=== PATIENT | male | born 1945 | race Caucasian/White ===

== ENCOUNTER 2017-01-12 04:00 | Inpatient (IN) | payer MEDICARE, BC ==
[~2017-01-12] VITALS: Ht 182.9 cm; Wt 98.6 kg
[2017-01-12] MEDS ORDERED: SODIUM CHLORIDE 0.9% 1L BAG IV* STA (04:17)
[2017-01-12] MEDS ORDERED: ACETAMINOPHEN 325 MG TAB PO STA (04:17)
[2017-01-12 04:44] LABS: ADD SCAN DIFF NO
--- NOTE | 2017-01-12 04:46 | RADRPT ---
PROCEDURE: XR Chest. CLINICAL INDICATION: Possible Sepsis TECHNIQUE: Single frontal chest x-ray. COMPARISON: None. FINDINGS: There is moderate elevation of the right hemidiaphragm apparent with right lower lung volume loss. Increased densities are seen in the right mid and lower lung and in the left lower lung which could be due to pulmonary edema or pneumonia The heart does not appear to be grossly enlarged. Mild pulm onary vascular prominence is apparent. ECG leads projected over the chest. Mild degenerative change s at left shoulder. The patient is rotated to the right. IMPRESSION: Moderate elevation of the right hemidiaphragm apparent with right lower lung volume loss. Increased densities are seen in the right mid and lower lung and in the left lower lung which could be due to pulmonary edema or pneumonia The heart does not appear to be grossly enlarged. Mild pulmonary vas cular prominence is apparent. RPTAT: HJES .Klaus Rodriguez MD, Date Time Electronically viewed and signed by .Klaus Rodriguez MD, on 01/12/2017 04:45 .S/
[2017-01-12 05:00] LABS: ABNORMAL IP MESSAGE 1; HEMATOCRIT 40.5 % (42.0-52.0); MEAN CORPUSCULAR HEMOGLOBIN 26.6 pg (29.0-33.0); MEAN CORPUSCULAR HGB CONC 32.1 g/dl (32.0-37.0); MEAN CORPUSCULAR VOLUME 82.8 fl (82.0-101.0); MEAN PLATELET VOLUME 9.3 fl (7.4-10.4); PLATELET COUNT 119 10^3/UL (140-415); RED BLOOD COUNT 4.89 10^6/ul (4.70-6.10); RED CELL DISTRIBUTION WIDTH 16.5 % (11.5-14.5); WHITE BLOOD COUNT 11.9 10^3/ul (4.8-10.8)
[2017-01-12] MEDS ORDERED: CEFEPIME 2GM/50 ML (PMX) 50 ML IVPB STA (05:01)
[2017-01-12 05:02] LABS: INR 2.54; PROTIME 27.7 Sec (12.2-14.2); PT RATIO 2.2
[2017-01-12 05:04] LABS: PARTIAL THROMBOPLASTIN TIME 47.7 Sec (25.0-35.0)
[2017-01-12 05:05] LABS: ALBUMIN 3.5 g/dl (3.3-4.9); POTASSIUM 3.7 mmol/L (3.5-5.1)
[2017-01-12 05:07] LABS: BILIRUBIN,INDIRECT 2.1 mg/dl (0-1.1); BILIRUBIN,TOTAL 2.1 mg/dl (0.2-1.3); CREATININE 1.27 mg/dl (0.61-1.24)
[2017-01-12 05:08] LABS: ALBUMIN/GLOBULIN RATIO 1.12; TOTAL PROTEIN 6.6 g/dl (6.1-8.1)
[2017-01-12 05:09] LABS: CALCIUM 8.5 mg/dl (8.4-10.2)
[2017-01-12 05:18] LABS: TROPONIN-I 0.039 ng/ml (0.00-0.12)
[2017-01-12 05:20] LABS: AADO2 Arterial 336.1 mmHg (7.0-24.0); Allen Test ACCEPTAB; Arterial Base Excess 2.9 mmol/L (-3.0-3); Arterial COHb 1.9 % (0.0-3.0); Arterial Fraction of Oxyhgb 92.3 % (93.0-99.0); Arterial HCO3 25.8 mmol/L (22.0-26.0); Arterial MetHb 5.3 % (0.0-1.5); Arterial Total Hemglobin 13.2 g/dl (12.0-18.0); Blood Gas IEPAP 15/5; MODE MASK - BIPAP
--- NOTE | 2017-01-12 05:21 | ERA ---
ER Documentation Chief Complaint Date/Time DATE: 01/12/17 TIME: 05:18 Chief Complaint weakness, fever HPI This is a 71-year-old male brought in by rescue for weakness and fever. Patient states been feeling weak and dizzy over the past few days. Fever started today. Patient's history is limited. Patient is noted to be satting 86 % on room air. ROS All systems reviewed and are negative except as per history of present illness. PMhx/Soc Anesthesia Reaction: No Hx Neurological Disorder: No Hx Respiratory Disorders: Yes (pneumonia) Hx Psychiatric Problems: No Hx Miscellaneous Medical Probl: Yes (diabetes) Hx Alcohol Use: No Hx Substance Use: No Hx Tobacco Use: No Smoking Status: Never smoker Physical Exam Vitals Vital Signs Date Time Temp Pulse Resp B/P Pulse Ox O2 Delivery O2 Flow Rate FiO2 01/12/17 04:46 101.3 107 20 169/70 96 BIPAP 01/12/17 04:40 103 97 100 01/12/17 04:06 101.6 112 20 175/86 97 Physical Exam Const: [] Head: Atraumatic Eyes: Normal Conjunctiva ENT: Normal External Ears, Nose and Mouth. Neck: Full range of motion..~ No meningismus. Resp: Clear to auscultation bilaterally Cardio: Regular rate and rhythm, no murmurs Abd: Soft, non tender, non distended. Normal bowel sounds Skin: No petechiae or rashes Back: No midline or flank tenderness Ext: No cyanosis, or edema Neur: Awake and alert Psych: Normal Mood and Affect Result Diagram: 01/12/17 0420 01/12/17 0420 Results 24 hrs Laboratory Tests Test 01/12/17 04:20 Activated Partial Thromboplast Time 47.7Sec Alanine Aminotransferase (ALT/SGPT) 25IU/L Albumin 3.5g/dl Albumin/Globulin Ratio 1.12 Alkaline Phosphatase 109IU/L Anion Gap 14 Aspartate Amino Transf (AST/SGOT) 24IU/L Blood Urea Nitrogen 23mg/dl Calcium Level Pending Carbon Dioxide Level 30mmol/L Chloride Level 88mmol/L Creatinine 1.27mg/dl Direct Bilirubin 0.00mg/dl Globulin 3.10g/dl Glucose Level 237mg/dl Hematocrit 40.5% Hemoglobin 13.0g/dl INR International Normalized Ratio 2.54 Indirect Bilirubin 2.1mg/dl Lactic Acid Level 2.9mmol/L Mean Corpuscular Hemoglobin 26.6pg Mean Corpuscular Hemoglobin Concent 32.1g/dl Mean Corpuscular Volume 82.8fl Mean Platelet Volume 9.3fl Platelet Count 76867^3/UL Potassium Level 3.7mmol/L Prothrombin Time 27.7Sec Prothrombin Time Ratio 2.2 Red Blood Count 4.8910^6/ul Red Cell Distribution Width 16.5% Sodium Level 128mmol/L Total Bilirubin 2.1mg/dl Total Protein 6.6g/dl Troponin I Pending White Blood Count 11.910^3/ul Current Medications Medications (Trade) Dose Ordered Sig/Ricardo Route PRN Reason Start Time Stop Time Status Last Admin Dose Admin Sodium Chloride (NS) 3,100 ml BOLUS OVER 2 HOURS STAT IV* 01/12/17 04:17 01/12/17 04:18 DC 01/12/17 04:56 Acetaminophen (Tylenol Tab) 650 mg ONCE STAT PO 01/12/17 04:17 01/12/17 04:19 DC 01/12/17 04:54 Furosemide 40 mg 40 mg ONCE ONCE IV 01/12/17 05:30 01/12/17 05:31 UNV Cefepime HCl 50 ml @ 100 mls/hr ONCE STAT IVPB 01/12/17 05:01 01/12/17 05:30 UNV Vancomycin HCl (Vancocin) 250 ml @ 125 mls/hr ONCE ONCE IVPB 01/12/17 05:30 01/12/17 07:29 UNV Procedures/MDM EKG: Rate/Rhythm: Normal Sinus Rhythm QRS, ST, T-waves: No changes consistent w/ acute ischemia Impression: No evidence of ischemia or arrhythmia Chest X-ray 1V Interpreted by me: Soft Tissue: No acute abnormalities Bones: No acute abnormalities Mediastinum/Cardiac Silhouette/Lungs: Right lower lobe pneumonia Patient's infectious symptoms have not stabilized and the patient is at risk of rapid decompensation. The patient will be admitted for careful hydration, antibiotic therapy, and infectious source control. Severe Sepsis Assessment: Infectious Source: Pneumonia End organ damage indicated by: [Lactate > 2.0 mmol/L Acute Resp Failure (sat < 92% w/o oxygen) Severe Sepsis Managment: Blood Cultures X 2 before broad spectrum antibiotics initiated within 3 hours of recognition. 30 ml/kg NS bolus Completed Initial Lactate: 2.9 Repeat Lactate pending Critical Care: Time: 45 minutes Treatments/Evaluations: Emergent fluid management, while maintaining close respiratory support. Immediate broad spectrum antibiotic therapy. Simultaneous assessment for possible sources in order to direct therapy. Consideration for invasive and chemical support to prevent respiratory or cardiac collapse. Septic Shock Assessment (1 hour post 30 ml/kg fluid bolus): Hypotension (SBP < 90 or 40 mmHg drop, MAP < 65): [No] Lactic acid > 4.0 [No] Perfusion Reassessment for Septic Shock: Temp 98.7, Pulse 108, RR 17, BP 132/77 Heart Exam: [Tachycardic] Lung Exam: [No Crackles] Capillary Refill: [Delayed] Peripheral Pulses: [Radially present] Skin: [Mottled, pale] Accepting Care Team: Current data and ongoing care discussed. Time: 5 AM Primary Provider: Hospitalist Consulting: [XOXOXO] Outstanding Data: none Critical Care: Time: 45 minutes Treatments/Evaluations: Close monitoring and treatment of unstable vital signs, cardiorespiratory, and neurologic status, while maintaining tight balance of fluid, respiratory, and cardiac interventions. Departure Diagnosis: Primary Impression: Sepsis Qualified Code: A41.9 - Sepsis, due to unspecified organism Condition: Critical JYOTHI TORRE Jan 12, 2017 05:21
[2017-01-12] MEDS ORDERED: FUROSEMIDE 40 MG INJ IV ONE (05:30)
[2017-01-12] MEDS ORDERED: VANCOMYCIN 1 GM (PMX) 250 ML IVPB ONE (05:30)
[2017-01-12] MEDS ORDERED: ONDANSETRON 4 MG INJ IV PRN (06:30)
[2017-01-12] MEDS ORDERED: NA PHOSPHATE/BIPHOS 133 ML ENEMA PR PRN (06:30)
[2017-01-12] MEDS ORDERED: LORAZEPAM 2 MG INJ IV PRN (06:30)
[2017-01-12] MEDS ORDERED: morphine 2 MG INJ IV PRN (06:30)
[2017-01-12] MEDS ORDERED: hydrALAzine 20 MG INJ IV PRN (06:30)
[2017-01-12] MEDS ORDERED: MAGNESIUM HYDROXIDE 30ML CUP PO PRN (06:30)
[2017-01-12] MEDS ORDERED: NACL 0.9% 3 ML SYG IV SCH (06:30)
[2017-01-12] MEDS ORDERED: DOCUSATE SODIUM 100 MG CAP PO PRN (06:30)
[2017-01-12] MEDS ORDERED: HYDROCODONE/APAP (5/325) TAB PO PRN (06:30)
[2017-01-12] MEDS ORDERED: VANCOMYCIN IV PER PHARMACY XX SCH (06:30)
[2017-01-12] MEDS ORDERED: NITROGLYCERIN (SL) 0.4 MG TAB SL PRN (06:30)
[2017-01-12] MEDS ORDERED: ACETAMINOPHEN 325 MG TAB PO PRN (06:30)
[2017-01-12] MEDS ORDERED: ALBUTEROL/IPRATROPIUM (NEB) 3 ML AMP HHN PRN (06:30)
[2017-01-12] MEDS: SOD CHLORIDE 0.45% 1,000 ML IV SCH ×2 (07:07→19:28)
--- NOTE | 2017-01-12 07:32 | HP ---
DATE OF ADMISSION: 01/12/2017 CHIEF COMPLAINT: Weakness and fevers. HISTORY OF PRESENT ILLNESS: A 71-year-old male with past medical history of diabetes and prior pneu monia who has been having weakness and fever for the last few days. He has also been feeling dizzy as well. When the patient arrived, he had a temperature of 101.6. He felt feverish at home as well . He also was noted today to be saturating at 86% on room air. Most of the information is obtained from the ER documentation as the patient is unable to provide a full HPI. He is presently on BiPAP . Again, that was started in the ER after an ABG today showed pH of 7.49, pCO2 of 34, PaO2 of 342, and bicarbonate of 25.8. The patient was also found with elevated lactic acid of 2.9 and some renal insufficiency and hyponatremia as well. PAST MEDICAL HISTORY: As stated above. ALLERGIES: NO KNOWN DRUG ALLERGIES. MEDICATIONS AT HOME: None. PAST SURGICAL HISTORY: None. SOCIAL HISTORY: Negative for smoking, drinking, or IV drug abuse. FAMILY HISTORY: Noncontributory today. PHYSICAL EXAMINATION: VITAL SIGNS: T-max 101.6, pulse 112 to 103, respirations 21, blood pressure 175 to 169 systolic ove r 86 to 70 diastolic, saturating at 96% on BiPAP. GENERAL: The patient is lying in bed on BiPAP, in no acute distress. HEENT: Pupils equal, round, react to light. Extraocular muscles intact. NECK: Supple, no thyromegaly. LUNGS: Distant breath sounds bilaterally. CARDIOVASCULAR: S1, S2 heard. No rubs or gallops. ABDOMEN: Soft, nontender, nondistended. Normal bowel sounds. No rebound or guarding. MUSCULOSKELETAL: No lower extremity edema bilaterally. NEUROLOGIC: No focal deficits. LABORATORIES: WBC 11.9, hemoglobin 13.0, hematocrit 40.5, platelets 119. Sodium 138, potassium 3.7 , chloride 88, CO2 30, BUN 23, creatinine 1.27, glucose 237. Lactic acid is 2.9, total bilirubin is 2.1, direct is 0.0. The rest of the LFTs are normal. The coags show PT of 27.7, INR of 2.5, PTT o f 47.7. The patient had a chest x-ray today that showed moderate elevation of the right hemidiaphra gm apparent with right lower lung volume loss, increased density seen in the right mid and lower liz g and in the left lower lung which could be due to pulmonary edema or pneumonia. Heart does not sebastián ear to be grossly enlarged, mild pulmonary vascular prominence is apparent. ASSESSMENT AND PLAN: A 71-year-old male coming in with hypoxia and fever and weakness with signs of sepsis with lactic acidosis, most likely secondary to upper respiratory infections. 1. Sepsis. Again, possible source being upper respiratory infection. He also has some respiratory distress. We will continue BiPAP. Consider getting pulmonary consult, put him on broad-spectrum a ntibiotics to treat upper respiratory infection. Check TSH, A1c, lipid panel. Tylenol p.r.n. pain and fevers as well, and pain control medications with Douglas and morphine p.r.n. as well. Check CBC and basic metabolic panel in the morning. Continue IV fluids and trend lactic acid as well. 2. Respiratory distress. Again, see #1. Continue DuoNebs p.r.n. as well and BiPAP, try to wean of f BiPAP as tolerated. 3. Hypertension. Blood pressure is high normal, hydralazine p.r.n. 4. Elevated INR. Unclear source. It is unknown if the patient is taking any Coumadin or other ant icoagulants at home. For now, hold all anticoagulants and continue to monitor INR. Will monitor fo r any signs of bleeding. 5. Gastrointestinal prophylaxis, proton pump inhibitor. 6. Deep venous thrombosis prophylaxis, sequential compression devices. Dictated By: BETH COSTA Conf#: [id number] DID#: [id number]
[2017-01-12] MEDS ORDERED: INSU300I SQ ×2 (08:59→12:23)
[2017-01-12] MEDS ORDERED: HEPARIN 5,000 UNIT/0.5 ML SYG SC SCH (09:00)
[2017-01-12] MEDS ORDERED: CYCL100C20 PO (10:13)
[2017-01-12] MEDS ORDERED: VANCOMYCIN 1.75 GM in NS 500 ML IVPB SCH (11:00)
[2017-01-12] MEDS ORDERED: PRED5 PO (11:24)
[2017-01-12] MEDS ORDERED: MAGN400T28 PO ×2 (11:26→12:23)
[2017-01-12] MEDS ORDERED: WARF4TAB52 PO (11:27)
[2017-01-12] MEDS ORDERED: WARF5TAB72 PO (11:33)
[2017-01-12] MEDS: VANCOMYCIN 1 GM in NS 250 ML IVPB SCH (11:36)
[2017-01-12 11:56] LABS: BASOPHIL # 0.1 10^3/ul (0.0-0.1); LYMPHOCYTES # 0.1 10^3/ul (0.8-2.9); MONOCYTE # 0.6 10^3/ul (0.3-0.9); NEUTROPHIL # 6.4 10^3/ul (1.6-7.5)
[2017-01-12] MEDS ORDERED: ADV25050 INHALATION (12:17)
[2017-01-12] MEDS ORDERED: DAP100 PO (12:18)
[2017-01-12] MEDS ORDERED: ALBU18HF INHALATION (12:18)
[2017-01-12] MEDS ORDERED: ATOR40TA68 PO (12:18)
[2017-01-12] MEDS ORDERED: FLUT16SP17 NASAL (12:19)
[2017-01-12] MEDS ORDERED: FLUT1AER INHALATION (12:19)
[2017-01-12] MEDS ORDERED: DUTA0.5C PO (12:19)
[2017-01-12] MEDS ORDERED: INSU200I SQ (12:21)
[2017-01-12] MEDS ORDERED: IPRA12.93 INHALATION (12:21)
[2017-01-12] MEDS ORDERED: LANT3I SC ×2 (12:22)
[2017-01-12] MEDS ORDERED: MYCO500T13 PO (12:23)
[2017-01-12] MEDS ORDERED: UMEC62.5 IH (12:24)
[2017-01-12] MEDS ORDERED: OMEP20CA16 PO (12:24)
[2017-01-12] MEDS: PIPER-TAZO 3.375 GM IV (PMX) 100 ML IVPB SCH ×3 (13:57→23:16)
[2017-01-12 16:34] LABS: AADO2 Arterial 251.7 mmHg (7.0-24.0); Allen Test ACCEPTAB; Arterial Base Excess 0.6 mmol/L (-3.0-3); Arterial COHb 1.2 % (0.0-3.0); Arterial Fraction of Oxyhgb 89.2 % (93.0-99.0); Arterial HCO3 24.5 mmol/L (22.0-26.0); Arterial Total Hemglobin 12.6 g/dl (12.0-18.0); MODE MASK - SIMPLE
--- NOTE | 2017-01-12 18:18 | RADRPT ---
Echocardiogram Report Patient Name: CARLOS DAWSON Gender: Male Date: 1945 Study Date: 12-Jan-2017 Personnel Psychologist: Harmony Blanco RDCS Location: [facility], [place] Ref. Physician: BETH PATTON Quality: Adequate Procedures: Transthoracic echocardiogram with complete 2D, M-Mode, and doppler examination. Indications: Chest Pain. 2D/M Mode Doppler Measurement Value Normal Ranges Measurement Value Normal Ranges LVIDd 2D 4.8 3.5 - 5.6 cm AV Peak Alejo 1.4 m/sec LVIDs 2D 3.2 2.1 - 4.1 cm AV Peak PG 7.0 mmHg FS 2D 32.6 % LVOT Peak Alejo 0.9 m/sec LVPWd 2D 1.0 0.6 - 1.1 cm LVOT Peak PG 3.0 mmHg IVSd 2D 1.1 0.6 - 1.1 cm MV E Peak Alejo 0.7 m/sec IVS/LVPW 2D 1.1 MV A Peak Alejo 0.5 m/sec AoR Diam 2D 2.9 2.0 - 3.7 cm MV E/A 1.3 LA/Ao 2D 1 0 - 1 MV Decel Time 243 msec EDV 2D 109.0 cm3 MV E/A 1.3 ESV 2D 33.4 cm3 TR Peak Alejo 2.2 m/sec LA Dimen 2D 4.2 2.3 - 4.0 cm TR Peak PG 19.0 mmHg RVSP 22.0 mmHg Findings Left Ventricle: Normal left ventricular systolic function. Normal left ventricular cavity size. Normal left ventricular wall thickness. Ejection fraction is visually estimated at 55 %. Tissue Doppler/Mitral Doppler indices are within normal limits. Right Ventricle: Normal right ventricular size. Normal right ventricular systolic function. Left Atrium: There is mild enlargement of left atrium. Right Atrium: The right atrium is normal in size. Mitral Valve: Normal appearance and function of the mitral valve with trace physiologic regurgitation. Aortic Valve: Normal appearance of the aortic valve. No significant aortic stenosis or insufficiency. Tricuspid Valve: Normal appearance of the tricuspid valve. Estimated peak PA systolic pressure 22 mmHg. There is trace tricuspid regurgitation. Pulmonic Valve: Pulmonic valve not well visualized. Pericardium: Normal pericardium with no significant pericardial effusion. Aorta: Normal aortic root. IVC: Normal size and normal respiratory collapse consistent with normal right atrial pressure. Conclusions 1.Normal left ventricular systolic function. Normal left ventricular cavity size. Normal left ventricular wall thickness. Ejection fraction is visually estimated at 55 %. Tissue Doppler/Mitral Doppler indices are within normal limits. 2.There is mild enlargement of left atrium. 3.Normal appearance and function of the mitral valve with trace physiologic regurgitation. 4.Normal appearance of the tricuspid valve. Estimated peak PA systolic pressure 22 mmHg. There is trace tricuspid regurgitation. Electronically Signed By: Nicolas Barrera 12-Jan-2017 18:17:25 -0700 Patient Name: CARLOS DAWSON Study Date: 12-Jan-2017 [id number]
[2017-01-12 19:57] VITALS: TEMP 98
[2017-01-12 20:36] VITALS: PULSE 86; PULSE 92
[2017-01-12 20:45] VITALS: Ht 182.9 cm; Wt 98.6 kg
[2017-01-12 21:01] VITALS: BP 159/78; RESP 17
[2017-01-12 21:21] VITALS: PULSE 101
[2017-01-12] MEDS ORDERED: ALBUTEROL 0.083% (NEB) 2.5 MG/3 ML AMP HHN PRN (21:30)
[2017-01-12] MEDS ORDERED: NON-FORMULARY/PATIENT OWN MED (Omeprazole* 20 MG) PO SCH (21:30)
[2017-01-12] MEDS: VALGANCICLOVIR 450 MG TAB PO SCH (23:17)
[2017-01-12] MEDS: DAPSONE 100 MG TAB PO SCH (23:20)
[2017-01-12] MEDS: CYCLOSPORINE MICROEMULS 100 MG CAP PO SCH (23:35)
[2017-01-13] VITALS (12 sets, daily range): BP systolic 122–172; BP diastolic 57–82; PULSE 70–111; RESP 15–19
[2017-01-13] MEDS ORDERED: SPECIAL NON-STANDARD MEDICATION PO SCH ×3 (02:30→09:00)
[2017-01-13] MEDS: VANCOMYCIN 1 GM in NS 250 ML IVPB SCH ×2 (02:33→15:04)
[2017-01-13] MEDS ORDERED: WARFARIN 5 MG TAB PO SCH (03:00)
[2017-01-13] MEDS ORDERED: PANTOPRAZOLE SODIUM 20 MG TABEC PO SCH (03:00)
[2017-01-13] MEDS: MYCOPHENOLATE 250 MG CAP PO SCH ×3 (03:33→21:19)
[2017-01-13] MEDS: PIPER-TAZO 3.375 GM IV (PMX) 100 ML IVPB SCH ×4 (04:07→17:11)
[2017-01-13] MEDS: PANTOPRAZOLE 40 MG INJ IV SCH (06:32)
[2017-01-13] MEDS ORDERED: INSULIN DETEMIR [LEVEMIR] 3ML CART SC SCH ×2 (08:00→20:00)
--- NOTE | 2017-01-13 08:08 | DS ---
DATE OF ADMISSION: 01/12/2017 DATE OF DISCHARGE: 01/12/2017 DISCHARGE DIAGNOSES: 1. Tracheobronchitis. 2. 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 HOSPITAL COURSE: The patient is stable this morning with improved hypoxemia, currently on BiPAP and likely stable on nasal cannula O2. Case was discussed with the transplant coordinators at [facility] and they have accepted transfer back to [facility] to continue care. Currently, the patient is stable to tra nsfer to telemetry unit at [facility] and likely be weaned off BiPAP shortly. MEDICATIONS: Per chart. ALLERGIES: NONE. CONDITION ON TRANSFER: Stable. Dictated By: AMY BERRY MD SV/NTS Conf#: [id number] DID#: [id number]
[2017-01-13 08:23] LABS: CHOL/HDL RATIO 3.9 RATIO
[2017-01-13 08:37] LABS: THYROID STIMULATING HORMONE 1.73 MIU/L (0.465-4.680)
[2017-01-13] MEDS: SOD CHLORIDE 0.45% 1,000 ML IV SCH (08:48)
[2017-01-13] MEDS ORDERED: UMECLIDINIUM BROMIDE IH SCH (09:00)
[2017-01-13] MEDS ORDERED: NON-FORMULARY/PATIENT OWN MED (Fluticasone-Vilanterol (Breo Ellipta Inhaler) 1 PUFF) INHALATION SCH (09:00)
[2017-01-13 09:12] LABS: AADO2 Arterial 135.8 mmHg (7.0-24.0); Allen Test ACCEPTAB; Arterial Base Excess 0.3 mmol/L (-3.0-3); Arterial COHb 1.7 % (0.0-3.0); Arterial Fraction of Oxyhgb 89.9 % (93.0-99.0); Arterial HCO3 24.8 mmol/L (22.0-26.0); Arterial MetHb 5.4 % (0.0-1.5); Arterial Total Hemglobin 12.4 g/dl (12.0-18.0); MODE NASAL CANNULA
[2017-01-13] MEDS: IPRATROPIUM (HFA) 12.9 GM INHALER INH SCH ×4 (09:13→21:19)
[2017-01-13] MEDS: FLUTICASONE 0.05% 16 GM NAS SPRAY NASAL SCH (09:13)
[2017-01-13] MEDS: DUTASTERIDE 0.5 MG CAP PO SCH (09:13)
--- NOTE | 2017-01-13 09:16 | RADRPT ---
PROCEDURE: XR Chest 1 View. CLINICAL INDICATION: Shortness of breath TECHNIQUE: AP view of the chest was obtained. COMPARISON: Yesterday FINDINGS: The cardiomediastinal silhouette is within normal limits. Elevation right hemidiaphragm is unchanged . Patchy infiltrates at the right lung base, possibly combined small pleural effusion have mildly i ncreased. Scattered atelectasis is noted in the left lung. The osseous structures are unchanged. IMPRESSION: Stable elevation of the right hemidiaphragm. Mild interval increase in patchy right basilar infiltrates, combined with small pleural effusion. Scattered atelectasis in the left lung. RPTAT: AA .Renato Espinoza MD, MD Date Time Electronically viewed and signed by .Renato Espinoza MD, on 01/13/2017 09:16 .P/
[2017-01-13] MEDS: VALGANCICLOVIR 450 MG TAB PO SCH ×2 (09:17→21:19)
[2017-01-13 09:34] LABS: ADD SCAN DIFF NO
[2017-01-13 09:39] LABS: ABNORMAL IP MESSAGE 1; BASOPHILS % 0.1 % (0.0-2.0); EOSINOPHILS # 0.1 10^3/ul (0.0-0.5); EOSINOPHILS % 0.9 % (0.0-7.0); HEMATOCRIT 35.7 % (42.0-52.0); HEMOGLOBIN 11.4 g/dl (14.0-18.0); LYMPHOCYTES # 0.2 10^3/ul (0.8-2.9); LYMPHOCYTES % 2.5 % (15.0-51.0); MEAN CORPUSCULAR HEMOGLOBIN 27.3 pg (29.0-33.0); MEAN CORPUSCULAR HGB CONC 31.9 g/dl (32.0-37.0); MEAN CORPUSCULAR VOLUME 85.6 fl (82.0-101.0); MONOCYTE # 0.7 10^3/ul (0.3-0.9); NEUTROPHIL # 7.6 10^3/ul (1.6-7.5); NEUTROPHILS % 87.7 % (39.0-77.0); PLATELET COUNT 117 10^3/UL (140-415); RED BLOOD COUNT 4.17 10^6/ul (4.70-6.10); RED CELL DISTRIBUTION WIDTH 16.7 % (11.5-14.5); WHITE BLOOD COUNT 8.7 10^3/ul (4.8-10.8)
[2017-01-13 09:48] LABS: POTASSIUM 4.1 mmol/L (3.5-5.1)
[2017-01-13 09:49] LABS: INR 3.66; PT RATIO 2.9
[2017-01-13 09:50] LABS: CREATININE 1.13 mg/dl (0.61-1.24)
[2017-01-13 09:51] LABS: CALCIUM 8.1 mg/dl (8.4-10.2); MAGNESIUM 2.1 mg/dl (1.7-2.5); PHOSPHORUS 2.5 mg/dl (2.5-4.9)
--- NOTE | 2017-01-13 11:07 | CONS ---
DATE OF ADMISSION: 01/12/2017 DATE OF CONSULTATION: 01/13/2017 TYPE OF CONSULTATION: Pulmonary. REASON FOR CONSULTATION: Shortness of breath. Thank you, Dr. Ceballos, for this consultation. HISTORY OF PRESENT ILLNESS: This is a 71-year-old gentleman with history of liver transplant perfor med in 1998 for primary biliary cirrhosis, recently seen at [facility] for increasing cough, evan estion noted to have evidence of infiltrates on chest x-ray concerning for community-acquired pneumo matthew. The patient presented here with increasing shortness of breath, increasing congestion and hypo xemia, found to have mild methemoglobinemia and evidence of bilateral infiltrates consistent with a pneumonic process. In addition, he had moderate hypoxemia, initially requiring noninvasive positive pressure ventilation. PAST MEDICAL HISTORY: Includes 1. History of liver transplant. 2. Diabetes mellitus. 3. Anticoagulation. PLAN: 1. Continue antirejection medications. 2. Continue broad-spectrum antibiotics, currently on Valcyte, Zosyn and vancomycin. 3. Add Lasix for possible component of mild failure. 4. Liaise with liver transplant team. 5. Pending transfer back to [facility] for continuing care. 6. ID consultation. Dictated By: AMY BOYD/HILARIO Conf#: [id number] DID#: [id number]
[2017-01-13] MEDS: predniSONE 5 MG TAB PO SCH (11:13)
[2017-01-13] MEDS: FUROSEMIDE 40 MG INJ IV SCH (11:15)
[2017-01-13] MEDS: ALBUTEROL/IPRATROPIUM (NEB) 3 ML AMP HHN SCH ×2 (13:26→20:22)
--- NOTE | 2017-01-13 14:37 | PN ---
Date/Time of Note Date/Time of Note DATE: 01/13/17 TIME: 14:29 Assessment/Plan VTE Prophylaxis VTE Prophylaxis Intervention: other (coumadin) Lines/Catheters [facility] Peripheral IV Urinary Cath still in place: No Assessment/Plan Assessment/Plan A 71-year-old male coming in with hypoxia and fever and weakness with signs of sepsis with lactic acidosis, 1. Sepsis + Lactic acidosis 2/2 #2. 2. Acute Respiratory failure: improved 3. Bilateral Pneumonia (Recurrent versus incompletely treated) Patient was treated for similar about 6 weeks ago and discharged on 3months of dapsone therapy Family has opted to stop dapsone based on side effects of elevated methemoglobin 4. 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 Hypertension. 6. 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 Elevated INR. 8. Dyslipidemia 9. BPH 9. Diabetes type 2 on insulin therapy PLAN: * Patient will be best served by transfer to his transplant team for management of his bilateral to avoid drug toxicities and interactions / bed pending * Obtain actual clinical diagnosis from last admission as well as culture results and indication for dapsone therapy * Meanwhile continue broad spectrum abx therapy here / ID consult / sputum cultures * Continue bronchodilator therapy / supplemental O2 / gentle lasix diuresis * obtain 2 D echo * Continue all antirejection meds * Hold today's dose of coumadin and resume at lower dose * Start low dose ACEi for BP control * Diabetic diet / SSI * Supportive care Gastrointestinal prophylaxis, proton pump inhibitor. Deep venous thrombosis prophylaxis: [place] Subjective 24 Hr Interval Summary Free Text/Dictation * Feels better * Still coughing a lot * recently treated for PNA about 6 weeks ago, was supposed to complete 3 months of dapsone therapy Exam/Review of Systems Vital Signs Vitals Vital Signs Date Time Temp Pulse Resp B/P Pulse Ox O2 Delivery O2 Flow Rate FiO2 01/13/17 12:28 97.9 80 19 172/78 91 01/13/17 08:20 Nasal Cannula 6.0 01/12/17 13:38 50 Intake and Output 01/12/17 01/12/17 01/13/17 14:59 22:59 06:59 Intake Total 200 ml Output Total 300 ml Balance -100 ml Exam Constitutional: alert, obese, oriented, other (still ill looking) Psych: anxiety Head: normocephalic Eyes: PERRL Neck: supple, No jvd Respiratory: congested cough, diminished breath sounds Cardiovascular: murmurs/extra sounds (?), regular rate and rhythm Gastrointestinal: bowel sounds, non-tender, soft, surgical scars (healed) Extremities: No edema Neurological: lethargic, nl mental status, nl speech Results Result Diagram: 01/13/17 0930 01/13/17 0930 Results 24 hrs Laboratory Tests Test 01/12/17 16:00 01/12/17 17:45 01/13/17 07:00 01/13/17 07:01 Arterial Blood HCO3 24.5 24.8 Arterial Blood Base Excess 0.6 0.3 Arterial Blood Oxygen Saturation 98.2 96.8 Greg Test ACCEPTAB ACCEPTAB Arterial Blood Gas Puncture Site Right Radial Right Radial Arterial Blood Carboxyhemoglobin 1.2 1.7 Arterial Blood Date Drawn 01/12/2017 4:16:19 PM 01/13/2017 9:01:00 AM Arterial Blood Methemoglobin 8.0 H 5.4 H Arterial Blood pCO2 (Temp correct) 37.2 39.5 Arterial Blood pH (Temp corrected) 7.437 7.416 Arterial Blood pO2 (Temp corrected) 142.4 H 96.7 H Blood Gas A-a O2 Differential 251.7 H 135.8 H Blood Gas Actual Respiration Rate 22 Blood Gas Critical Value Read Back DR. JAMAL YANEZ RN Blood Gas Modality MASK - SIMPLE NASAL CANNULA Blood Gas Notified Time 01/12/2017 4:34:17 PM 01/13/2017 9:09:29 AM Blood Gas Notified Whom EDEN RUFF Blood Gas Specimen Source Blood arterial Blood arterial Blood Gas Temperature 37.0 37.0 FiO2 61.0 39.0 Oxyhemoglobin Percent 89.2 L 89.9 L Total Hemoglobin 12.6 12.4 Lactic Acid Level 1.0 Cholesterol Level 82 L Cholesterol/HDL Ratio 3.9 HDL Cholesterol 21 L Hemoglobin A1c 7.0 H LDL Cholesterol, Calculated 37 Thyroid Stimulating Hormone (TSH) 1.730 Triglycerides Level 118 Test 01/13/17 09:30 Anion Gap 12 Basophils # 0.0 Basophils % 0.1 Blood Urea Nitrogen 29 H Calcium Level 8.1 L Carbon Dioxide Level 30 Chloride Level 94 L Creatinine 1.13 Eosinophils # 0.1 Eosinophils % 0.9 Glucose Level 201 Hematocrit 35.7 L Hemoglobin 11.4 L INR International Normalized Ratio 3.66 Lymphocytes # 0.2 L Lymphocytes % 2.5 L Magnesium Level 2.1 Mean Corpuscular Hemoglobin 27.3 L Mean Corpuscular Hemoglobin Concent 31.9 L Mean Corpuscular Volume 85.6 Mean Platelet Volume 10.0 Monocytes # 0.7 Monocytes % 8.0 Neutrophils # 7.6 H Neutrophils % 87.7 H Nucleated Red Blood Cells # 0.0 Nucleated Red Blood Cells % 0.0 Phosphorus Level 2.5 Platelet Count 117 L Potassium Level 4.1 Prothrombin Time 37.0 #H Prothrombin Time Ratio 2.9 Red Blood Count 4.17 L Red Cell Distribution Width 16.7 H Sodium Level 132 L White Blood Count 8.7 # Medications Medications Current Medications Ondansetron HCl (Zofran Inj) 4 mg Q6H PRN IV NAUSEA AND/OR VOMITING; Start at 06:30 Acetaminophen (Tylenol Tab) 650 mg Q6H PRN PO PAIN LEVEL 1-3 OR FEVER; Start at 06:30 Acetaminophen/ Hydrocodone Bitart ([place] (5/325)) 1 tab Q6H PRN PO MODERATE PAIN LEVEL 4-6; Start 01/12/17 at 06:30 Morphine Sulfate (morphine) 2 mg Q4H PRN IV SEVERE PAIN LEVEL 7-10; Start 01/12 at 06:30 Docusate Sodium (Colace) 100 mg Q12H PRN PO CONSTIPATION; Start 01/12/17 at 06: 30 Magnesium Hydroxide (Milk Of Mag) 30 ml DAILY PRN PO CONSTIPATION; Start at 06:30 Sodium Biphosphate/ Sodium Phosphate (Fleet Enema) 133 ml DAILY PRN [place] CONSTIPATION; Start 01/12/17 at 06:30 Pantoprazole 40 mg 40 mg DAILY@06 IV Last administered on 01/13/17 06:32; Admin Dose 40 MG; Start 01/13/17 at 06:00 Sodium Chloride (1/2 NS) 1,000 ml @ 75 mls/hr [id number] IV Last administered on 01/12/17 19:28; Admin Dose 75 MLS/HR; Start 01/12/17 at 06:08 Lorazepam 0.5 mg 0.5 mg Q6H PRN IV ANXIETY; Start 01/12/17 at 06:30 Piperacillin Sod/ Tazobactam Sod (Zosyn 3.375gm/ 100 ml (Pmx)) 100 ml @ 200 mls /hr Q6 IVPB Last administered on 01/13/17 11:14; Admin Dose 200 MLS/HR; Start 01/12/17 at 12:00 Vancomycin HCl (Vanco Iv Per Pharmacy) VANCOMYCIN PER PHARMACY NOTE XX ; Start 01/12/17 at 06:30 Hydralazine HCl (Apresoline) 10 mg Q6H PRN IV ELEVATED BLOOD PRESSURE; Start at 06:30 Clonidine (Catapres) 0.1 mg Q6H PRN PO ELEVATED BLOOD PRESSURE; Start 01/12/17 at 06:30 Nitroglycerin 1 tab 1 tab Q5M PRN SL ANGINA; Start 01/12/17 at 06:30 Vancomycin HCl (Vancocin) 250 ml @ 125 mls/hr Q12H IVPB Last administered on 02:33; Admin Dose 125 MLS/HR; Start 01/12/17 at 11:00 Atorvastatin Calcium (Lipitor) 40 mg QHS PO ; Start 01/13/17 at 21:00 Cyclosporine (Neoral) 100 mg BID PO Last administered on 01/12/17 23:35; Admin Dose 100 MG; Start 01/13/17 at 09:00 Dapsone (Dapsone) 100 mg DAILY PO ; Start 01/13/17 at 09:00 Dutasteride (Avodart) 0.5 mg DAILY PO Last administered on 01/13/17 09:13; Admin Dose 0.5 MG; Start 01/13/17 at 09:00 Fluticasone Propionate (Flonase 0.05% Nasal) 1 spray DAILY NASAL Last administered on 01/13/17 09:13; Admin Dose 1 SPRAY; Start 01/13/17 at 09:00 Ipratropium [place] (Atrovent Hfa) 2 puff QID INH Last administered on 09:13; Admin Dose 2 PUFF; Start 01/13/17 at 09:00 Miscellaneous Information 1 puff DAILY INHALATION ; Start 01/13/17 at 09:00; Status UNV Miscellaneous Information 75 unit QAM SQ ; Start 01/13/17 at 09:00; Status UNV Miscellaneous Information 22 unit TID SQ ; Start 01/13/17 at 09:00; Status UNV Miscellaneous Information 1 puff DAILY IH ; Start 01/13/17 at 09:00; Status UNV Insulin Detemir (Levemir) Patient's Usual Dose of Lantus DAILY@20 SC ; Start at 20:00; Status UNV Insulin Detemir (Levemir) Patient's Usual Dose of Lantus DAILY@08 SC ; Start at 08:00; Status UNV Valganciclovir (Valcyte) 450 mg BID PO Last administered on 01/13/17 09:17; Admin Dose 450 MG; Start 01/12/17 at 23:00 Mycophenolate Mofetil (Cellcept) 1,000 mg BID PO Last administered on 09:16; Admin Dose 1,000 MG; Start 01/13/17 at 02:45 Warfarin Sodium (Coumadin) 5 mg MoFr@17 PO ; Start 01/16/17 at 17:00 Warfarin Sodium (Coumadin) 4 mg SuTuWeThSa@17 PO Last administered on 03:34; Admin Dose 4 MG; Start 01/13/17 at 17:00; Status Future Hold Miscellaneous Information (*Order Clarification Bulletin) MEDICATION REQUIRES CLARIFICATI... Q8H XX ; Start 01/13/17 at 08:30 Miscellaneous Information (*Order Clarification Bulletin) MEDICATION REQUIRES CLARIFICATI... Q8H XX ; Start 01/13/17 at 08:30 Prednisone (Prednisone) 5 mg DAILY PO Last administered on 01/13/17 11:13; Admin Dose 5 MG; Start 01/13/17 at 11:00 Furosemide (Lasix) 40 mg DAILY IV Last administered on 01/13/17 11:15; Admin Dose 40 MG; Start 01/13/17 at 11:00 Miscellaneous Information (*Rx Drug Level Order Reminder*) VANCOMYCIN TROUGH LEVEL @ 200 ONCE ONCE XX ; Start 01/13/17 at 22:00; Stop 01/13/17 at 22:01 Procedures Procedures PROCEDURE: XR Chest 1 View. CLINICAL INDICATION: Shortness of breath TECHNIQUE: AP view of the chest was obtained. COMPARISON: Yesterday FINDINGS: The cardiomediastinal silhouette is within normal limits. Elevation right hemidiaphragm is unchanged. Patchy infiltrates at the right lung base, possibly combined small pleural effusion have mildly increased. Scattered atelectasis is noted in the left lung. The osseous structures are unchanged. IMPRESSION: Stable elevation of the right hemidiaphragm. Mild interval increase in patchy right basilar infiltrates, combined with small pleural effusion. Scattered atelectasis in the left lung. RPTAT: AA .Renato Espinoza MD, MD Date Time Electronically viewed and signed by .Renato Espinoza MD, MD on 01/13/2017 09:16 .P/ CC: AMY BERRY MD, [facility] FRANSISCO CAM Jan 13, 2017 14:37
[2017-01-13] MEDS ORDERED: DEXTROSE 50% 50 ML SYRINGE IV PRN ×2 (15:00)
[2017-01-13] MEDS ORDERED: GLUCOSE GEL 15 GRAM TUBE PO PRN ×2 (15:00)
[2017-01-13] MEDS ORDERED: GLUCAGON 1 MG INJ IM PRN (15:00)
[2017-01-13] MEDS ORDERED: GLUCOSE GEL 15 GRAM TUBE BUCCAL PRN (15:00)
--- NOTE | 2017-01-13 16:44 | CONS ---
DATE OF ADMISSION: 01/12/2017 DATE OF CONSULTATION: 01/13/2017 TYPE OF CONSULTATION: Infectious Disease. REASON FOR CONSULTATION: Antibiotic management. HISTORY OF PRESENT ILLNESS: Devendra Carbajal is a 71-year-old male who comes in now with weakness an d fever and is being seen for antibiotic management. His past problems include: 1. Adult-onset diabetes mellitus. 2. History of prior pneumonia. The patient comes in with weakness and fever, also with dizziness. He had a temperature of 101.6 on admission, and was febrile at home as well. His saturation in the emergency room was 86% and was put on BiPAP. ABG showed a pH of 7.49, pCO2 of 34, pO2 of ____ on o xygen. His lactic acid was 2.9. He had renal insufficiency and hyponatremia. His white count was 11.9, H and H of 13 and 40.5, platelet count 119,000. BUN and creatinine 23/1.27, glucose 237. Lac tic acid 2.9. Other liver function tests are normal. Coags showed PT of 27.7. INR 2.5, PTT 47.7. Chest x-ray shows elevation of the right hemidiaphragm with right lower lung volume loss, increased density in the right mid and lower lung and left lower lobe of the lung which could be pulmonary ed kaela or pneumonia. PAST MEDICAL HISTORY: Operations as outlined. FAMILY HISTORY: Noncontributory. SOCIAL HISTORY: He does not smoke, drink or abuse drugs. ALLERGIES: NONE TO PENICILLIN, SULFA OR FOODS. MEDICATIONS: Per chart. REVIEW OF SYSTEMS: As per HPI. PHYSICAL EXAMINATION: GENERAL: The patient is a well-developed, well-nourished male who is hypoxic and in some distress, although he is doing better now. The patient is afebrile. SKIN: Without generalized rash. HEENT: Within normal limits. NECK: Supple. LYMPH NODES: None palpable. CHEST: Decreased breath sounds at the bases. HEART: Without murmur or gallop. ABDOMEN: Soft, nontender, without organosplenomegaly or masses. EXTREMITIES: Without cyanosis, clubbing, or edema. RECTAL AND GENITAL: Deferred. NEUROLOGIC: No focal neurological abnormalities. IMPRESSION AND PLAN: The patient is a 76-year-old male who comes in with hypoxemia and fever and mo st likely bilateral pneumonitis. The patient was started on antibiotic therapy. He is on vancomyci n and Zosyn at the present time and also on dapsone. 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 He was f ound to have mild Methemoglobinemia as well with bilateral infiltrates consistent with a pneumonic p rocess, so he is on antirejection medication as well. He is on Valcyte, vancomycin and Zosyn, and L asix. I will dictate my findings to the hospitalist as well as to Dr. Zuniga. His blood cultures are negative. Dictated By: DANAY CONNOR MD, JD/HILARIO Conf#: [id number] DID#: [id number]
[2017-01-13] MEDS ORDERED: WARFARIN 2 MG TAB PO SCH (17:00)
[2017-01-13] MEDS: INSULIN ASPART [NOVOLOG] 3 ML PEN SC SCH ×3 (17:19→21:00)
[2017-01-13] MEDS: [UNRECOGNIZED DRUG - REMARK] XX SCH ×2 (20:02→20:14)
[2017-01-13] MEDS: MAGNESIUM OXIDE 400 MG TAB PO SCH (21:19)
[2017-01-13] MEDS: ATORVASTATIN 40 MG TAB PO SCH (21:19)
[2017-01-13] MEDS: CYCLOSPORINE MICROEMULS 100 MG CAP PO SCH (21:38)
[2017-01-14] VITALS (13 sets, daily range): BP systolic 142–185; BP diastolic 63–86; PULSE 84–100; RESP 15–20
[2017-01-14] MEDS: PIPER-TAZO 3.375 GM IV (PMX) 100 ML IVPB SCH ×5 (00:09→23:33)
[2017-01-14] MEDS: SOD CHLORIDE 0.45% 1,000 ML IV SCH ×3 (00:09→21:15)
[2017-01-14] MEDS: [UNRECOGNIZED DRUG - REMARK] XX SCH ×3 (00:10→16:30)
[2017-01-14] MEDS: ACCU-CHEK XX SCH (02:00)
[2017-01-14] MEDS: VANCOMYCIN 1 GM in NS 250 ML IVPB SCH ×2 (02:44→15:50)
[2017-01-14] MEDS: PANTOPRAZOLE 40 MG INJ IV SCH (05:35)
[2017-01-14] MEDS: ALBUTEROL/IPRATROPIUM (NEB) 3 ML AMP HHN SCH ×3 (08:01→19:26)
[2017-01-14] MEDS: INSULIN ASPART [NOVOLOG] 3 ML PEN SC SCH ×7 (08:09→21:00)
[2017-01-14 08:47] LABS: INR 3.18; PROTIME 33.1 Sec (12.2-14.2); PT RATIO 2.6
[2017-01-14] MEDS ORDERED: NON-FORMULARY/PATIENT OWN MED (Fluticasone-Vilanterol (Breo Ellipta Inhaler) 1 PUFF) XX SCH (09:00)
[2017-01-14 09:06] LABS: ADD SCAN DIFF NO
[2017-01-14 09:14] LABS: ABNORMAL IP MESSAGE 1; BASOPHILS % 0.3 % (0.0-2.0); EOSINOPHILS # 0.2 10^3/ul (0.0-0.5); EOSINOPHILS % 2.4 % (0.0-7.0); HEMOGLOBIN 11.1 g/dl (14.0-18.0); LYMPHOCYTES # 0.3 10^3/ul (0.8-2.9); LYMPHOCYTES % 3.6 % (15.0-51.0); MEAN CORPUSCULAR HEMOGLOBIN 26.4 pg (29.0-33.0); MEAN CORPUSCULAR HGB CONC 30.8 g/dl (32.0-37.0); MEAN CORPUSCULAR VOLUME 85.5 fl (82.0-101.0); MEAN PLATELET VOLUME 9.9 fl (7.4-10.4); MONOCYTE # 0.8 10^3/ul (0.3-0.9); MONOCYTES % 10.9 % (0.0-11.0); NEUTROPHIL # 5.8 10^3/ul (1.6-7.5); NEUTROPHILS % 81.3 % (39.0-77.0); PLATELET COUNT 133 10^3/UL (140-415); RED BLOOD COUNT 4.21 10^6/ul (4.70-6.10); RED CELL DISTRIBUTION WIDTH 16.8 % (11.5-14.5); WHITE BLOOD COUNT 7.1 10^3/ul (4.8-10.8)
[2017-01-14 09:15] LABS: POTASSIUM 3.6 mmol/L (3.5-5.1)
[2017-01-14 09:18] LABS: CALCIUM 8.2 mg/dl (8.4-10.2); CREATININE 1.07 mg/dl (0.61-1.24)
[2017-01-14] MEDS: INSULIN GLARGINE [LANtus] 3 ML PEN SC SCH (09:27)
[2017-01-14] MEDS: FUROSEMIDE 40 MG INJ IV SCH (09:29)
[2017-01-14] MEDS: CYCLOSPORINE MICROEMULS 100 MG CAP PO SCH ×2 (09:31→21:15)
[2017-01-14] MEDS: MYCOPHENOLATE 250 MG CAP PO SCH ×2 (09:32→21:15)
[2017-01-14] MEDS: DUTASTERIDE 0.5 MG CAP PO SCH (09:33)
[2017-01-14] MEDS: MAGNESIUM OXIDE 400 MG TAB PO SCH ×2 (09:33→21:19)
[2017-01-14] MEDS: predniSONE 5 MG TAB PO SCH (09:33)
[2017-01-14] MEDS: DAPSONE 100 MG TAB PO SCH (09:34)
[2017-01-14] MEDS: VALGANCICLOVIR 450 MG TAB PO SCH ×2 (09:34→21:15)
[2017-01-14] MEDS: IPRATROPIUM (HFA) 12.9 GM INHALER INH SCH ×4 (09:35→21:16)
--- NOTE | 2017-01-14 10:27 | PN ---
Date/Time of Note Date/Time of Note DATE: 01/14/17 TIME: 10:21 Assessment/Plan VTE Prophylaxis VTE Prophylaxis Intervention: other (coumadin) Lines/Catheters IV [facility] Peripheral IV Urinary Cath still in place: No Assessment/Plan Assessment/Plan 71-year-old male coming in with hypoxia and fever and weakness with signs of sepsis with lactic acidosis, 1. Sepsis + Lactic acidosis 2/2 #2. 2. Acute Respiratory failure: improved, Patient still requiring high flow o2 Echo wasn't impressive with Ef 55% and no significant valvular deficit 3. Bilateral Pneumonia (Recurrent versus incompletely treated) Patient was treated for similar about 6 weeks ago and discharged on 3months of dapsone therapy Family has opted to stop dapsone based on side effects of elevated methemoglobin 4. 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 Hypertension. 6. Hx of DVT with "other diagnosis" warranting lifelong Coumadin therapy 7. Supratherapeutic INR: improving 8. Dyslipidemia 9. BPH 9. Diabetes type 2 on insulin therapy 10. Mild thrombocytopenia PLAN: * Pt was on dapsone for PCP prophylaxis , spent a long time on the phone with transfer center, still no beds, spoke with case mgt * Meanwhile continue broad spectrum abx therapy here /Appreciate ID consult / Obtain sputum cultures * Continue bronchodilator therapy / supplemental O2 / gentle lasix diuresis * Continue all antirejection meds * Continue INR monitoring and coumadin mgt while closely watching platelet count * Start low dose ACEi for BP control * Diabetic diet / SSI * Consider CT chest. * GI / Hepatobiliary consult to aid in monitoring liver function. * Supportive care Gastrointestinal prophylaxis, proton pump inhibitor. Deep venous thrombosis prophylaxis: Coumadin Subjective 24 Hr Interval Summary Free Text/Dictation looks better states he's constipated with abd discomfort Exam/Review of Systems Vital Signs Vitals Vital Signs Date Time Temp Pulse Resp B/P Pulse Ox O2 Delivery O2 Flow Rate FiO2 01/14/17 09:45 100 142/63 01/14/17 08:18 97.6 19 92 01/14/17 08:02 6.0 01/14/17 08:02 Nasal Cannula 01/12/17 13:38 50 Intake and Output 01/13/17 01/13/17 01/14/17 15:00 23:00 07:00 Intake Total 975 ml 925 ml Output Total 1220 ml 150 ml Balance -245 ml 775 ml Exam Constitutional: alert, obese, oriented, other (still ill looking) Psych: anxiety Head: normocephalic Eyes: PERRL Neck: supple, No jvd Respiratory: congested cough, diminished breath sounds Cardiovascular: murmurs/extra sounds (?), regular rate and rhythm Gastrointestinal: bowel sounds, non-tender, soft, surgical scars (healed) Extremities: No edema Neurological: lethargic, nl mental status, nl speech Results Result Diagram: 01/14/1773201/14/1733 Results 24 hrs Laboratory Tests Test 01/13/17 17:13 01/13/17 21:18 01/14/17 07:33 01/14/17 07:55 Bedside Glucose 277 H 160 168 Anion Gap 12 Basophils # 0.0 Basophils % 0.3 Blood Urea Nitrogen 27 H Calcium Level 8.2 L Carbon Dioxide Level 32 H Chloride Level 94 L Creatinine 1.07 Eosinophils # 0.2 Eosinophils % 2.4 Glucose Level 164 Hematocrit 36.0 L Hemoglobin 11.1 L INR International Normalized Ratio 3.18 Lymphocytes # 0.3 L Lymphocytes % 3.6 L Mean Corpuscular Hemoglobin 26.4 L Mean Corpuscular Hemoglobin Concent 30.8 L Mean Corpuscular Volume 85.5 Mean Platelet Volume 9.9 Monocytes # 0.8 Monocytes % 10.9 Neutrophils # 5.8 Neutrophils % 81.3 H Nucleated Red Blood Cells # 0.0 Nucleated Red Blood Cells % 0.0 Platelet Count 133 L Potassium Level 3.6 Prothrombin Time 33.1 H Prothrombin Time Ratio 2.6 Red Blood Count 4.21 L Red Cell Distribution Width 16.8 H Sodium Level 134 L White Blood Count 7.1 Medications Medications Current Medications Ondansetron HCl (Zofran Inj) 4 mg Q6H PRN IV NAUSEA AND/OR VOMITING; Start at 06:30 Acetaminophen (Tylenol Tab) 650 mg Q6H PRN PO PAIN LEVEL 1-3 OR FEVER; Start at 06:30 Acetaminophen/ Hydrocodone Bitart ([place] (5/325)) 1 tab Q6H PRN PO MODERATE PAIN LEVEL 4-6; Start 01/12/17 at 06:30 Morphine Sulfate (morphine) 2 mg Q4H PRN IV SEVERE PAIN LEVEL 7-10; Start 01/12 at 06:30 Docusate Sodium (Colace) 100 mg Q12H PRN PO CONSTIPATION Last administered on 05:35; Admin Dose 100 MG; Start 01/12/17 at 06:30 Magnesium Hydroxide (Milk Of Mag) 30 ml DAILY PRN PO CONSTIPATION; Start at 06:30 Sodium Biphosphate/ Sodium Phosphate (Fleet Enema) 133 ml DAILY PRN [place] CONSTIPATION; Start 01/12/17 at 06:30 Pantoprazole 40 mg 40 mg DAILY@06 IV Last administered on 01/14/17 05:35; Admin Dose 40 MG; Start 01/13/17 at 06:00 Sodium Chloride (1/2 NS) 1,000 ml @ 75 mls/hr [id number] IV Last administered on 01/14/17 00:09; Admin Dose 75 MLS/HR; Start 01/12/17 at 06:08 Lorazepam 0.5 mg 0.5 mg Q6H PRN IV ANXIETY; Start 01/12/17 at 06:30 Piperacillin Sod/ Tazobactam Sod (Zosyn 3.375gm/ 100 ml (Pmx)) 100 ml @ 200 mls /hr Q6 IVPB Last administered on 01/14/17 05:35; Admin Dose 200 MLS/HR; Start 01/12/17 at 12:00 Vancomycin HCl (Vanco Iv Per Pharmacy) VANCOMYCIN PER PHARMACY NOTE XX ; Start 01/12/17 at 06:30 Hydralazine HCl (Apresoline) 10 mg Q6H PRN IV ELEVATED BLOOD PRESSURE Last administered on 01/14/17 08:01; Admin Dose 10 MG; Start 01/12/17 at 06:30 Clonidine (Catapres) 0.1 mg Q6H PRN PO ELEVATED BLOOD PRESSURE; Start 01/12/17 at 06:30 Nitroglycerin (Nitroglycerin (Sl Tab) 0.4 Mg) 1 tab Q5M PRN SL ANGINA; Start at 06:30 Atorvastatin Calcium (Lipitor) 40 mg QHS PO Last administered on 01/13/17 21: 19; Admin Dose 40 MG; Start 01/13/17 at 21:00 Cyclosporine (Neoral) 100 mg BID PO Last administered on 01/14/17 09:31; Admin Dose 100 MG; Start 01/13/17 at 09:00 Dapsone (Dapsone) 100 mg DAILY PO Last administered on 01/14/17 09:34; Admin Dose 100 MG; Start 01/13/17 at 09:00 Dutasteride (Avodart) 0.5 mg DAILY PO Last administered on 01/14/17 09:33; Admin Dose 0.5 MG; Start 01/13/17 at 09:00 Fluticasone Propionate (Flonase 0.05% Nasal) 1 spray DAILY NASAL Last administered on 01/13/17 09:13; Admin Dose 1 SPRAY; Start 01/13/17 at 09:00 Ipratropium [place] (Atrovent Hfa) 2 puff QID INH Last administered on 09:35; Admin Dose 2 PUFF; Start 01/13/17 at 09:00 Insulin Glargine (Lantus) 75 unit AM SC Last administered on 01/14/17 09:27; Admin Dose 75 UNIT; Start 01/14/17 at 09:00 Miscellaneous Information 1 puff DAILY IH ; Start 01/13/17 at 09:00; Status UNV Valganciclovir (Valcyte) 450 mg BID PO Last administered on 01/14/17 09:34; Admin Dose 450 MG; Start 01/12/17 at 23:00 Mycophenolate Mofetil (Cellcept) 1,000 mg BID PO Last administered on 09:32; Admin Dose 1,000 MG; Start 01/13/17 at 02:45 Warfarin Sodium (Coumadin) 5 mg MoFr@17 PO ; Start 01/16/17 at 17:00 Warfarin Sodium (Coumadin) 4 mg SuTuWeThSa@17 PO Last administered on 03:34; Admin Dose 4 MG; Start 01/13/17 at 17:00; Status Future Hold Miscellaneous Information (*Order Clarification Bulletin) MEDICATION REQUIRES CLARIFICATI... Q8H XX ; Start 01/13/17 at 08:30 Prednisone (Prednisone) 5 mg DAILY PO Last administered on 01/14/17 09:33; Admin Dose 5 MG; Start 01/13/17 at 11:00 Furosemide (Lasix) 40 mg DAILY IV Last administered on 01/14/17 09:29; Admin Dose 40 MG; Start 01/13/17 at 11:00 Magnesium Oxide (Mag-Ox 400) 400 mg BID PO Last administered on 01/14/17 09:33 ; Admin Dose 400 MG; Start 01/13/17 at 21:00 Diagnostic Test (Pha) (Accucheck) 1 ea 02 XX ; Start 01/14/17 at 02:00 Miscellaneous Information 1 ea NOTE XX ; Start 01/13/17 at 15:00 Glucose (Glutose) 15 gm Q15M PRN PO DECREASED GLUCOSE; Start 01/13/17 at 15:00 Glucose (Glutose) 22.5 gm Q15M PRN PO DECREASED GLUCOSE; Start 01/13/17 at 15: 00 Dextrose (D50w Syringe) 25 ml Q15M PRN IV DECREASED GLUCOSE; Start 01/13/17 at 15:00 Dextrose (D50w Syringe) 50 ml Q15M PRN IV DECREASED GLUCOSE; Start 01/13/17 at 15:00 Glucagon (Glucagen) 1 mg Q15M PRN IM DECREASED GLUCOSE; Start 01/13/17 at 15:00 Glucose (Glutose) 15 gm Q15M PRN BU[place]AL DECREASED GLUCOSE; Start 01/13/17 at 15 :00 Miscellaneous Information 1 puff 1 puff DAILY XX ; Start 01/14/17 at 09:00; Status UNV Vancomycin HCl (Vancocin) 250 ml @ 125 mls/hr Q12H IVPB Last administered on 02:44; Admin Dose 125 MLS/HR; Start 01/14/17 at 03:00 Miscellaneous Information (*Rx Drug Level Order Reminder*) VANCOMYCIN TROUGH LEVEL @ 400 ONCE ONCE XX ; Start 01/14/17 at 14:00; Stop 01/14/17 at 14:01 Procedures Procedures Echocardiogram Report Patient Name: CARLOS DAWSON Gender: Male Date: 1945 Study Date: 12-Jan-2017 Carbonation Tester: Harmony Blanco RDCS Location: [facility] Ref. Physician: BETH PATTON Quality: Adequate Procedures: Transthoracic echocardiogram with complete 2D, M-Mode, and doppler examination. Indications: Chest Pain. 2D/M Mode Doppler Measurement Value Normal Ranges Measurement Value Normal Ranges LVIDd 2D 4.8 3.5 - 5.6 cm AV Peak [place] 1.4 m/sec LVIDs 2D 3.2 2.1 - 4.1 cm AV Peak PG 7.0 mmHg FS 2D 32.6 % LVOT Peak [place] 0.9 m/sec LVPWd 2D 1.0 0.6 - 1.1 cm LVOT Peak PG 3.0 mmHg IVSd 2D 1.1 0.6 - 1.1 cm MV E Peak [place] 0.7 m/sec IVS/LVPW 2D 1.1 MV A Peak [place]jo 0.5 m/sec AoR Diam 2D 2.9 2.0 - 3.7 cm MV E/A 1.3 LA/Ao 2D 1 0 - 1 MV Decel Time 243 msec EDV 2D 109.0 cm3 MV E/A 1.3 ESV 2D 33.4 cm3 TR Peak Alejo 2.2 m/sec LA Dimen 2D 4.2 2.3 - 4.0 cm TR Peak PG 19.0 mmHg RVSP 22.0 mmHg Findings Left Ventricle: Normal left ventricular systolic function. Normal left ventricular cavity size. Normal left ventricular wall thickness. Ejection fraction is visually estimated at 55 %. Tissue Doppler/Mitral Doppler indices are within normal limits. Right Ventricle: Normal right ventricular size. Normal right ventricular systolic function. Left Atrium: There is mild enlargement of left atrium. Right Atrium: The right atrium is normal in size. Mitral Valve: Normal appearance and function of the mitral valve with trace physiologic regurgitation. Aortic Valve: Normal appearance of the aortic valve. No significant aortic stenosis or insufficiency. Tricuspid Valve: Normal appearance of the tricuspid valve. Estimated peak PA systolic pressure 22 mmHg. There is trace tricuspid regurgitation. Pulmonic Valve: Pulmonic valve not well visualized. Pericardium: Normal pericardium with no significant pericardial effusion. Aorta: Normal aortic root. IVC: Normal size and normal respiratory collapse consistent with normal right atrial pressure. Conclusions 1. Normal left ventricular systolic function. Normal left ventricular cavity size. Normal left ventricular wall thickness. Ejection fraction is visually estimated at 55 %. Tissue Doppler/Mitral Doppler indices are within normal limits. 2. There is mild enlargement of left atrium. 3. Normal appearance and function of the mitral valve with trace physiologic regurgitation. 4. Normal appearance of the tricuspid valve. Estimated peak PA systolic pressure 22 mmHg. There is trace tricuspid regurgitation. Electronically Signed By: Nicolas Barrera 12-Jan-2017 18:17:25 -0700 Patient Name: CARLOS DAWSON Study Date: 12-Jan-[id number] FRANSISCO CAM Jan 14, 2017 10:27
--- NOTE | 2017-01-14 10:55 | CONS ---
Date/Time of Note Date/Time of Note DATE: 01/14/17 TIME: 10:44 Consult Date/Type/Reason Admit Date/Time Jan 12, 2017 at 05:55 Initial Consult Date Type of Consultation: pulmonary Subjective Remains awake alert and oriented. Hypoxemia somewhat improved. Currently on 6 L nasal cannula Still has significant shortness of breath on minimal exertion. Objective Vital Signs Date Time Temp Pulse Resp B/P Pulse Ox O2 Delivery O2 Flow Rate FiO2 01/14/17 09:45 100 142/63 01/14/17 08:18 97.6 19 92 01/14/17 08:02 6.0 01/14/17 08:02 Nasal Cannula 01/12/17 13:38 50 Intake and Output 01/13/17 01/13/17 01/14/17 15:00 23:00 07:00 Intake Total 975 ml 925 ml Output Total 1220 ml 150 ml Balance -245 ml 775 ml Exam GENERAL: Elderly gentleman awake alert oriented talking full complete sentences VITAL SIGNS: per chart NECK: Supple. No JVD or lymphadenopathy. CARDIAC EXAM: S1, S2. No added sounds or murmurs. CHEST: Extensive bilateral expiratory wheezes. ABDOMEN: Soft, nontender. No guarding or rebound. EXTREMITIES: No cyanosis, clubbing or edema. NEUROLOGIC: Generalized weakness. No focal deficits. Results/Medications Result Diagram: 01/14/17 0733 01/14/17 0733 Results 24 hrs Laboratory Tests Test 01/13/17 17:13 01/13/17 21:18 01/14/17 07:33 01/14/17 07:55 Bedside Glucose 277 H 160 168 Anion Gap 12 Basophils # 0.0 Basophils % 0.3 Blood Urea Nitrogen 27 H Calcium Level 8.2 L Carbon Dioxide Level 32 H Chloride Level 94 L Creatinine 1.07 Eosinophils # 0.2 Eosinophils % 2.4 Glucose Level 164 Hematocrit 36.0 L Hemoglobin 11.1 L INR International Normalized Ratio 3.18 Lymphocytes # 0.3 L Lymphocytes % 3.6 L Mean Corpuscular Hemoglobin 26.4 L Mean Corpuscular Hemoglobin Concent 30.8 L Mean Corpuscular Volume 85.5 Mean Platelet Volume 9.9 Monocytes # 0.8 Monocytes % 10.9 Neutrophils # 5.8 Neutrophils % 81.3 H Nucleated Red Blood Cells # 0.0 Nucleated Red Blood Cells % 0.0 Platelet Count 133 L Potassium Level 3.6 Prothrombin Time 33.1 H Prothrombin Time Ratio 2.6 Red Blood Count 4.21 L Red Cell Distribution Width 16.8 H Sodium Level 134 L White Blood Count 7.1 Medications Current Medications Ondansetron HCl (Zofran Inj) 4 mg Q6H PRN IV NAUSEA AND/OR VOMITING; Start at 06:30 Acetaminophen (Tylenol Tab) 650 mg Q6H PRN PO PAIN LEVEL 1-3 OR FEVER; Start at 06:30 Acetaminophen/ Hydrocodone Bitart ([place] (5/325)) 1 tab Q6H PRN PO MODERATE PAIN LEVEL 4-6; Start 01/12/17 at 06:30 Morphine Sulfate (morphine) 2 mg Q4H PRN IV SEVERE PAIN LEVEL 7-10; Start 01/12 at 06:30 Docusate Sodium (Colace) 100 mg Q12H PRN PO CONSTIPATION Last administered on 05:35; Admin Dose 100 MG; Start 01/12/17 at 06:30 Magnesium Hydroxide (Milk Of Mag) 30 ml DAILY PRN PO CONSTIPATION; Start at 06:30 Sodium Biphosphate/ Sodium Phosphate (Fleet Enema) 133 ml DAILY PRN [place] CONSTIPATION; Start 01/12/17 at 06:30 Pantoprazole 40 mg 40 mg DAILY@06 IV Last administered on 01/14/17 05:35; Admin Dose 40 MG; Start 01/13/17 at 06:00 Sodium Chloride (1/2 NS) 1,000 ml @ 75 mls/hr [id number] IV Last administered on 01/14/17 00:09; Admin Dose 75 MLS/HR; Start 01/12/17 at 06:08 Lorazepam 0.5 mg 0.5 mg Q6H PRN IV ANXIETY; Start 01/12/17 at 06:30 Piperacillin Sod/ Tazobactam Sod (Zosyn 3.375gm/ 100 ml (Pmx)) 100 ml @ 200 mls /hr Q6 IVPB Last administered on 01/14/17 05:35; Admin Dose 200 MLS/HR; Start 01/12/17 at 12:00 Vancomycin HCl (Vanco Iv Per Pharmacy) VANCOMYCIN PER PHARMACY NOTE XX ; Start 01/12/17 at 06:30 Hydralazine HCl (Apresoline) 10 mg Q6H PRN IV ELEVATED BLOOD PRESSURE Last administered on 01/14/17 08:01; Admin Dose 10 MG; Start 01/12/17 at 06:30 Clonidine (Catapres) 0.1 mg Q6H PRN PO ELEVATED BLOOD PRESSURE; Start 01/12/17 at 06:30 Nitroglycerin (Nitroglycerin (Sl Tab) 0.4 Mg) 1 tab Q5M PRN SL ANGINA; Start at 06:30 Atorvastatin Calcium (Lipitor) 40 mg QHS PO Last administered on 01/13/17 21: 19; Admin Dose 40 MG; Start 01/13/17 at 21:00 Cyclosporine (Neoral) 100 mg BID PO Last administered on 01/14/17 09:31; Admin Dose 100 MG; Start 01/13/17 at 09:00 Dapsone (Dapsone) 100 mg DAILY PO Last administered on 01/14/17 09:34; Admin Dose 100 MG; Start 01/13/17 at 09:00 Dutasteride (Avodart) 0.5 mg DAILY PO Last administered on 01/14/17 09:33; Admin Dose 0.5 MG; Start 01/13/17 at 09:00 Fluticasone Propionate (Flonase 0.05% Nasal) 1 spray DAILY NASAL Last administered on 01/13/17 09:13; Admin Dose 1 SPRAY; Start 01/13/17 at 09:00 Ipratropium [place] (Atrovent Hfa) 2 puff QID INH Last administered on 09:35; Admin Dose 2 PUFF; Start 01/13/17 at 09:00 Insulin Glargine (Lantus) 75 unit AM SC Last administered on 01/14/17 09:27; Admin Dose 75 UNIT; Start 01/14/17 at 09:00 Miscellaneous Information 1 puff DAILY IH ; Start 01/13/17 at 09:00; Status UNV Valganciclovir (Valcyte) 450 mg BID PO Last administered on 01/14/17 09:34; Admin Dose 450 MG; Start 01/12/17 at 23:00 Mycophenolate Mofetil (Cellcept) 1,000 mg BID PO Last administered on 09:32; Admin Dose 1,000 MG; Start 01/13/17 at 02:45 Miscellaneous Information (*Order Clarification Bulletin) MEDICATION REQUIRES CLARIFICATI... Q8H XX ; Start 01/13/17 at 08:30 Prednisone (Prednisone) 5 mg DAILY PO Last administered on 01/14/17 09:33; Admin Dose 5 MG; Start 01/13/17 at 11:00 Furosemide (Lasix) 40 mg DAILY IV Last administered on 01/14/17 09:29; Admin Dose 40 MG; Start 01/13/17 at 11:00 Magnesium Oxide (Mag-Ox 400) 400 mg BID PO Last administered on 01/14/17 09:33 ; Admin Dose 400 MG; Start 01/13/17 at 21:00 Diagnostic Test (Pha) (Accucheck) 1 ea 02 XX ; Start 01/14/17 at 02:00 Miscellaneous Information 1 ea NOTE XX ; Start 01/13/17 at 15:00 Glucose (Glutose) 15 gm Q15M PRN PO DECREASED GLUCOSE; Start 01/13/17 at 15:00 Glucose (Glutose) 22.5 gm Q15M PRN PO DECREASED GLUCOSE; Start 01/13/17 at 15: 00 Dextrose (D50w Syringe) 25 ml Q15M PRN IV DECREASED GLUCOSE; Start 01/13/17 at 15:00 Dextrose (D50w Syringe) 50 ml Q15M PRN IV DECREASED GLUCOSE; Start 01/13/17 at 15:00 Glucagon (Glucagen) 1 mg Q15M PRN IM DECREASED GLUCOSE; Start 01/13/17 at 15:00 Glucose (Glutose) 15 gm Q15M PRN BUCCAL DECREASED GLUCOSE; Start 01/13/17 at 15 :00 Miscellaneous Information 1 puff 1 puff DAILY XX ; Start 01/14/17 at 09:00; Status UNV Vancomycin HCl (Vancocin) 250 ml @ 125 mls/hr Q12H IVPB Last administered on 02:44; Admin Dose 125 MLS/HR; Start 01/14/17 at 03:00 Miscellaneous Information (*Rx Drug Level Order Reminder*) VANCOMYCIN TROUGH LEVEL @ 400 ONCE ONCE XX ; Start 01/14/17 at 14:00; Stop 01/14/17 at 14:01 Warfarin Sodium (Coumadin) 3 mg SuTuWeThSa@17 PO ; Start 01/14/17 at 17:00; Status UNV Warfarin Sodium (Coumadin) 4 mg MoFr@17 PO ; Start 01/16/17 at 17:00; Status UNV Assessment/Plan Chief Complaint/Hosp Course Assessment 1. Likely community acquired pneumonia. Differential does include opportunistic infection. 2. Significant hypoxemia with possible component of tracheobronchitis and bronchospasm. 3. Possible mild congestive cardiac failure. 4. 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 Contact individual is catalino Cornell [phone] PLAN: 1. Continue antirejection medications. 2. Continue broad-spectrum antibiotics, currently on Valcyte, Zosyn and vancomycin. ID recommendations 3. Continue Lasix for possible component of mild failure. 4. Liaise with liver transplant team. I have attempted to contact transplant team regarding increasing steroids for possible bronchospasm> will discuss with tranplant team. re iv steroids. 5. Pending transfer back to [facility] for continuing care. 6. GI consult. Problems: AMY BERRY MD, [facility] [place] Jan 14, 2017 10:55
[2017-01-14 11:06] LABS: ALBUMIN 2.9 g/dl (3.3-4.9)
[2017-01-14 11:09] LABS: TOTAL PROTEIN 5.9 g/dl (6.1-8.1)
--- NOTE | 2017-01-14 12:23 | EN ---
Date/Time of Note Date/Time of Note DATE: 01/14/17 TIME: 12:22 Event Note Medicine Medicine Event Note Case was discussed with liver transplant unit at [facility] Patient is still pending transfer once a bed is available I discussed the need for intravenous steroids which was cleared by liver transplant team at [facility] We will switch from by mouth prednisone to IV Solu-Medrol AMY BERRY MD, [facility] Jan 14, 2017 12:23
[2017-01-14] MEDS ORDERED: BISACODYL (EC) 5 MG TAB PO ONE (12:30)
[2017-01-14] MEDS: FLUTICASONE 0.05% 16 GM NAS SPRAY NASAL SCH (12:35)
[2017-01-14] MEDS: LISINOPRIL 20 MG TAB PO SCH (12:38)
--- NOTE | 2017-01-14 14:16 | PN ---
DATE: 01/14/2017 SUBJECTIVE: No acute changes. No fevers. The patient is alert, wants to go to the bathroom, awaiting for the nurse to disconnect him from IV. Denies pain , discomfort. No fevers. VITAL SIGNS: Temperature 98.6, pulse 97, respirations 18, blood pressure 142/63 , saturation 93 on nasal cannula. WBC 7.1, H and H 11.1 and 36, platelets 133, neutrophils 81.3, BUN 27, creatinine 1.07. MICROBIOLOGY: Cultures have been negative. DIAGNOSTICS: Chest x-ray from yesterday revealed increase in patchy right basilar infiltrates. ANTIMICROBIALS: The patient is on vancomycin and Zosyn. He is also on Valcyte. PHYSICAL EXAMINATION: GENERAL: This is a well-developed elderly man who is alert, in no distress. HEENT: Head atraumatic, normocephalic. Sclerae anicteric. Buccal mucosa dry. NECK: Supple, trachea midline. CHEST: Rise symmetrical. Breath sounds diminished to bases. HEART: S1, S2. ABDOMEN: Soft, bowel tones present. EXTREMITIES: No cyanosis. ASSESSMENT: 1. Sepsis with fevers on admission. 2. Pneumonia, likely community acquired, r/o opportunistic. 3. Hypoxemic respiratory failure. 4. History of primary biliary cirrhosis, status post liver transplant in 1989, on immunosuppressive therapy. 5. Diabetes mellitus. PLAN: The patient remains stable. He is awaiting for [facility] bed to be transferred there. He is being followed by pulmonary team. The patient also is on dapsone for PCP prophylaxis. Dictated By: CHRISTINA LOTT TRAFFIC SIGNAL SUPERVISOR MAINTENANCE for DANAY SOTELO/HILARIO Conf#: [id number] DID#: [id number] MTDD
[2017-01-14] MEDS ORDERED: MAGNESIUM CITRATE 300 ML BTL PO ONE (14:30)
[2017-01-14] MEDS ORDERED: morphine 2 MG INJ IV PRN (14:30)
--- NOTE | 2017-01-14 14:36 | RADRPT ---
PROCEDURE: XR Chest. CLINICAL INDICATION: Shortness of breath. TECHNIQUE: Single frontal view. COMPARISON: 01/13/2017. FINDINGS: There is elevation of the right hemidiaphragm, unchanged. Mild air space disease at the lung bases with right worse than left is unchanged. The lungs are otherwise clear. The heart size is normal. There may be a small bilateral pleural effusions. There is no pneumothorax. IMPRESSION: 1. No significant change from 01/13/2017. RPTAT: QQ .Rey Dawson MD, MD Date Time Electronically viewed and signed by .Rey Dawson MD, MD on 01/14/2017 14:36 .R/
[2017-01-14] MEDS: METHYLPREDNISOLONE 40 MG INJ IV SCH ×2 (14:54→21:16)
[2017-01-14] MEDS ORDERED: WARFARIN 3 MG TAB PO SCH (17:00)
[2017-01-14 19:36] LABS: ADD UMIC YES; URINE BILIRUBIN (Dip) NEGATIVE (NEGATIVE); URINE BLOOD (Dip) 3+ (NEGATIVE); URINE COLOR LT. YELLOW (YELLOW); URINE KETONES (Dip) NEGATIVE (NEGATIVE); URINE LEUKOCYTE ESTERASE (Dip) NEGATIVE (NEGATIVE); URINE NITRITE (Dip) NEGATIVE (NEGATIVE); URINE TOTAL PROTEIN (Dip) NEGATIVE (NEGATIVE); URINE UROBILINOGEN (Dip) 0.2 E.U./dL (0.1-1.0)
[2017-01-14 20:04] LABS: BACTERIA,URINE FEW; URINE RBCS >200 /HPF ([, 0])
[2017-01-14] MEDS: ATORVASTATIN 40 MG TAB PO SCH (21:15)
[2017-01-15] VITALS (12 sets, daily range): BP systolic 135–198; BP diastolic 60–88; PULSE 80–106; RESP 17–20
[2017-01-15] MEDS ORDERED: TAMSULOSIN (SR) 0.4 MG CAP PO SCH (00:30)
[2017-01-15] MEDS: [UNRECOGNIZED DRUG - REMARK] XX SCH ×2 (00:30→08:14)
[2017-01-15] MEDS: ACCU-CHEK XX SCH (02:00)
[2017-01-15] MEDS: SOD CHLORIDE 0.45% 1,000 ML IV SCH (03:01)
[2017-01-15] MEDS: VANCOMYCIN 1 GM in NS 250 ML IVPB SCH ×2 (03:31→16:10)
[2017-01-15] MEDS: PANTOPRAZOLE 40 MG INJ IV SCH (05:33)
[2017-01-15] MEDS: METHYLPREDNISOLONE 40 MG INJ IV SCH ×3 (05:33→21:22)
[2017-01-15] MEDS: PIPER-TAZO 3.375 GM IV (PMX) 100 ML IVPB SCH ×4 (05:34→23:10)
[2017-01-15 07:45] LABS: MAGNESIUM 2.1 mg/dl (1.7-2.5); PHOSPHORUS 3.6 mg/dl (2.5-4.9)
[2017-01-15 07:51] LABS: INR 3.32; PROTIME 34.2 Sec (12.2-14.2); PT RATIO 2.7
[2017-01-15 07:52] LABS: ADD SCAN DIFF NO
[2017-01-15 07:55] LABS: ABNORMAL IP MESSAGE 1; BASOPHILS % 0.2 % (0.0-2.0); HEMATOCRIT 38.8 % (42.0-52.0); HEMOGLOBIN 12.3 g/dl (14.0-18.0); LYMPHOCYTES # 0.2 10^3/ul (0.8-2.9); LYMPHOCYTES % 2.7 % (15.0-51.0); MEAN CORPUSCULAR HGB CONC 31.7 g/dl (32.0-37.0); MEAN CORPUSCULAR VOLUME 85.1 fl (82.0-101.0); MEAN PLATELET VOLUME 9.4 fl (7.4-10.4); MONOCYTE # 0.1 10^3/ul (0.3-0.9); MONOCYTES % 1.9 % (0.0-11.0); NEUTROPHIL # 5.3 10^3/ul (1.6-7.5); NEUTROPHILS % 92.9 % (39.0-77.0); PLATELET COUNT 167 10^3/UL (140-415); RED BLOOD COUNT 4.56 10^6/ul (4.70-6.10); RED CELL DISTRIBUTION WIDTH 16.7 % (11.5-14.5); WHITE BLOOD COUNT 5.7 10^3/ul (4.8-10.8)
[2017-01-15] MEDS: ALBUTEROL/IPRATROPIUM (NEB) 3 ML AMP HHN SCH ×3 (08:00→20:00)
[2017-01-15] MEDS: CYCLOSPORINE MICROEMULS 100 MG CAP PO SCH ×2 (08:07→20:23)
[2017-01-15] MEDS: VALGANCICLOVIR 450 MG TAB PO SCH ×2 (08:07→20:23)
[2017-01-15] MEDS: MAGNESIUM OXIDE 400 MG TAB PO SCH ×2 (08:07→20:24)
[2017-01-15] MEDS: DUTASTERIDE 0.5 MG CAP PO SCH (08:07)
[2017-01-15] MEDS: DAPSONE 100 MG TAB PO SCH (08:07)
[2017-01-15] MEDS: LISINOPRIL 20 MG TAB PO SCH (08:08)
[2017-01-15] MEDS: FUROSEMIDE 20 MG INJ IV SCH (08:08)
[2017-01-15] MEDS: MYCOPHENOLATE 250 MG CAP PO SCH ×2 (08:08→20:23)
[2017-01-15] MEDS: INSULIN ASPART [NOVOLOG] 3 ML PEN SC SCH ×7 (08:12→20:27)
[2017-01-15] MEDS: FLUTICASONE 0.05% 16 GM NAS SPRAY NASAL SCH (08:13)
[2017-01-15] MEDS: INSULIN GLARGINE [LANtus] 3 ML PEN SC SCH (08:13)
[2017-01-15] MEDS: IPRATROPIUM (HFA) 12.9 GM INHALER INH SCH ×4 (08:14→20:42)
[2017-01-15 09:01] LABS: POTASSIUM 4.3 mmol/L (3.5-5.1)
[2017-01-15 09:04] LABS: CREATININE 1.22 mg/dl (0.61-1.24)
[2017-01-15] MEDS: NYSTATIN SUSP 5 ML CUP PO SCH ×3 (13:42→20:24)
[2017-01-15] MEDS: FLUCONAZOLE 100 MG TAB PO SCH (13:42)
--- NOTE | 2017-01-15 14:07 | CONS ---
Date/Time of Note Date/Time of Note DATE: 01/15/17 TIME: 14:05 Assessment/Plan Assessment/Plan Additional Assessment/Plan Assessment recommendations; 1. Patient admitted with bilateral pneumonia with significant clinical improvement. 2. History of liver transplant, on chronic immunosuppression. 3. History of diabetes and hypertension. Continue current treatment. Consultation Date/Type/Reason Admit Date/Time Jan 12, 2017 at 05:55 Initial Consult Date Type of Consultation: pulmonary 24 HR Interval Summary Free Text/Dictation Patient condition is markedly improved. He is reporting significant reduction of wheezing, shortness of breath is markedly improved. Still complains of cough with scant sputum production. Denies any fever chills chest pain. Any sinus symptoms. General exam; elderly male, currently in no distress. Awake and alert. Exam/Review of Systems Vital Signs Vitals Vital Signs Date Time Temp Pulse Resp B/P Pulse Ox O2 Delivery O2 Flow Rate FiO2 01/15/17 12:25 97 01/15/17 11:53 98.6 20 198/88 93 01/15/17 09:48 Nasal Cannula 01/15/17 08:00 6.0 01/12/17 13:38 50 Intake and Output 01/14/17 01/14/17 01/15/17 15:00 23:00 07:00 Intake Total 300 ml 1375 ml 2501 ml Output Total 850 ml 1100 ml 1100 ml Balance -550 ml 275 ml 1401 ml Exam HEENT exam; supple neck, no JVD. No lymphadenopathy. Midline trachea. No thyromegaly. Pharynx clear. Patient has fair dentition. Chest examination of Devendra diminished breath sound bilaterally with bilateral scattered crackles. S1-S2 audible, no murmurs. Regular rhythm. Abdomen is soft, nondistended. No organomegaly. Bowel sounds audible. There are multiple healed upper quadrant scars. Extremity exam; no peripheral edema. No clubbing. Pulses 1+ bilaterally. FOUNDRY FINISHER examination; no focal deficit. Results Result Diagram: 01/15/17 0650 01/15/17 0650 Results 24 hrs Laboratory Tests Test 01/14/17 14:06 01/14/17 17:10 01/14/17 21:27 01/15/17 06:50 Vancomycin Level Trough 12.1 Bedside Glucose 128 70 White Blood Count 5.7 Red Blood Count 4.56 L Hemoglobin 12.3 L Hematocrit 38.8 L Mean Corpuscular Volume 85.1 Mean Corpuscular Hemoglobin 27.0 L Mean Corpuscular Hemoglobin Concent 31.7 L Red Cell Distribution Width 16.7 H Platelet Count 167 # Mean Platelet Volume 9.4 Neutrophils % 92.9 H Lymphocytes % 2.7 L Monocytes % 1.9 Eosinophils % 0.0 Basophils % 0.2 Nucleated Red Blood Cells % 0.0 Neutrophils # 5.3 Lymphocytes # 0.2 L Monocytes # 0.1 L Eosinophils # 0.0 Basophils # 0.0 Nucleated Red Blood Cells # 0.0 Prothrombin Time 34.2 H Prothrombin Time Ratio 2.7 INR International Normalized Ratio 3.32 Sodium Level 141 Potassium Level 4.3 Chloride Level 97 Carbon Dioxide Level 30 Anion Gap 18 H Blood Urea Nitrogen 27 H Creatinine 1.22 Glucose Level 230 H Calcium Level 9.0 Phosphorus Level 3.6 Magnesium Level 2.1 Test 01/15/17 07:56 01/15/17 11:55 Bedside Glucose 268 H 249 H Medications Medications Current Medications Ondansetron HCl (Zofran Inj) 4 mg Q6H PRN IV NAUSEA AND/OR VOMITING; Start at 06:30 Acetaminophen (Tylenol Tab) 650 mg Q6H PRN PO PAIN LEVEL 1-3 OR FEVER; Start at 06:30 Acetaminophen/ Hydrocodone Bitart ([place] (5/325)) 1 tab Q6H PRN PO MODERATE PAIN LEVEL 4-6; Start 01/12/17 at 06:30 Morphine Sulfate (morphine) 2 mg Q4H PRN IV SEVERE PAIN LEVEL 7-10 Last administered on 01/14/17 14:55; Admin Dose 2 MG; Start 01/12/17 at 06:30 Docusate Sodium (Colace) 100 mg Q12H PRN PO CONSTIPATION Last administered on 05:35; Admin Dose 100 MG; Start 01/12/17 at 06:30 Magnesium Hydroxide (Milk Of Mag) 30 ml DAILY PRN PO CONSTIPATION; Start at 06:30 Sodium Biphosphate/ Sodium Phosphate (Fleet Enema) 133 ml DAILY PRN [place] CONSTIPATION; Start 01/12/17 at 06:30 Pantoprazole 40 mg 40 mg DAILY@06 IV Last administered on 01/15/17 05:33; Admin Dose 40 MG; Start 01/13/17 at 06:00 Sodium Chloride (1/2 NS) 1,000 ml @ 30 mls/hr Q24H IV Last administered on 03:01; Admin Dose 30 MLS/HR; Start 01/12/17 at 06:08 Lorazepam 0.5 mg 0.5 mg Q6H PRN IV ANXIETY; Start 01/12/17 at 06:30 Piperacillin Sod/ Tazobactam Sod (Zosyn 3.375gm/ 100 ml (Pmx)) 100 ml @ 200 mls /hr Q6 IVPB Last administered on 01/15/17 12:08; Admin Dose 200 MLS/HR; Start 01/12/17 at 12:00 Vancomycin HCl (Vanco Iv Per Pharmacy) VANCOMYCIN PER PHARMACY NOTE XX ; Start 01/12/17 at 06:30 Hydralazine HCl (Apresoline) 10 mg Q6H PRN IV ELEVATED BLOOD PRESSURE Last administered on 01/14/17 08:01; Admin Dose 10 MG; Start 01/12/17 at 06:30 Clonidine (Catapres) 0.1 mg Q6H PRN PO ELEVATED BLOOD PRESSURE; Start 01/12/17 at 06:30 Nitroglycerin (Nitroglycerin (Sl Tab) 0.4 Mg) 1 tab Q5M PRN SL ANGINA; Start at 06:30 Atorvastatin Calcium (Lipitor) 40 mg QHS PO Last administered on 01/14/17 21: 15; Admin Dose 40 MG; Start 01/13/17 at 21:00 Cyclosporine (Neoral) 100 mg BID PO Last administered on 01/15/17 08:07; Admin Dose 100 MG; Start 01/13/17 at 09:00 Dapsone (Dapsone) 100 mg DAILY PO Last administered on 01/15/17 08:07; Admin Dose 100 MG; Start 01/13/17 at 09:00 Dutasteride (Avodart) 0.5 mg DAILY PO Last administered on 01/15/17 08:07; Admin Dose 0.5 MG; Start 01/13/17 at 09:00 Fluticasone Propionate (Flonase 0.05% Nasal) 1 spray DAILY NASAL Last administered on 01/15/17 08:13; Admin Dose 1 SPRAY; Start 01/13/17 at 09:00 Ipratropium [place] (Atrovent Hfa) 2 puff QID INH Last administered on 13:45; Admin Dose 2 PUFF; Start 01/13/17 at 09:00 Insulin Glargine (Lantus) 75 unit AM SC Last administered on 01/15/17 08:13; Admin Dose 75 UNIT; Start 01/14/17 at 09:00 Valganciclovir (Valcyte) 450 mg BID PO Last administered on 01/15/17 08:07; Admin Dose 450 MG; Start 01/12/17 at 23:00 Mycophenolate Mofetil (Cellcept) 1,000 mg BID PO Last administered on 08:08; Admin Dose 1,000 MG; Start 01/13/17 at 02:45 Magnesium Oxide (Mag-Ox 400) 400 mg BID PO Last administered on 01/15/17 08:07 ; Admin Dose 400 MG; Start 01/13/17 at 21:00 Diagnostic Test (Pha) (Accucheck) 1 ea 02 XX ; Start 01/14/17 at 02:00 Miscellaneous Information 1 ea NOTE XX ; Start 01/13/17 at 15:00 Glucose (Glutose) 15 gm Q15M PRN PO DECREASED GLUCOSE; Start 01/13/17 at 15:00 Glucose (Glutose) 22.5 gm Q15M PRN PO DECREASED GLUCOSE; Start 01/13/17 at 15: 00 Dextrose (D50w Syringe) 25 ml Q15M PRN IV DECREASED GLUCOSE; Start 01/13/17 at 15:00 Dextrose (D50w Syringe) 50 ml Q15M PRN IV DECREASED GLUCOSE; Start 01/13/17 at 15:00 Glucagon (Glucagen) 1 mg Q15M PRN IM DECREASED GLUCOSE; Start 01/13/17 at 15:00 Glucose 15 gm 15 gm Q15M PRN BUCCAL DECREASED GLUCOSE; Start 01/13/17 at 15:00 Vancomycin HCl (Vancocin) 250 ml @ 125 mls/hr Q12H IVPB Last administered on 03:31; Admin Dose 125 MLS/HR; Start 01/14/17 at 03:00 Warfarin Sodium (Coumadin) 3 mg SuTuWeThSa@17 PO Last administered on 18:17; Admin Dose 3 MG; Start 01/14/17 at 17:00 Warfarin Sodium (Coumadin) 4 mg MoFr@17 PO ; Start 01/16/17 at 17:00 Lisinopril (Zestril) 40 mg DAILY PO Last administered on 01/15/17 08:08; Admin Dose 40 MG; Start 01/14/17 at 11:00 Furosemide (Lasix) 20 mg DAILY IV Last administered on 01/15/17 08:08; Admin Dose 20 MG; Start 01/15/17 at 09:00 Methylprednisolone Sodium Succinate (Solu-Medrol) 40 mg Q8 IV Last administered on 01/15/17 13:43; Admin Dose 40 MG; Start 01/14/17 at 14:00 Fluconazole (Diflucan) 100 mg DAILY PO Last administered on 01/15/17 13:42; Admin Dose 100 MG; Start 01/15/17 at 12:00 Nystatin (Nystatin Susp) 5 ml QID PO Last administered on 01/15/17 13:42; Admin Dose 5 ML; Start 01/15/17 at 13:00 Salmeterol Xinafoate/ Fluticasone (Advair 250/50 Diskus) 1 inh BID INH ; Start 01/15/17 at 14:30 Tiotropium [place] (Spiriva) 1 inh DAILY INH ; Start 01/15/17 at 14:30 SAMAN MURRAY Jan 15, 2017 14:06
--- NOTE | 2017-01-15 14:08 | CONS ---
Date/Time of Note Date/Time of Note DATE: 01/15/17 TIME: 14:01 Assessment/Plan Assessment/Plan Chief Complaint/Hosp Course SUBJECTIVE: C/o urinary retention, difficulty with urination, s/p straight cath by staff. No fevers. MICROBIOLOGY: Sputum cx + GNR/C albicans. ANTIMICROBIALS: The patient is on vancomycin, Zosyn, Dapsone and Valcyte. PHYSICAL EXAMINATION: GENERAL: This is a well-developed elderly man who is alert, in no distress. HEENT: Head atraumatic, normocephalic. Sclerae anicteric. Buccal mucosa dry. NECK: Supple, trachea midline. CHEST: Rise symmetrical. Breath sounds diminished to bases. HEART: S1, S2. ABDOMEN: Soft, bowel tones present. EXTREMITIES: No cyanosis. ASSESSMENT: 1. Sepsis with fevers on admission. 2. Pneumonia, likely community acquired, r/o opportunistic. 3. Hypoxemic respiratory failure. 4. History of primary biliary cirrhosis, status post liver transplant in 1989, on immunosuppressive therapy. 5. Diabetes mellitus. 6. Urinary retention PLAN: Clinically stable, will add Diflucan and oral Nystatin, await for final cx, consider urology eval. Pt is awaiting for [facility] bed. He is being followed by pulmonary team. DW /pt at bedside RANDI Ceballos Problems: Consultation Date/Type/Reason Admit Date/Time Jan 12, 2017 at 05:55 Initial Consult Date Type of Consultation: id Exam/Review of Systems Vital Signs Vitals Vital Signs Date Time Temp Pulse Resp B/P Pulse Ox O2 Delivery O2 Flow Rate FiO2 01/15/17 12:25 97 01/15/17 11:53 98.6 20 198/88 93 01/15/17 09:48 Nasal Cannula 01/15/17 08:00 6.0 01/12/17 13:38 50 Intake and Output 01/14/17 01/14/17 01/15/17 15:00 23:00 07:00 Intake Total 300 ml 1375 ml 2501 ml Output Total 850 ml 1100 ml 1100 ml Balance -550 ml 275 ml 1401 ml Results Result Diagram: 01/15/17 0650 01/15/17 0650 Results 24 hrs Laboratory Tests Test 01/14/17 14:06 01/14/17 17:10 01/14/17 21:27 01/15/17 06:50 Vancomycin Level Trough 12.1 Bedside Glucose 128 70 White Blood Count 5.7 Red Blood Count 4.56 L Hemoglobin 12.3 L Hematocrit 38.8 L Mean Corpuscular Volume 85.1 Mean Corpuscular Hemoglobin 27.0 L Mean Corpuscular Hemoglobin Concent 31.7 L Red Cell Distribution Width 16.7 H Platelet Count 167 # Mean Platelet Volume 9.4 Neutrophils % 92.9 H Lymphocytes % 2.7 L Monocytes % 1.9 Eosinophils % 0.0 Basophils % 0.2 Nucleated Red Blood Cells % 0.0 Neutrophils # 5.3 Lymphocytes # 0.2 L Monocytes # 0.1 L Eosinophils # 0.0 Basophils # 0.0 Nucleated Red Blood Cells # 0.0 Prothrombin Time 34.2 H Prothrombin Time Ratio 2.7 INR International Normalized Ratio 3.32 Sodium Level 141 Potassium Level 4.3 Chloride Level 97 Carbon Dioxide Level 30 Anion Gap 18 H Blood Urea Nitrogen 27 H Creatinine 1.22 Glucose Level 230 H Calcium Level 9.0 Phosphorus Level 3.6 Magnesium Level 2.1 Test 01/15/17 07:56 01/15/17 11:55 Bedside Glucose 268 H 249 H Medications Medications Current Medications Ondansetron HCl (Zofran Inj) 4 mg Q6H PRN IV NAUSEA AND/OR VOMITING; Start at 06:30 Acetaminophen (Tylenol Tab) 650 mg Q6H PRN PO PAIN LEVEL 1-3 OR FEVER; Start at 06:30 Acetaminophen/ Hydrocodone Bitart ([place] (5/325)) 1 tab Q6H PRN PO MODERATE PAIN LEVEL 4-6; Start 01/12/17 at 06:30 Morphine Sulfate (morphine) 2 mg Q4H PRN IV SEVERE PAIN LEVEL 7-10 Last administered on 01/14/17 14:55; Admin Dose 2 MG; Start 01/12/17 at 06:30 Docusate Sodium (Colace) 100 mg Q12H PRN PO CONSTIPATION Last administered on 05:35; Admin Dose 100 MG; Start 01/12/17 at 06:30 Magnesium Hydroxide (Milk Of Mag) 30 ml DAILY PRN PO CONSTIPATION; Start at 06:30 Sodium Biphosphate/ Sodium Phosphate (Fleet Enema) 133 ml DAILY PRN CO CONSTIPATION; Start 01/12/17 at 06:30 Pantoprazole 40 mg 40 mg DAILY@06 IV Last administered on 01/15/17 05:33; Admin Dose 40 MG; Start 01/13/17 at 06:00 Sodium Chloride (1/2 NS) 1,000 ml @ 30 mls/hr Q24H IV Last administered on 03:01; Admin Dose 30 MLS/HR; Start 01/12/17 at 06:08 Lorazepam 0.5 mg 0.5 mg Q6H PRN IV ANXIETY; Start 01/12/17 at 06:30 Piperacillin Sod/ Tazobactam Sod (Zosyn 3.375gm/ 100 ml (Pmx)) 100 ml @ 200 mls /hr Q6 IVPB Last administered on 01/15/17 12:08; Admin Dose 200 MLS/HR; Start 01/12/17 at 12:00 Vancomycin HCl (Vanco Iv Per Pharmacy) VANCOMYCIN PER PHARMACY NOTE XX ; Start 01/12/17 at 06:30 Hydralazine HCl (Apresoline) 10 mg Q6H PRN IV ELEVATED BLOOD PRESSURE Last administered on 01/14/17 08:01; Admin Dose 10 MG; Start 01/12/17 at 06:30 Clonidine (Catapres) 0.1 mg Q6H PRN PO ELEVATED BLOOD PRESSURE; Start 01/12/17 at 06:30 Nitroglycerin (Nitroglycerin (Sl Tab) 0.4 Mg) 1 tab Q5M PRN SL ANGINA; Start at 06:30 Atorvastatin Calcium (Lipitor) 40 mg QHS PO Last administered on 01/14/17 21: 15; Admin Dose 40 MG; Start 01/13/17 at 21:00 Cyclosporine (Neoral) 100 mg BID PO Last administered on 01/15/17 08:07; Admin Dose 100 MG; Start 01/13/17 at 09:00 Dapsone (Dapsone) 100 mg DAILY PO Last administered on 01/15/17 08:07; Admin Dose 100 MG; Start 01/13/17 at 09:00 Dutasteride (Avodart) 0.5 mg DAILY PO Last administered on 01/15/17 08:07; Admin Dose 0.5 MG; Start 01/13/17 at 09:00 Fluticasone Propionate (Flonase 0.05% Nasal) 1 spray DAILY NASAL Last administered on 01/15/17 08:13; Admin Dose 1 SPRAY; Start 01/13/17 at 09:00 Ipratropium [place] (Atrovent Hfa) 2 puff QID INH Last administered on 13:45; Admin Dose 2 PUFF; Start 01/13/17 at 09:00 Insulin Glargine (Lantus) 75 unit AM SC Last administered on 01/15/17 08:13; Admin Dose 75 UNIT; Start 01/14/17 at 09:00 Valganciclovir (Valcyte) 450 mg BID PO Last administered on 01/15/17 08:07; Admin Dose 450 MG; Start 01/12/17 at 23:00 Mycophenolate Mofetil (Cellcept) 1,000 mg BID PO Last administered on 08:08; Admin Dose 1,000 MG; Start 01/13/17 at 02:45 Magnesium Oxide (Mag-Ox 400) 400 mg BID PO Last administered on 01/15/17 08:07 ; Admin Dose 400 MG; Start 01/13/17 at 21:00 Diagnostic Test (Pha) (Accucheck) 1 ea 02 XX ; Start 01/14/17 at 02:00 Miscellaneous Information 1 ea NOTE XX ; Start 01/13/17 at 15:00 Glucose (Glutose) 15 gm Q15M PRN PO DECREASED GLUCOSE; Start 01/13/17 at 15:00 Glucose (Glutose) 22.5 gm Q15M PRN PO DECREASED GLUCOSE; Start 01/13/17 at 15: 00 Dextrose (D50w Syringe) 25 ml Q15M PRN IV DECREASED GLUCOSE; Start 01/13/17 at 15:00 Dextrose (D50w Syringe) 50 ml Q15M PRN IV DECREASED GLUCOSE; Start 01/13/17 at 15:00 Glucagon (Glucagen) 1 mg Q15M PRN IM DECREASED GLUCOSE; Start 01/13/17 at 15:00 Glucose 15 gm 15 gm Q15M PRN BUCCAL DECREASED GLUCOSE; Start 01/13/17 at 15:00 Vancomycin HCl (Vancocin) 250 ml @ 125 mls/hr Q12H IVPB Last administered on 03:31; Admin Dose 125 MLS/HR; Start 01/14/17 at 03:00 Warfarin Sodium (Coumadin) 3 mg SuTuWeThSa@17 PO Last administered on 18:17; Admin Dose 3 MG; Start 01/14/17 at 17:00 Warfarin Sodium (Coumadin) 4 mg MoFr@17 PO ; Start 01/16/17 at 17:00 Lisinopril (Zestril) 40 mg DAILY PO Last administered on 01/15/17 08:08; Admin Dose 40 MG; Start 01/14/17 at 11:00 Furosemide (Lasix) 20 mg DAILY IV Last administered on 01/15/17 08:08; Admin Dose 20 MG; Start 01/15/17 at 09:00 Methylprednisolone Sodium Succinate (Solu-Medrol) 40 mg Q8 IV Last administered on 01/15/17 13:43; Admin Dose 40 MG; Start 01/14/17 at 14:00 Fluconazole (Diflucan) 100 mg DAILY PO Last administered on 01/15/17 13:42; Admin Dose 100 MG; Start 01/15/17 at 12:00 Nystatin (Nystatin Susp) 5 ml QID PO Last administered on 01/15/17 13:42; Admin Dose 5 ML; Start 01/15/17 at 13:00 Salmeterol Xinafoate/ Fluticasone (Advair 250/50 Diskus) 1 inh BID INH ; Start 01/15/17 at 14:30 Tiotropium [place] (Spiriva) 1 inh DAILY INH ; Start 01/15/17 at 14:30 CHRISTINA LOTT NP Jan 15, 2017 14:08
[2017-01-15] MEDS: TIOTROPIUM 18 MCG CAPSULE INHA DEV INH SCH (16:10)
[2017-01-15] MEDS: SALMETEROL/FLUTICASONE 250/50 INHA INH SCH ×2 (16:11→23:09)
[2017-01-15] MEDS: ATORVASTATIN 40 MG TAB PO SCH (20:23)
[2017-01-15] MEDS: TAMSULOSIN (SR) 0.4 MG CAP PO SCH (20:23)
--- NOTE | 2017-01-15 20:24 | CONS ---
DATE OF ADMISSION: 01/12/2017 DATE OF CONSULTATION: 01/15/2017 REQUESTING PHYSICIAN: Tutu Ceballos MD HISTORY OF PRESENT ILLNESS: This is a 71-year-old male who is known to have a liver transplant done in 1989, and the patient has been following up at [facility]. The patient was admitted to the hospital f or weakness and fever. It appears he fell at home. He could not get up, and his could not get him up, so they called the ambulance, and the ambulance brought him to [facility]. Upon a dmission, he was found to have fever and hypoxemic, and he also had elevated lactic acid of 2.9, and he also had hyponatremia. The patient, after his admission, he was started on medications, and sebastián arently he has not been able to urinate and required to be catheterized already 4 times by in-and-ou t catheterization, and as he has been catheterized, his urine has been noted to be bloody and in fac t dark black color today which indicated old bleeding. The patient has been on Coumadin, and his IN R was a little bit elevated. He also does follow with a urologist here in the [place], and last time he saw him was 3 months ago. In fact, he was supposed to see him yesterday in a 3-month followup, but since he is here, he could not do that. He has been taking dutasteride, and he has not been on Flomax, and he states that he has been able to urinate well. PAST MEDICAL HISTORY: The patient also does have a history of hypertension and has been on medicati ons for that. 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 He also has total left knee replac ement. ALLERGIES: THE PATIENT HAS NO KNOWN DRUG ALLERGIES. MEDICATIONS: He is on presently include: 1. Coumadin 4 mg daily. 2. Advair 1 inhalation b.i.d. 3. Tiotropium bromide, which is Spiriva, also 1 inhalation daily. 4. Nystatin suspension 5 mL four times a day. 5. Diflucan 100 mg daily. 6. Lasix 20 mg daily. 7. Solu-Medrol 40 mg IV q.8 hours. 8. Lisinopril 40 mg daily. 9. Lantus insulin. 10. Vancomycin. 11. Atorvastatin 40 mg at bedtime. 12. Magnesium oxide 400 mg twice a day. 13. Insulin coverage. 14. Albuterol/ipratropium every 6 hours. 15. Cyclosporine 100 mg twice a day. 16. Dapsone 100 mg daily. 17. Avodart 0.5 mg daily. 18. Flonase 1 spray nasal spray daily. 19. Again, ipratropium bromide 2 puffs q.i.d. inhaler. 20. Protonix 40 mg. 21. Mycophenolate 1000 mg twice a day. 22. Valganciclovir 450 mg twice a day. 23. Albuterol 2.5 mg every 2 hours p.r.n. shortness of breath. 24. Zosyn. 25. Zofran p.r.n. 26. Tylenol p.r.n. 27. Morphine p.r.n. 28. Milk of magnesia p.r.n. 29. Fleet enema p.r.n. 30. Albuterol/ipratropium 3 mL per Respiratory Therapy p.r.n. 31. Hydralazine 10 mg p.r.n. q.6 hours. 32. Clonidine 0.1 mg p.r.n. for elevated blood pressure. 33. Nitroglycerin p.r.n. PHYSICAL EXAMINATION: GENERAL: A 71-year-old male. He weighs 98.6 kg. He is 72 inches tall. VITAL SIGNS: The temperature is 98.4, pulse is 89, respirations 19, blood pressure 166/80. ABDOMEN: A little bit obese. He does have a scar in the upper abdomen from the liver transplant. He has small umbilical hernia. 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 It was small, so they removed it. His left testicle is in the scrotum, is nor mal. EXTREMITIES: No edema. LABORATORY DATA: On admission, his CBC shows a white count of 11.9, today is 5.7. Hemoglobin was 1 3.0, now it is 12.3. His platelet count on admission was 119,000, now 167,000. On admission, his B UN was 23, creatinine 1.27, sodium was 128, potassium 3.7, chloride 88, CO2 30. The sodium today is 141, potassium 4.3, chloride 97, CO2 30, BUN 27, creatinine 1.22. The PT on admission was 27.7, IN R was 2.54, PTT was 47.7. Today, the PT is 34.2 and the INR is 3.32. The patient's urinalysis on a dmission showed more than 200 RBCs per high-power field and 3+ occult blood. Blood cultures have be en negative. His sputum culture did show Sheeba albicans and gram-negative rods. The bladder was distended and distended all the way up to the umbilicus. Therefore, I discussed wit h the patient the options of treatment. He does have urinary retention and this most likely seconda ry to the medication that he is taking for his breathing, mainly the inhalers, that's the ipratropiu m bromide/albuterol, and the patient is getting multiple doses of these medications. The options of treatment would be, since he has retention, either we put an indwelling Stevens catheter and leave it in or we continue to do the in-and-out catheterization. However, he is concerned about the bleedin g as he undergoes intermittent catheterization often and that causing bleeding as he thinks, but it looks like the bleeding may be coming even higher from his kidneys. The urine is very dark and old and probably related also, the bleeding, to his INR being elevated and the Coumadin that he is on. So the option either to do in-and-out catheterization regularly whenever the volume in the bladder i s over 500 or put a Stevens catheter and leave it in. So at the end, we decided to put a catheter and leave it in overnight and we re-evaluate in the morning. As I put the catheter, it went in without any difficulty. Initially the urine came out clear, then it turned a dark black color, old blood, and it is over 1100 mL of urine that drained. PLAN: Keep the Stevens catheter in. I also will order renal ultrasound to make sure that there is no renal pathology that may be causing the bleeding, and also I will like for him to be on Flomax to h elp with his urination once the catheter is removed, and the respiratory medications, as soon as hop efully are not needed, hopefully we could stop it so the secondary effect on the bladder will subsid e. Dictated By: KWADWO OVALLE/HILARIO Conf#: [id number] DID#: [id number]
--- NOTE | 2017-01-15 20:26 | RADRPT ---
PROCEDURE: Renal US. CLINICAL INDICATION: Gross hematuria. TECHNIQUE: Multiple sonographic images of the kidneys and urinary bladder were obtained. The imag es were reviewed on a PACS workstation. COMPARISON: No prior studies are available for comparison. FINDINGS: The right kidney measures 11.0 x 5.0 x 6.3 cm. The left kidney measures 12.2 x 4.9 x 5.7 cm. There is no solid renal mass. There is a benign cyst in the mid to upper right kidney measuring 2.8 cm. There is no hydronephrosis. There is no renal calculus. Renal parenchymal thickness and echogenicity is normal bilaterally. The perirenal regions are normal with no fluid collection or mass. There is a Stevens catheter in the urinary bladder. IMPRESSION: 1. Benign right renal cyst. 2. Stevens catheter in the bladder. 3. Otherwise normal renal ultrasound. RPTAT: QQ .Rey Dawson MD, MD Date Time Electronically viewed and signed by .Rey Dawson MD, on 01/15/2017 20:26 .R/
[2017-01-16] VITALS (13 sets, daily range): BP systolic 124–175; BP diastolic 58–79; PULSE 76–94; RESP 18–21
[2017-01-16] MEDS: ACCU-CHEK XX SCH (02:00)
[2017-01-16] MEDS: VANCOMYCIN 1 GM in NS 250 ML IVPB SCH ×2 (03:42→14:52)
[2017-01-16] MEDS: PIPER-TAZO 3.375 GM IV (PMX) 100 ML IVPB SCH ×4 (05:23→23:50)
[2017-01-16] MEDS: METHYLPREDNISOLONE 40 MG INJ IV SCH ×3 (05:23→22:07)
[2017-01-16] MEDS: PANTOPRAZOLE 40 MG INJ IV SCH (05:23)
[2017-01-16] MEDS: INSULIN ASPART [NOVOLOG] 3 ML PEN SC SCH ×7 (07:41→20:42)
[2017-01-16] MEDS: ALBUTEROL/IPRATROPIUM (NEB) 3 ML AMP HHN SCH ×3 (07:53→21:03)
[2017-01-16 08:06] LABS: INR 5.07; PROTIME 47.9 Sec (12.2-14.2); PT RATIO 3.7
[2017-01-16] MEDS: INSULIN GLARGINE [LANtus] 3 ML PEN SC SCH (08:24)
[2017-01-16] MEDS: TIOTROPIUM 18 MCG CAPSULE INHA DEV INH SCH (08:27)
[2017-01-16] MEDS: SALMETEROL/FLUTICASONE 250/50 INHA INH SCH ×2 (08:28→20:18)
[2017-01-16] MEDS: FLUTICASONE 0.05% 16 GM NAS SPRAY NASAL SCH (08:28)
[2017-01-16] MEDS: NYSTATIN SUSP 5 ML CUP PO SCH ×4 (08:29→20:19)
[2017-01-16] MEDS: LISINOPRIL 20 MG TAB PO SCH (08:29)
[2017-01-16] MEDS: IPRATROPIUM (HFA) 12.9 GM INHALER INH SCH ×4 (08:29→20:18)
[2017-01-16] MEDS: FLUCONAZOLE 100 MG TAB PO SCH (08:30)
[2017-01-16] MEDS: CYCLOSPORINE MICROEMULS 100 MG CAP PO SCH ×2 (08:30→20:21)
[2017-01-16] MEDS: MAGNESIUM OXIDE 400 MG TAB PO SCH ×2 (08:31→20:20)
[2017-01-16] MEDS: VALGANCICLOVIR 450 MG TAB PO SCH ×2 (08:31→20:21)
[2017-01-16] MEDS: MYCOPHENOLATE 250 MG CAP PO SCH ×2 (08:31→20:19)
[2017-01-16] MEDS: FUROSEMIDE 20 MG INJ IV SCH (08:32)
[2017-01-16] MEDS: DAPSONE 100 MG TAB PO SCH (08:32)
--- NOTE | 2017-01-16 08:44 | RADRPT ---
PROCEDURE: XR Chest 1 View. CLINICAL INDICATION: Shortness of breath TECHNIQUE: AP view of the chest was obtained. COMPARISON: January 14, 2017 FINDINGS: The cardiomediastinal silhouette is within normal limits. Central pulmonary vascular congestion and interstitial prominence in both lungs is unchanged. Elevation right hemidiaphragm is stable. Right basilar infiltrates and small right pleural effusion are stable. Subsegmental atelectasis is noted at the left lung base. The osseous structures are unchanged. IMPRESSION: Stable central pulmonary vascular congestion and interstitial prominence in both lungs. Elevation right hemidiaphragm. Stable right basilar infiltrates and small right pleural effusion. Subsegmental atelectasis at the left lung base. RPTAT: AA .Renato Espinoza MD, MD Date Time Electronically viewed and signed by .Renato Espinoza MD, on 01/16/2017 08:44 .P/
[2017-01-16 08:46] LABS: ADD SCAN DIFF NO
[2017-01-16 08:50] LABS: ABNORMAL IP MESSAGE 1; BASOPHILS % 0.2 % (0.0-2.0); HEMOGLOBIN 11.5 g/dl (14.0-18.0); LYMPHOCYTES # 0.1 10^3/ul (0.8-2.9); LYMPHOCYTES % 1.4 % (15.0-51.0); MEAN CORPUSCULAR HEMOGLOBIN 26.7 pg (29.0-33.0); MEAN CORPUSCULAR HGB CONC 31.1 g/dl (32.0-37.0); MEAN CORPUSCULAR VOLUME 85.8 fl (82.0-101.0); MEAN PLATELET VOLUME 9.6 fl (7.4-10.4); MONOCYTE # 0.3 10^3/ul (0.3-0.9); MONOCYTES % 3.3 % (0.0-11.0); NEUTROPHIL # 9.2 10^3/ul (1.6-7.5); NEUTROPHILS % 93.4 % (39.0-77.0); PLATELET COUNT 181 10^3/UL (140-415); RED BLOOD COUNT 4.31 10^6/ul (4.70-6.10); RED CELL DISTRIBUTION WIDTH 16.9 % (11.5-14.5); WHITE BLOOD COUNT 9.8 10^3/ul (4.8-10.8)
[2017-01-16 09:00] LABS: POTASSIUM 3.9 mmol/L (3.5-5.1)
[2017-01-16 09:02] LABS: CREATININE 1.05 mg/dl (0.61-1.24)
[2017-01-16 09:03] LABS: CALCIUM 8.3 mg/dl (8.4-10.2)
--- NOTE | 2017-01-16 10:24 | PN ---
Date/Time of Note Date/Time of Note DATE: 01/16/17 TIME: 10:23 Assessment/Plan VTE Prophylaxis VTE Prophylaxis Intervention: SCD's Lines/Catheters IV Catheter Type (from Nrs): Peripheral IV Urinary Cath still in place: Yes Reason Cath still needed: urinary retention, other (indicate) Assessment/Plan Assessment/Plan 71-year-old male coming in with hypoxia and fever and weakness with signs of sepsis with lactic acidosis, 1. Sepsis + Lactic acidosis 2/2 #2: improving 2. Acute Respiratory failure: improved, Patient still requiring high flow o2 Echo wasn't impressive with Ef 55% and no significant valvular deficit 3. Bilateral Pneumonia (Recurrent versus incompletely treated) Patient was treated for similar about 6 weeks ago Patient was discharged on Dapsone for PCP prophylaxis 4. 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 Hypertension: improved control 6. Antiphospholipid antibody syndrome + hx of DVT for which patient was on coumadin 7. Supratherapeutic INR 8. Dyslipidemia 9. BPH with Urinary retention and hematuria 9. Diabetes type 2 on insulin therapy 10. Mild thrombocytopenia 11. Oral thrush PLAN: * Will get stat ABG to ensure patient has no hypercapnia causing confusion * If symptoms persist or worsen, patient will need MRI to r/o CVA from hypoxia * Continue broad spectrum abx therapy * Continue bronchodilator therapy / supplemental O2 / gentle lasix diuresis * Continue all antirejection meds * Appreciate urology input, leave mason in for now * Continue INR monitoring and Hold Coumadin for now * Continue to titrate meds for better BP controll * Diabetic diet / SSI / Lantus . novolog * GI / Hepatobiliary consult to aid in monitoring liver function. * Begin to wean O2, PT eval * Supportive care Gastrointestinal prophylaxis, proton pump inhibitor. Deep venous thrombosis prophylaxis: SCDs / ambulation Subjective 24 Hr Interval Summary Free Text/Dictation confusion Exam/Review of Systems Vital Signs Vitals Vital Signs Date Time Temp Pulse Resp B/P Pulse Ox O2 Delivery O2 Flow Rate FiO2 01/16/17 08:26 86 01/16/17 07:56 98.3 19 175/79 96 01/16/17 07:53 21 01/16/17 07:53 6.0 01/16/17 07:46 Nasal Cannula Intake and Output 01/15/17 01/15/17 01/16/17 15:00 23:00 07:00 Intake Total 800 ml 1320 ml Output Total 1200 ml 2000 ml Balance -1200 ml 800 ml -680 ml Exam Constitutional: alert, oriented, No distress Psych: confusion (intermittent) Head: atraumatic, normocephalic Eyes: PERRL ENMT: mucosa pink and moist Neck: supple Respiratory: crackles/rales, diminished breath sounds Cardiovascular: murmurs/extra sounds, No regular rate and rhythm Gastrointestinal: bowel sounds, non-tender, soft Extremities: edema Neurological: lethargic Results Result Diagram: 01/16/1717 01/16/17716 Results 24 hrs Laboratory Tests Test 01/15/17 11:55 01/15/17 17:22 01/15/17 20:26 01/16/17 07:17 Bedside Glucose 249 H 143 159 White Blood Count 9.8 # Red Blood Count 4.31 L Hemoglobin 11.5 L Hematocrit 37.0 L Mean Corpuscular Volume 85.8 Mean Corpuscular Hemoglobin 26.7 L Mean Corpuscular Hemoglobin Concent 31.1 L Red Cell Distribution Width 16.9 H Platelet Count 181 Mean Platelet Volume 9.6 Neutrophils % 93.4 H Lymphocytes % 1.4 L Monocytes % 3.3 Eosinophils % 0.0 Basophils % 0.2 Nucleated Red Blood Cells % 0.0 Neutrophils # 9.2 H Lymphocytes # 0.1 L Monocytes # 0.3 Eosinophils # 0.0 Basophils # 0.0 Nucleated Red Blood Cells # 0.0 Prothrombin Time 47.9 #H Prothrombin Time Ratio 3.7 INR International Normalized Ratio 5.07 Sodium Level 136 Potassium Level 3.9 Chloride Level 96 L Carbon Dioxide Level 31 Anion Gap 13 Blood Urea Nitrogen 32 H Creatinine 1.05 Glucose Level 224 H Calcium Level 8.3 L Test 01/16/17 07:32 Bedside Glucose 206 Medications Medications Current Medications Ondansetron HCl (Zofran Inj) 4 mg Q6H PRN IV NAUSEA AND/OR VOMITING; Start at 06:30 Acetaminophen (Tylenol Tab) 650 mg Q6H PRN PO PAIN LEVEL 1-3 OR FEVER; Start at 06:30 Acetaminophen/ Hydrocodone Bitart ([place] (5/325)) 1 tab Q6H PRN PO MODERATE PAIN LEVEL 4-6; Start 01/12/17 at 06:30 Morphine Sulfate (morphine) 2 mg Q4H PRN IV SEVERE PAIN LEVEL 7-10 Last administered on 01/14/17 14:55; Admin Dose 2 MG; Start 01/12/17 at 06:30 Docusate Sodium (Colace) 100 mg Q12H PRN PO CONSTIPATION Last administered on 05:35; Admin Dose 100 MG; Start 01/12/17 at 06:30 Magnesium Hydroxide (Milk Of Mag) 30 ml DAILY PRN PO CONSTIPATION; Start at 06:30 Sodium Biphosphate/ Sodium Phosphate (Fleet Enema) 133 ml DAILY PRN [place] CONSTIPATION; Start 01/12/17 at 06:30 Pantoprazole 40 mg 40 mg DAILY@06 IV Last administered on 01/16/17 05:23; Admin Dose 40 MG; Start 01/13/17 at 06:00 Sodium Chloride (1/2 NS) 1,000 ml @ 30 mls/hr Q24H IV Last administered on 03:01; Admin Dose 30 MLS/HR; Start 01/12/17 at 06:08 Lorazepam 0.5 mg 0.5 mg Q6H PRN IV ANXIETY; Start 01/12/17 at 06:30 Piperacillin Sod/ Tazobactam Sod (Zosyn 3.375gm/ 100 ml (Pmx)) 100 ml @ 200 mls /hr Q6 IVPB Last administered on 01/16/17 05:23; Admin Dose 200 MLS/HR; Start 01/12/17 at 12:00 Vancomycin HCl (Vanco Iv Per Pharmacy) VANCOMYCIN PER PHARMACY NOTE XX ; Start 01/12/17 at 06:30 Hydralazine HCl (Apresoline) 10 mg Q6H PRN IV ELEVATED BLOOD PRESSURE Last administered on 01/14/17 08:01; Admin Dose 10 MG; Start 01/12/17 at 06:30 Clonidine (Catapres) 0.1 mg Q6H PRN PO ELEVATED BLOOD PRESSURE; Start 01/12/17 at 06:30 Nitroglycerin (Nitroglycerin (Sl Tab) 0.4 Mg) 1 tab Q5M PRN SL ANGINA; Start at 06:30 Atorvastatin Calcium (Lipitor) 40 mg QHS PO Last administered on 01/15/17 20: 23; Admin Dose 40 MG; Start 01/13/17 at 21:00 Cyclosporine (Neoral) 100 mg BID PO Last administered on 01/16/17 08:30; Admin Dose 100 MG; Start 01/13/17 at 09:00 Dapsone (Dapsone) 100 mg DAILY PO Last administered on 01/15/17 08:07; Admin Dose 100 MG; Start 01/13/17 at 09:00 Dutasteride (Avodart) 0.5 mg DAILY PO Last administered on 01/15/17 08:07; Admin Dose 0.5 MG; Start 01/13/17 at 09:00 Fluticasone Propionate (Flonase 0.05% Nasal) 1 spray DAILY NASAL Last administered on 01/16/17 08:28; Admin Dose 1 SPRAY; Start 01/13/17 at 09:00 Ipratropium [place] (Atrovent Hfa) 2 puff QID INH Last administered on 08:29; Admin Dose 2 PUFF; Start 01/13/17 at 09:00 Insulin Glargine (Lantus) 75 unit AM SC Last administered on 01/16/17 08:24; Admin Dose 75 UNIT; Start 01/14/17 at 09:00 Valganciclovir (Valcyte) 450 mg BID PO Last administered on 01/16/17 08:31; Admin Dose 450 MG; Start 01/12/17 at 23:00 Mycophenolate Mofetil (Cellcept) 1,000 mg BID PO Last administered on 08:31; Admin Dose 1,000 MG; Start 01/13/17 at 02:45 Magnesium Oxide (Mag-Ox 400) 400 mg BID PO Last administered on 01/16/17 08:31 ; Admin Dose 400 MG; Start 01/13/17 at 21:00 Diagnostic Test (Pha) (Accucheck) 1 ea 02 XX ; Start 01/14/17 at 02:00 Miscellaneous Information 1 ea NOTE XX ; Start 01/13/17 at 15:00 Glucose (Glutose) 15 gm Q15M PRN PO DECREASED GLUCOSE; Start 01/13/17 at 15:00 Glucose (Glutose) 22.5 gm Q15M PRN PO DECREASED GLUCOSE; Start 01/13/17 at 15: 00 Dextrose (D50w Syringe) 25 ml Q15M PRN IV DECREASED GLUCOSE; Start 01/13/17 at 15:00 Dextrose (D50w Syringe) 50 ml Q15M PRN IV DECREASED GLUCOSE; Start 01/13/17 at 15:00 Glucagon (Glucagen) 1 mg Q15M PRN IM DECREASED GLUCOSE; Start 01/13/17 at 15:00 Glucose 15 gm 15 gm Q15M PRN BUCCAL DECREASED GLUCOSE; Start 01/13/17 at 15:00 Vancomycin HCl (Vancocin) 250 ml @ 125 mls/hr Q12H IVPB Last administered on 03:42; Admin Dose 125 MLS/HR; Start 01/14/17 at 03:00 Lisinopril (Zestril) 40 mg DAILY PO Last administered on 01/16/17 08:29; Admin Dose 40 MG; Start 01/14/17 at 11:00 Furosemide (Lasix) 20 mg DAILY IV Last administered on 01/16/17 08:32; Admin Dose 20 MG; Start 01/15/17 at 09:00 Methylprednisolone Sodium Succinate (Solu-Medrol) 40 mg Q8 IV Last administered on 01/16/17 05:23; Admin Dose 40 MG; Start 01/14/17 at 14:00 Fluconazole (Diflucan) 100 mg DAILY PO Last administered on 01/16/17 08:30; Admin Dose 100 MG; Start 01/15/17 at 12:00 Nystatin (Nystatin Susp) 5 ml QID PO Last administered on 01/16/17 08:29; Admin Dose 5 ML; Start 01/15/17 at 13:00 Salmeterol Xinafoate/ Fluticasone (Advair 250/50 Diskus) 1 inh BID INH Last administered on 01/16/17 08:28; Admin Dose 1 INH; Start 01/15/17 at 14:30 Tiotropium [place] (Spiriva) 1 inh DAILY INH Last administered on 01/16/17 08: 27; Admin Dose 1 INH; Start 01/15/17 at 14:30 Tamsulosin HCl (Flomax) 0.4 mg HS PO Last administered on 01/15/17 20:23; Admin Dose 0.4 MG; Start 01/15/17 at 21:00 Procedures Procedures PROCEDURE: XR Chest 1 View. CLINICAL INDICATION: Shortness of breath TECHNIQUE: AP view of the chest was obtained. COMPARISON: January 14, 2017 FINDINGS: The cardiomediastinal silhouette is within normal limits. Central pulmonary vascular congestion and interstitial prominence in both lungs is unchanged. Elevation right hemidiaphragm is stable. Right basilar infiltrates and small right pleural effusion are stable. Subsegmental atelectasis is noted at the left lung base. The osseous structures are unchanged. IMPRESSION: Stable central pulmonary vascular congestion and interstitial prominence in both lungs. Elevation right hemidiaphragm. Stable right basilar infiltrates and small right pleural effusion. Subsegmental atelectasis at the left lung base. RPTAT: AA .Renato Espinoza MD, MD Date Time Electronically viewed and signed by .Renato Espinoza MD, MD on 01/16/2017 08:44 .P/ CC: FRANSISCO CAM BOLATITO M. Jan 16, 2017 10:24
[2017-01-16] MEDS ORDERED: PHYTONADIONE 1 MG/0.5 ML SYG SC ONE (10:30)
[2017-01-16 10:37] LABS: ALBUMIN 2.7 g/dl (3.3-4.9)
[2017-01-16 10:40] LABS: BILIRUBIN,INDIRECT 0.7 mg/dl (0-1.1); BILIRUBIN,TOTAL 0.7 mg/dl (0.2-1.3); TOTAL PROTEIN 5.1 g/dl (6.1-8.1)
[2017-01-16 10:43] LABS: AADO2 Arterial 115.6 mmHg (7.0-24.0); Allen Test ACCEPTAB; Arterial Base Excess 4.4 mmol/L (-3.0-3); Arterial COHb 1.4 % (0.0-3.0); Arterial Fraction of Oxyhgb 93.8 % (93.0-99.0); Arterial HCO3 28.8 mmol/L (22.0-26.0); Arterial MetHb 1.2 % (0.0-1.5); Arterial Total Hemglobin 12.3 g/dl (12.0-18.0); MODE NASAL CANNULA
[2017-01-16] MEDS: DUTASTERIDE 0.5 MG CAP PO SCH (12:14)
--- NOTE | 2017-01-16 13:03 | CONS ---
Date/Time of Note Date/Time of Note DATE: 01/16/17 TIME: 13:02 Assessment/Plan Assessment/Plan Chief Complaint/Hosp Course SUBJECTIVE: Alert, feels better, no fevers, nad MICROBIOLOGY: Sputum cx + GNR/C albicans. ANTIMICROBIALS: The patient is on vancomycin, Zosyn, Diflucan, Dapsone and Valcyte. PHYSICAL EXAMINATION: GENERAL: This is a well-developed elderly man who is alert, in no distress. HEENT: Head atraumatic, normocephalic. Sclerae anicteric. Buccal mucosa dry. NECK: Supple, trachea midline. CHEST: Rise symmetrical. Breath sounds diminished to bases. HEART: S1, S2. ABDOMEN: Soft, bowel tones present. EXTREMITIES: No cyanosis. ASSESSMENT: 1. Sepsis with fevers on admission. 2. Pneumonia, likely community acquired, r/o opportunistic. 3. Hypoxemic respiratory failure. 4. History of primary biliary cirrhosis, status post liver transplant in 1989, on immunosuppressive therapy. 5. Diabetes mellitus. 6. Urinary retention==> s/p [place] PLAN: Improving, continue abx, f/u pulmonary/ rec-s, awaiting for [facility] bed. RANDI Zuniga Problems: Consultation Date/Type/Reason Admit Date/Time Jan 12, 2017 at 05:55 Type of Consultation: id Exam/Review of Systems Vital Signs Vitals Vital Signs Date Time Temp Pulse Resp B/P Pulse Ox O2 Delivery O2 Flow Rate FiO2 01/16/17 12:22 98.4 92 21 156/70 93 01/16/17 07:53 21 01/16/17 07:53 6.0 01/16/17 07:46 Nasal Cannula Intake and Output 01/15/17 01/15/17 01/16/17 15:00 23:00 07:00 Intake Total 800 ml 1320 ml Output Total 1200 ml 2000 ml Balance -1200 ml 800 ml -680 ml Results Result Diagram: 01/16/1771601/16/1717 Results 24 hrs Laboratory Tests Test 01/15/17 17:22 01/15/17 20:26 01/16/17 07:07 01/16/17 07:17 Bedside Glucose 143 159 Total Bilirubin 0.7 Direct Bilirubin 0.00 Indirect Bilirubin 0.7 Aspartate Amino Transf (AST/SGOT) 28 Alanine Aminotransferase (ALT/SGPT) 31 Alkaline Phosphatase 74 Total Protein 5.1 L Albumin 2.7 L White Blood Count 9.8 # Red Blood Count 4.31 L Hemoglobin 11.5 L Hematocrit 37.0 L Mean Corpuscular Volume 85.8 Mean Corpuscular Hemoglobin 26.7 L Mean Corpuscular Hemoglobin Concent 31.1 L Red Cell Distribution Width 16.9 H Platelet Count 181 Mean Platelet Volume 9.6 Neutrophils % 93.4 H Lymphocytes % 1.4 L Monocytes % 3.3 Eosinophils % 0.0 Basophils % 0.2 Nucleated Red Blood Cells % 0.0 Neutrophils # 9.2 H Lymphocytes # 0.1 L Monocytes # 0.3 Eosinophils # 0.0 Basophils # 0.0 Nucleated Red Blood Cells # 0.0 Prothrombin Time 47.9 #H Prothrombin Time Ratio 3.7 INR International Normalized Ratio 5.07 Sodium Level 136 Potassium Level 3.9 Chloride Level 96 L Carbon Dioxide Level 31 Anion Gap 13 Blood Urea Nitrogen 32 H Creatinine 1.05 Glucose Level 224 H Calcium Level 8.3 L Test 01/16/17 07:32 01/16/17 10:19 01/16/17 11:46 Bedside Glucose 206 244 H Blood Gas Specimen Source Blood arterial Arterial Blood Date Drawn 01/16/2017 10:36:06 AM Arterial Blood pH (Temp corrected) 7.453 H Arterial Blood pCO2 (Temp correct) 42.1 Arterial Blood pO2 (Temp corrected) 92.2 H Arterial Blood HCO3 28.8 H Arterial Blood Base Excess 4.4 H Arterial Blood Oxygen Saturation 96.3 Greg Test ACCEPTAB Arterial Blood Gas Puncture Site Left Radial Arterial Blood Carboxyhemoglobin 1.4 Arterial Blood Methemoglobin 1.2 Blood Gas A-a O2 Differential 115.6 H Oxyhemoglobin Percent 93.8 Total Hemoglobin 12.3 Blood Gas Temperature 37.0 Blood Gas Modality NASAL CANNULA FiO2 36.0 Blood Gas Notified Whom JLD Blood Gas Notified Time 01/16/2017 10:43:47 AM Medications Medications Current Medications Ondansetron HCl (Zofran Inj) 4 mg Q6H PRN IV NAUSEA AND/OR VOMITING; Start at 06:30 Acetaminophen (Tylenol Tab) 650 mg Q6H PRN PO PAIN LEVEL 1-3 OR FEVER; Start at 06:30 Acetaminophen/ Hydrocodone Bitart ([place] (5/325)) 1 tab Q6H PRN PO MODERATE PAIN LEVEL 4-6; Start 01/12/17 at 06:30 Morphine Sulfate (morphine) 2 mg Q4H PRN IV SEVERE PAIN LEVEL 7-10 Last administered on 01/14/17 14:55; Admin Dose 2 MG; Start 01/12/17 at 06:30 Docusate Sodium (Colace) 100 mg Q12H PRN PO CONSTIPATION Last administered on 05:35; Admin Dose 100 MG; Start 01/12/17 at 06:30 Magnesium Hydroxide (Milk Of Mag) 30 ml DAILY PRN PO CONSTIPATION; Start at 06:30 Sodium Biphosphate/ Sodium Phosphate (Fleet Enema) 133 ml DAILY PRN [place] CONSTIPATION; Start 01/12/17 at 06:30 Pantoprazole 40 mg 40 mg DAILY@06 IV Last administered on 01/16/17 05:23; Admin Dose 40 MG; Start 01/13/17 at 06:00 Sodium Chloride (1/2 NS) 1,000 ml @ 30 mls/hr Q24H IV Last administered on 03:01; Admin Dose 30 MLS/HR; Start 01/12/17 at 06:08 Lorazepam 0.5 mg 0.5 mg Q6H PRN IV ANXIETY; Start 01/12/17 at 06:30 Piperacillin Sod/ Tazobactam Sod (Zosyn 3.375gm/ 100 ml (Pmx)) 100 ml @ 200 mls /hr Q6 IVPB Last administered on 01/16/17 12:15; Admin Dose 200 MLS/HR; Start 01/12/17 at 12:00 Vancomycin HCl (Vanco Iv Per Pharmacy) VANCOMYCIN PER PHARMACY NOTE XX ; Start 01/12/17 at 06:30 Hydralazine HCl (Apresoline) 10 mg Q6H PRN IV ELEVATED BLOOD PRESSURE Last administered on 01/14/17 08:01; Admin Dose 10 MG; Start 01/12/17 at 06:30 Clonidine (Catapres) 0.1 mg Q6H PRN PO ELEVATED BLOOD PRESSURE; Start 01/12/17 at 06:30 Nitroglycerin (Nitroglycerin (Sl Tab) 0.4 Mg) 1 tab Q5M PRN SL ANGINA; Start at 06:30 Atorvastatin Calcium (Lipitor) 40 mg QHS PO Last administered on 01/15/17 20: 23; Admin Dose 40 MG; Start 01/13/17 at 21:00 Cyclosporine (Neoral) 100 mg BID PO Last administered on 01/16/17 08:30; Admin Dose 100 MG; Start 01/13/17 at 09:00 Dapsone (Dapsone) 100 mg DAILY PO Last administered on 01/15/17 08:07; Admin Dose 100 MG; Start 01/13/17 at 09:00 Dutasteride (Avodart) 0.5 mg DAILY PO Last administered on 01/16/17 12:14; Admin Dose 0.5 MG; Start 01/13/17 at 09:00 Fluticasone Propionate (Flonase 0.05% Nasal) 1 spray DAILY NASAL Last administered on 01/16/17 08:28; Admin Dose 1 SPRAY; Start 01/13/17 at 09:00 Ipratropium [place] (Atrovent Hfa) 2 puff QID INH Last administered on 12:21; Admin Dose 2 PUFF; Start 01/13/17 at 09:00 Insulin Glargine (Lantus) 75 unit AM SC Last administered on 01/16/17 08:24; Admin Dose 75 UNIT; Start 01/14/17 at 09:00 Valganciclovir (Valcyte) 450 mg BID PO Last administered on 01/16/17 08:31; Admin Dose 450 MG; Start 01/12/17 at 23:00 Mycophenolate Mofetil (Cellcept) 1,000 mg BID PO Last administered on 08:31; Admin Dose 1,000 MG; Start 01/13/17 at 02:45 Magnesium Oxide (Mag-Ox 400) 400 mg BID PO Last administered on 01/16/17 08:31 ; Admin Dose 400 MG; Start 01/13/17 at 21:00 Diagnostic Test (Pha) (Accucheck) 1 ea 02 XX ; Start 01/14/17 at 02:00 Miscellaneous Information 1 ea NOTE XX ; Start 01/13/17 at 15:00 Glucose (Glutose) 15 gm Q15M PRN PO DECREASED GLUCOSE; Start 01/13/17 at 15:00 Glucose (Glutose) 22.5 gm Q15M PRN PO DECREASED GLUCOSE; Start 01/13/17 at 15: 00 Dextrose (D50w Syringe) 25 ml Q15M PRN IV DECREASED GLUCOSE; Start 01/13/17 at 15:00 Dextrose (D50w Syringe) 50 ml Q15M PRN IV DECREASED GLUCOSE; Start 01/13/17 at 15:00 Glucagon (Glucagen) 1 mg Q15M PRN IM DECREASED GLUCOSE; Start 01/13/17 at 15:00 Glucose 15 gm 15 gm Q15M PRN BUCCAL DECREASED GLUCOSE; Start 01/13/17 at 15:00 Vancomycin HCl (Vancocin) 250 ml @ 125 mls/hr Q12H IVPB Last administered on 03:42; Admin Dose 125 MLS/HR; Start 01/14/17 at 03:00 Lisinopril (Zestril) 40 mg DAILY PO Last administered on 01/16/17 08:29; Admin Dose 40 MG; Start 01/14/17 at 11:00 Furosemide (Lasix) 20 mg DAILY IV Last administered on 01/16/17 08:32; Admin Dose 20 MG; Start 01/15/17 at 09:00 Methylprednisolone Sodium Succinate (Solu-Medrol) 40 mg Q8 IV Last administered on 01/16/17 05:23; Admin Dose 40 MG; Start 01/14/17 at 14:00 Fluconazole (Diflucan) 100 mg DAILY PO Last administered on 01/16/17 08:30; Admin Dose 100 MG; Start 01/15/17 at 12:00 Nystatin (Nystatin Susp) 5 ml QID PO Last administered on 01/16/17 12:20; Admin Dose 5 ML; Start 01/15/17 at 13:00 Salmeterol Xinafoate/ Fluticasone (Advair 250/50 Diskus) 1 inh BID INH Last administered on 01/16/17 08:28; Admin Dose 1 INH; Start 01/15/17 at 14:30 Tiotropium [place] (Spiriva) 1 inh DAILY INH Last administered on 01/16/17 08: 27; Admin Dose 1 INH; Start 01/15/17 at 14:30 Tamsulosin HCl (Flomax) 0.4 mg HS PO Last administered on 01/15/17 20:23; Admin Dose 0.4 MG; Start 01/15/17 at 21:00 CHRISTINA LOTT NP Jan 16, 2017 13:03
--- NOTE | 2017-01-16 14:26 | CONS ---
Date/Time of Note Date/Time of Note DATE: 01/16/17 TIME: 14:23 Consult Date/Type/Reason Admit Date/Time Jan 12, 2017 at 05:55 Type of Consultation: pulmonary Subjective Patient states he is slowly improving. Objective Vital Signs Date Time Temp Pulse Resp B/P Pulse Ox O2 Delivery O2 Flow Rate FiO2 01/16/17 13:13 92 Nasal Cannula 5.0 01/16/17 12:26 91 01/16/17 12:22 98.4 21 156/70 01/16/17 07:53 21 Intake and Output 01/15/17 01/15/17 01/16/17 15:00 23:00 07:00 Intake Total 800 ml 1320 ml Output Total 1200 ml 2000 ml Balance -1200 ml 800 ml -680 ml Exam GENERAL: Elderly gentleman comfortable at rest VITAL SIGNS: per chart NECK: Supple. No JVD or lymphadenopathy. CARDIAC EXAM: S1, S2. No added sounds or murmurs. CHEST: Diminished air entry bilaterally with rales ABDOMEN: Soft, nontender. No guarding or rebound. EXTREMITIES: No cyanosis, clubbing or edema. NEUROLOGIC: Generalized weakness. No focal deficits.Normal exam Results/Medications Result Diagram: 01/16/1717 01/16/17 0717 Results 24 hrs Laboratory Tests Test 01/15/17 17:22 01/15/17 20:26 01/16/17 07:07 01/16/17 07:17 Bedside Glucose 143 159 Total Bilirubin 0.7 Direct Bilirubin 0.00 Indirect Bilirubin 0.7 Aspartate Amino Transf (AST/SGOT) 28 Alanine Aminotransferase (ALT/SGPT) 31 Alkaline Phosphatase 74 Total Protein 5.1 L Albumin 2.7 L White Blood Count 9.8 # Red Blood Count 4.31 L Hemoglobin 11.5 L Hematocrit 37.0 L Mean Corpuscular Volume 85.8 Mean Corpuscular Hemoglobin 26.7 L Mean Corpuscular Hemoglobin Concent 31.1 L Red Cell Distribution Width 16.9 H Platelet Count 181 Mean Platelet Volume 9.6 Neutrophils % 93.4 H Lymphocytes % 1.4 L Monocytes % 3.3 Eosinophils % 0.0 Basophils % 0.2 Nucleated Red Blood Cells % 0.0 Neutrophils # 9.2 H Lymphocytes # 0.1 L Monocytes # 0.3 Eosinophils # 0.0 Basophils # 0.0 Nucleated Red Blood Cells # 0.0 Prothrombin Time 47.9 #H Prothrombin Time Ratio 3.7 INR International Normalized Ratio 5.07 Sodium Level 136 Potassium Level 3.9 Chloride Level 96 L Carbon Dioxide Level 31 Anion Gap 13 Blood Urea Nitrogen 32 H Creatinine 1.05 Glucose Level 224 H Calcium Level 8.3 L Test 01/16/17 07:32 01/16/17 10:19 01/16/17 11:46 Bedside Glucose 206 244 H Blood Gas Specimen Source Blood arterial Arterial Blood Date Drawn 01/16/2017 10:36:06 AM Arterial Blood pH (Temp corrected) 7.453 H Arterial Blood pCO2 (Temp correct) 42.1 Arterial Blood pO2 (Temp corrected) 92.2 H Arterial Blood HCO3 28.8 H Arterial Blood Base Excess 4.4 H Arterial Blood Oxygen Saturation 96.3 Greg Test ACCEPTAB Arterial Blood Gas Puncture Site Left Radial Arterial Blood Carboxyhemoglobin 1.4 Arterial Blood Methemoglobin 1.2 Blood Gas A-a O2 Differential 115.6 H Oxyhemoglobin Percent 93.8 Total Hemoglobin 12.3 Blood Gas Temperature 37.0 Blood Gas Modality NASAL CANNULA FiO2 36.0 Blood Gas Notified Whom JLD Blood Gas Notified Time 01/16/2017 10:43:47 AM Medications Current Medications Ondansetron HCl (Zofran Inj) 4 mg Q6H PRN IV NAUSEA AND/OR VOMITING; Start at 06:30 Acetaminophen (Tylenol Tab) 650 mg Q6H PRN PO PAIN LEVEL 1-3 OR FEVER; Start at 06:30 Acetaminophen/ Hydrocodone Bitart ([place] (5/325)) 1 tab Q6H PRN PO MODERATE PAIN LEVEL 4-6; Start 01/12/17 at 06:30 Morphine Sulfate (morphine) 2 mg Q4H PRN IV SEVERE PAIN LEVEL 7-10 Last administered on 01/14/17 14:55; Admin Dose 2 MG; Start 01/12/17 at 06:30 Docusate Sodium (Colace) 100 mg Q12H PRN PO CONSTIPATION Last administered on 05:35; Admin Dose 100 MG; Start 01/12/17 at 06:30 Magnesium Hydroxide (Milk Of Mag) 30 ml DAILY PRN PO CONSTIPATION; Start at 06:30 Sodium Biphosphate/ Sodium Phosphate (Fleet Enema) 133 ml DAILY PRN [place] CONSTIPATION; Start 01/12/17 at 06:30 Pantoprazole 40 mg 40 mg DAILY@06 IV Last administered on 01/16/17 05:23; Admin Dose 40 MG; Start 01/13/17 at 06:00 Sodium Chloride (1/2 NS) 1,000 ml @ 30 mls/hr Q24H IV Last administered on 03:01; Admin Dose 30 MLS/HR; Start 01/12/17 at 06:08 Lorazepam 0.5 mg 0.5 mg Q6H PRN IV ANXIETY; Start 01/12/17 at 06:30 Piperacillin Sod/ Tazobactam Sod (Zosyn 3.375gm/ 100 ml (Pmx)) 100 ml @ 200 mls /hr Q6 IVPB Last administered on 01/16/17 12:15; Admin Dose 200 MLS/HR; Start 01/12/17 at 12:00 Vancomycin HCl (Vanco Iv Per Pharmacy) VANCOMYCIN PER PHARMACY NOTE XX ; Start 01/12/17 at 06:30 Hydralazine HCl (Apresoline) 10 mg Q6H PRN IV ELEVATED BLOOD PRESSURE Last administered on 01/14/17 08:01; Admin Dose 10 MG; Start 01/12/17 at 06:30 Clonidine (Catapres) 0.1 mg Q6H PRN PO ELEVATED BLOOD PRESSURE; Start 01/12/17 at 06:30 Nitroglycerin (Nitroglycerin (Sl Tab) 0.4 Mg) 1 tab Q5M PRN SL ANGINA; Start at 06:30 Atorvastatin Calcium (Lipitor) 40 mg QHS PO Last administered on 01/15/17 20: 23; Admin Dose 40 MG; Start 01/13/17 at 21:00 Cyclosporine (Neoral) 100 mg BID PO Last administered on 01/16/17 08:30; Admin Dose 100 MG; Start 01/13/17 at 09:00 Dapsone (Dapsone) 100 mg DAILY PO Last administered on 01/15/17 08:07; Admin Dose 100 MG; Start 01/13/17 at 09:00 Dutasteride (Avodart) 0.5 mg DAILY PO Last administered on 01/16/17 12:14; Admin Dose 0.5 MG; Start 01/13/17 at 09:00 Fluticasone Propionate (Flonase 0.05% Nasal) 1 spray DAILY NASAL Last administered on 01/16/17 08:28; Admin Dose 1 SPRAY; Start 01/13/17 at 09:00 Ipratropium [place] (Atrovent Hfa) 2 puff QID INH Last administered on 12:21; Admin Dose 2 PUFF; Start 01/13/17 at 09:00 Insulin Glargine (Lantus) 75 unit AM SC Last administered on 01/16/17 08:24; Admin Dose 75 UNIT; Start 01/14/17 at 09:00 Valganciclovir (Valcyte) 450 mg BID PO Last administered on 01/16/17 08:31; Admin Dose 450 MG; Start 01/12/17 at 23:00 Mycophenolate Mofetil (Cellcept) 1,000 mg BID PO Last administered on 08:31; Admin Dose 1,000 MG; Start 01/13/17 at 02:45 Magnesium Oxide (Mag-Ox 400) 400 mg BID PO Last administered on 01/16/17 08:31 ; Admin Dose 400 MG; Start 01/13/17 at 21:00 Diagnostic Test (Pha) (Accucheck) 1 ea 02 XX ; Start 01/14/17 at 02:00 Miscellaneous Information 1 ea NOTE XX ; Start 01/13/17 at 15:00 Glucose (Glutose) 15 gm Q15M PRN PO DECREASED GLUCOSE; Start 01/13/17 at 15:00 Glucose (Glutose) 22.5 gm Q15M PRN PO DECREASED GLUCOSE; Start 01/13/17 at 15: 00 Dextrose (D50w Syringe) 25 ml Q15M PRN IV DECREASED GLUCOSE; Start 01/13/17 at 15:00 Dextrose (D50w Syringe) 50 ml Q15M PRN IV DECREASED GLUCOSE; Start 01/13/17 at 15:00 Glucagon (Glucagen) 1 mg Q15M PRN IM DECREASED GLUCOSE; Start 01/13/17 at 15:00 Glucose 15 gm 15 gm Q15M PRN BUCCAL DECREASED GLUCOSE; Start 01/13/17 at 15:00 Vancomycin HCl (Vancocin) 250 ml @ 125 mls/hr Q12H IVPB Last administered on 03:42; Admin Dose 125 MLS/HR; Start 01/14/17 at 03:00 Lisinopril (Zestril) 40 mg DAILY PO Last administered on 01/16/17 08:29; Admin Dose 40 MG; Start 01/14/17 at 11:00 Furosemide (Lasix) 20 mg DAILY IV Last administered on 01/16/17 08:32; Admin Dose 20 MG; Start 01/15/17 at 09:00 Methylprednisolone Sodium Succinate (Solu-Medrol) 40 mg Q8 IV Last administered on 01/16/17 05:23; Admin Dose 40 MG; Start 01/14/17 at 14:00 Fluconazole (Diflucan) 100 mg DAILY PO Last administered on 01/16/17 08:30; Admin Dose 100 MG; Start 01/15/17 at 12:00 Nystatin (Nystatin Susp) 5 ml QID PO Last administered on 01/16/17 12:20; Admin Dose 5 ML; Start 01/15/17 at 13:00 Salmeterol Xinafoate/ Fluticasone (Advair 250/50 Diskus) 1 inh BID INH Last administered on 01/16/17 08:28; Admin Dose 1 INH; Start 01/15/17 at 14:30 Tiotropium [place] (Spiriva) 1 inh DAILY INH Last administered on 01/16/17 08: 27; Admin Dose 1 INH; Start 01/15/17 at 14:30 Tamsulosin HCl (Flomax) 0.4 mg HS PO Last administered on 01/15/17 20:23; Admin Dose 0.4 MG; Start 01/15/17 at 21:00 Assessment/Plan Chief Complaint/Hosp Course Assessment 1. Likely community acquired pneumonia. Differential does include opportunistic infection. 2. Significant hypoxemia with possible component of tracheobronchitis and bronchospasm. 3. Possible mild congestive cardiac failure. 4. 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 Contact individual is catalino Flores Aneta [phone] PLAN: 1. Continue antirejection medications. 2. Continue broad-spectrum antibiotics, continue intervenous steroids 3. Continue Lasix for possible component of mild failure. 4. Liaise with liver transplant team. 5. Pending transfer back to [facility] for continuing care. 6. GI recommendations Problems: [facility]Y [facility], [facility] Jan 16, 2017 14:26
[2017-01-16] MEDS ORDERED: WARFARIN 2 MG TAB PO SCH (17:00)
[2017-01-16] MEDS ORDERED: WARFARIN 5 MG TAB PO SCH (17:00)
[2017-01-16] MEDS: ATORVASTATIN 40 MG TAB PO SCH (20:20)
[2017-01-16] MEDS: METOPROLOL 25 MG TAB PO SCH (20:22)
[2017-01-16] MEDS: SOD CHLORIDE 0.45% 1,000 ML IV SCH ×2 (20:23→23:50)
[2017-01-16] MEDS: TAMSULOSIN (SR) 0.4 MG CAP PO SCH (20:26)
--- NOTE | 2017-01-16 21:00 | PN ---
DATE: 01/16/2017 CHIEF COMPLAINT: Gross hematuria and urinary retention. SUBJECTIVE: The patient at the present is feeling better and he is sitting up in the chair and has no complaints. He does have occasional bladder spasm when he feels the urge to urinate at the tip of the penis, but that goes away within a second. OBJECTIVE VITAL SIGNS: Patient is afebrile, temperature is 98.3, pulse is 94, respiration 19, blood pressure 140/65. GENITOURINARY: Stevens catheter that he has is draining clear and blood-tinged urine. LABORATORY DATA: Revealed a PT of 47.9, INR 5.07. (I do see in the medication list that the warfar in/Coumadin has been stopped). The CBC shows a white count of 9.8, hemoglobin 11.5, hematocrit 37.0 , BUN is 32, creatinine 1.05. Electrolytes: Sodium 136, potassium 3.9, chloride 96, CO2 of 31. Ur ine culture: No growth after 24 hours. RENAL ULTRASOUND: Normal. IMPRESSION: Hematuria, most likely related to the elevated INR and PT. The patient also was starte d on Flomax yesterday. PLAN: Therefore recommendation is to continue the Flomax, keep the Stevens catheter in, recheck his P T and keep it within the therapeutic range; at the present, it is too high and that could be a reaso n for his bleeding as well. I will follow his urological problem with you. Dictated By: KWADWO OVALLE/HILARIO Conf#: [id number] DID#: [id number]
[2017-01-17] VITALS (11 sets, daily range): BP systolic 121–160; BP diastolic 61–81; PULSE 72–94; RESP 20
[2017-01-17] MEDS: ACCU-CHEK XX SCH (01:50)
[2017-01-17] MEDS: VANCOMYCIN 1 GM in NS 250 ML IVPB SCH ×2 (03:21→15:00)
[2017-01-17] MEDS: METHYLPREDNISOLONE 40 MG INJ IV SCH ×3 (06:28→21:45)
[2017-01-17] MEDS: PIPER-TAZO 3.375 GM IV (PMX) 100 ML IVPB SCH ×4 (06:28→23:03)
[2017-01-17] MEDS: PANTOPRAZOLE 40 MG INJ IV SCH (06:28)
[2017-01-17] MEDS: ALBUTEROL/IPRATROPIUM (NEB) 3 ML AMP HHN SCH ×3 (08:00→19:17)
[2017-01-17] MEDS: NYSTATIN SUSP 5 ML CUP PO SCH ×4 (08:45→20:33)
[2017-01-17] MEDS: CYCLOSPORINE MICROEMULS 100 MG CAP PO SCH ×2 (08:45→21:42)
[2017-01-17] MEDS: FUROSEMIDE 20 MG INJ IV SCH (08:45)
[2017-01-17] MEDS: FLUCONAZOLE 100 MG TAB PO SCH (08:46)
[2017-01-17] MEDS: MYCOPHENOLATE 250 MG CAP PO SCH ×2 (08:46→20:32)
[2017-01-17] MEDS: TIOTROPIUM 18 MCG CAPSULE INHA DEV INH SCH (08:46)
[2017-01-17] MEDS: MAGNESIUM OXIDE 400 MG TAB PO SCH ×2 (08:47→20:32)
[2017-01-17] MEDS: SALMETEROL/FLUTICASONE 250/50 INHA INH SCH ×2 (08:47→20:31)
[2017-01-17] MEDS: METOPROLOL 25 MG TAB PO SCH ×2 (08:47→20:32)
[2017-01-17] MEDS: VALGANCICLOVIR 450 MG TAB PO SCH ×2 (08:47→20:33)
[2017-01-17] MEDS: FLUTICASONE 0.05% 16 GM NAS SPRAY NASAL SCH (08:48)
[2017-01-17] MEDS: DUTASTERIDE 0.5 MG CAP PO SCH (08:48)
[2017-01-17] MEDS: IPRATROPIUM (HFA) 12.9 GM INHALER INH SCH ×4 (08:48→20:31)
[2017-01-17] MEDS: INSULIN ASPART [NOVOLOG] 3 ML PEN SC SCH ×7 (08:50→20:38)
[2017-01-17] MEDS: INSULIN GLARGINE [LANtus] 3 ML PEN SC SCH (08:51)
[2017-01-17] MEDS: DAPSONE 100 MG TAB PO SCH (08:55)
[2017-01-17] MEDS: SOD CHLORIDE 0.45% 1,000 ML IV SCH (08:56)
[2017-01-17 09:02] LABS: ALBUMIN 2.8 g/dl (3.3-4.9)
[2017-01-17 09:04] LABS: BILIRUBIN,INDIRECT 0.6 mg/dl (0-1.1); BILIRUBIN,TOTAL 0.6 mg/dl (0.2-1.3); TOTAL PROTEIN 5.4 g/dl (6.1-8.1)
[2017-01-17 09:43] LABS: ADD SCAN DIFF NO
[2017-01-17 09:46] LABS: ABNORMAL IP MESSAGE 1; BASOPHILS % 0.3 % (0.0-2.0); HEMATOCRIT 34.4 % (42.0-52.0); HEMOGLOBIN 10.8 g/dl (14.0-18.0); LYMPHOCYTES # 0.1 10^3/ul (0.8-2.9); LYMPHOCYTES % 1.3 % (15.0-51.0); MEAN CORPUSCULAR HEMOGLOBIN 26.9 pg (29.0-33.0); MEAN CORPUSCULAR HGB CONC 31.4 g/dl (32.0-37.0); MEAN CORPUSCULAR VOLUME 85.8 fl (82.0-101.0); MEAN PLATELET VOLUME 9.3 fl (7.4-10.4); MONOCYTE # 0.4 10^3/ul (0.3-0.9); MONOCYTES % 4.2 % (0.0-11.0); NEUTROPHIL # 9.4 10^3/ul (1.6-7.5); NEUTROPHILS % 90.7 % (39.0-77.0); PLATELET COUNT 176 10^3/UL (140-415); RED BLOOD COUNT 4.01 10^6/ul (4.70-6.10); WHITE BLOOD COUNT 10.4 10^3/ul (4.8-10.8)
[2017-01-17] MEDS: LISINOPRIL 20 MG TAB PO SCH (09:48)
[2017-01-17 09:54] LABS: CREATININE 1.15 mg/dl (0.61-1.24)
[2017-01-17 09:55] LABS: CALCIUM 8.3 mg/dl (8.4-10.2)
[2017-01-17] MEDS ORDERED: INSULIN GLARGINE [LANtus] 3 ML PEN SC ONE (10:30)
--- NOTE | 2017-01-17 10:38 | PN ---
Date/Time of Note Date/Time of Note DATE: 01/17/17 TIME: 10:37 Assessment/Plan VTE Prophylaxis VTE Prophylaxis Intervention: SCD's VTE Contraindication Reason: blood coagulation disorder Lines/Catheters IV [facility] Saline Lock Urinary Cath still in place: Yes Reason Cath still needed: other (indicate) (to be removed today) Assessment/Plan Assessment/Plan 71-year-old male coming in with hypoxia and fever and weakness with signs of sepsis with lactic acidosis, 1. Sepsis + Lactic acidosis 2/2 #2: resolved 2. Acute Respiratory failure: improved, Patient still requiring o2 at 5L Echo wasn't impressive with Ef 55% and no significant valvular deficit 3. Bilateral Pneumonia (Recurrent versus incompletely treated) Patient was treated for similar about 6 weeks ago Patient was discharged on Dapsone for PCP prophylaxis 4. 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 Hypertension: improved control 6. Antiphospholipid antibody syndrome + hx of DVT for which patient was on coumadin 7. Supratherapeutic INR 8. Dyslipidemia 9. BPH with Urinary retention and hematuria 9. Diabetes type 2 on insulin therapy 10. Mild thrombocytopenia 11. Oral thrush PLAN: * Continue broad spectrum abx therapy * Continue bronchodilator therapy / supplemental O2 / gentle lasix diuresis * Continue all antirejection meds * Appreciate urology input / spoke with Urology / plan to d/c mason today and see how patient does / monitor PVRs * Continue INR monitoring and Hold Coumadin for now / F/u INR from today * Continue to titrate meds for better BP control * Diabetic diet / SSI / Lantus . NovoLog * Begin to wean O2, PT eval * Supportive care * Discharge probably in 1-2 days if patient continues to improve Gastrointestinal prophylaxis, proton pump inhibitor. Deep venous thrombosis prophylaxis: SCDs / ambulation Subjective 24 Hr Interval Summary Free Text/Dictation Patient requesting discharge but still requiring high flow O2. Confusion is somewhat better Exam/Review of Systems Vital Signs Vitals Vital Signs Date Time Temp Pulse Resp B/P Pulse Ox O2 Delivery O2 Flow Rate FiO2 01/17/17 08:13 98.0 93 20 147/61 96 01/17/17 01:36 5.0 01/16/17 21:04 Nasal Cannula 01/16/17 07:53 21 Intake and Output 01/16/17 01/16/17 01/17/17 14:59 22:59 06:59 Intake Total 1100 ml 1270 ml Output Total 1300 ml 2000 ml Balance -200 ml -730 ml Exam Constitutional: alert, oriented, No distress Psych: confusion (intermittent) Head: atraumatic, normocephalic Eyes: PERRL ENMT: mucosa pink and moist Neck: supple Respiratory: crackles/rales, diminished breath sounds Cardiovascular: murmurs/extra sounds, No regular rate and rhythm Gastrointestinal: bowel sounds, non-tender, soft Extremities: edema Neurological: No so confused today Results Result Diagram: 01/17/17 0725 01/17/17 0725 Results 24 hrs Laboratory Tests Test 01/16/17 11:46 01/16/17 17:38 01/16/17 20:35 01/17/17 01:24 Bedside Glucose 244 H 184 220 313 H Test 01/17/17 07:25 01/17/17 08:27 White Blood Count 10.4 Red Blood Count 4.01 L Hemoglobin 10.8 L Hematocrit 34.4 L Mean Corpuscular Volume 85.8 Mean Corpuscular Hemoglobin 26.9 L Mean Corpuscular Hemoglobin Concent 31.4 L Red Cell Distribution Width 17.0 H Platelet Count 176 Mean Platelet Volume 9.3 Neutrophils % 90.7 H Lymphocytes % 1.3 L Monocytes % 4.2 Eosinophils % 0.0 Basophils % 0.3 Nucleated Red Blood Cells % 0.0 Neutrophils # 9.4 H Lymphocytes # 0.1 L Monocytes # 0.4 Eosinophils # 0.0 Basophils # 0.0 Nucleated Red Blood Cells # 0.0 Sodium Level 133 L Potassium Level 4.0 Chloride Level 95 L Carbon Dioxide Level 32 H Anion Gap 10 Blood Urea Nitrogen 38 H Creatinine 1.15 Glucose Level 365 H Calcium Level 8.3 L Total Bilirubin 0.6 Direct Bilirubin 0.00 Indirect Bilirubin 0.6 Aspartate Amino Transf (AST/SGOT) 21 Alanine Aminotransferase (ALT/SGPT) 28 Alkaline Phosphatase 76 Total Protein 5.4 L Albumin 2.8 L Bedside Glucose 406 *H Medications Medications Current Medications Ondansetron HCl (Zofran Inj) 4 mg Q6H PRN IV NAUSEA AND/OR VOMITING; Start at 06:30 Acetaminophen (Tylenol Tab) 650 mg Q6H PRN PO PAIN LEVEL 1-3 OR FEVER; Start at 06:30 Acetaminophen/ Hydrocodone Bitart ([place] (5/325)) 1 tab Q6H PRN PO MODERATE PAIN LEVEL 4-6; Start 01/12/17 at 06:30 Morphine Sulfate (morphine) 2 mg Q4H PRN IV SEVERE PAIN LEVEL 7-10 Last administered on 01/14/17 14:55; Admin Dose 2 MG; Start 01/12/17 at 06:30 Docusate Sodium (Colace) 100 mg Q12H PRN PO CONSTIPATION Last administered on 05:35; Admin Dose 100 MG; Start 01/12/17 at 06:30 Magnesium Hydroxide (Milk Of Mag) 30 ml DAILY PRN PO CONSTIPATION; Start at 06:30 Sodium Biphosphate/ Sodium Phosphate (Fleet Enema) 133 ml DAILY PRN [place] CONSTIPATION; Start 01/12/17 at 06:30 Pantoprazole 40 mg 40 mg DAILY@06 IV Last administered on 01/17/17 06:28; Admin Dose 40 MG; Start 01/13/17 at 06:00 Sodium Chloride (1/2 NS) 1,000 ml @ 30 mls/hr Q24H IV Last administered on 08:56; Admin Dose 30 MLS/HR; Start 01/12/17 at 06:08 Lorazepam 0.5 mg 0.5 mg Q6H PRN IV ANXIETY; Start 01/12/17 at 06:30 Piperacillin Sod/ Tazobactam Sod (Zosyn 3.375gm/ 100 ml (Pmx)) 100 ml @ 200 mls /hr Q6 IVPB Last administered on 01/17/17 06:28; Admin Dose 200 MLS/HR; Start 01/12/17 at 12:00 Vancomycin HCl (Vanco Iv Per Pharmacy) VANCOMYCIN PER PHARMACY NOTE XX ; Start 01/12/17 at 06:30 Hydralazine HCl (Apresoline) 10 mg Q6H PRN IV ELEVATED BLOOD PRESSURE Last administered on 01/14/17 08:01; Admin Dose 10 MG; Start 01/12/17 at 06:30 Clonidine (Catapres) 0.1 mg Q6H PRN PO ELEVATED BLOOD PRESSURE; Start 01/12/17 at 06:30 Nitroglycerin (Nitroglycerin (Sl Tab) 0.4 Mg) 1 tab Q5M PRN SL ANGINA; Start at 06:30 Atorvastatin Calcium (Lipitor) 40 mg QHS PO Last administered on 01/16/17 20: 20; Admin Dose 40 MG; Start 01/13/17 at 21:00 Cyclosporine (Neoral) 100 mg BID PO Last administered on 01/17/17 08:45; Admin Dose 100 MG; Start 01/13/17 at 09:00 Dapsone (Dapsone) 100 mg DAILY PO Last administered on 01/15/17 08:07; Admin Dose 100 MG; Start 01/13/17 at 09:00 Dutasteride (Avodart) 0.5 mg DAILY PO Last administered on 01/17/17 08:48; Admin Dose 0.5 MG; Start 01/13/17 at 09:00 Fluticasone Propionate (Flonase 0.05% Nasal) 1 spray DAILY NASAL Last administered on 01/17/17 08:48; Admin Dose 1 SPRAY; Start 01/13/17 at 09:00 Ipratropium [place] (Atrovent Hfa) 2 puff QID INH Last administered on 08:48; Admin Dose 2 PUFF; Start 01/13/17 at 09:00 Insulin Glargine (Lantus) 75 unit AM SC Last administered on 01/17/17 08:51; Admin Dose 75 UNIT; Start 01/14/17 at 09:00 Valganciclovir (Valcyte) 450 mg BID PO Last administered on 01/17/17 08:47; Admin Dose 450 MG; Start 01/12/17 at 23:00 Mycophenolate Mofetil (Cellcept) 1,000 mg BID PO Last administered on 08:46; Admin Dose 1,000 MG; Start 01/13/17 at 02:45 Magnesium Oxide (Mag-Ox 400) 400 mg BID PO Last administered on 01/17/17 08:47 ; Admin Dose 400 MG; Start 01/13/17 at 21:00 Diagnostic Test (Pha) (Accucheck) 1 ea 02 XX Last administered on 01/17/17 01: 50; Admin Dose 1 EA; Start 01/14/17 at 02:00 Miscellaneous Information 1 ea NOTE XX ; Start 01/13/17 at 15:00 Glucose (Glutose) 15 gm Q15M PRN PO DECREASED GLUCOSE; Start 01/13/17 at 15:00 Glucose (Glutose) 22.5 gm Q15M PRN PO DECREASED GLUCOSE; Start 01/13/17 at 15: 00 Dextrose (D50w Syringe) 25 ml Q15M PRN IV DECREASED GLUCOSE; Start 01/13/17 at 15:00 Dextrose (D50w Syringe) 50 ml Q15M PRN IV DECREASED GLUCOSE; Start 01/13/17 at 15:00 Glucagon (Glucagen) 1 mg Q15M PRN IM DECREASED GLUCOSE; Start 01/13/17 at 15:00 Glucose 15 gm 15 gm Q15M PRN BUCCAL DECREASED GLUCOSE; Start 01/13/17 at 15:00 Vancomycin HCl (Vancocin) 250 ml @ 125 mls/hr Q12H IVPB Last administered on 03:21; Admin Dose 125 MLS/HR; Start 01/14/17 at 03:00 Lisinopril (Zestril) 40 mg DAILY PO Last administered on 01/17/17 09:48; Admin Dose 40 MG; Start 01/14/17 at 11:00 Furosemide (Lasix) 20 mg DAILY IV Last administered on 01/17/17 08:45; Admin Dose 20 MG; Start 01/15/17 at 09:00 Methylprednisolone Sodium Succinate (Solu-Medrol) 40 mg Q8 IV Last administered on 01/17/17 06:28; Admin Dose 40 MG; Start 01/14/17 at 14:00 Fluconazole (Diflucan) 100 mg DAILY PO Last administered on 01/17/17 08:46; Admin Dose 100 MG; Start 01/15/17 at 12:00 Nystatin (Nystatin Susp) 5 ml QID PO Last administered on 01/17/17 08:45; Admin Dose 5 ML; Start 01/15/17 at 13:00 Salmeterol Xinafoate/ Fluticasone (Advair 250/50 Diskus) 1 inh BID INH Last administered on 01/17/17 08:47; Admin Dose 1 INH; Start 01/15/17 at 14:30 Tiotropium [place] (Spiriva) 1 inh DAILY INH Last administered on 01/17/17 08: 46; Admin Dose 1 INH; Start 01/15/17 at 14:30 Tamsulosin HCl (Flomax) 0.4 mg HS PO Last administered on 01/15/17 20:23; Admin Dose 0.4 MG; Start 01/15/17 at 21:00 Metoprolol Tartrate (Lopressor) 25 mg BID PO Last administered on 01/17/17 08: 47; Admin Dose 25 MG; Start 01/16/17 at 21:00 Insulin Glargine (Lantus) 42 unit BID SC ; Start 01/18/17 at 09:00; Status UNV Insulin Glargine (Lantus) 10 unit ONCE ONCE SC ; Start 01/17/17 at 10:30; Stop 01/17/17 at 10:31; Status UNV FRANSISCO CAM Jan 17, 2017 10:38
--- NOTE | 2017-01-17 12:56 | PN ---
DATE: 01/17/2017 SUBJECTIVE: Urinary retention. The patient has an indwelling Stevens catheter. The patient is also respiratory problem and he is on oxygen. OBJECTIVE: VITAL SIGNS: He is afebrile. Temperature is 98.2, pulse 82, respiratory rate 20, blood pressure 15 1/73. ABDOMEN: Stevens catheter is draining clear urine. LABORATORY DATA: His CBC shows a white count 10.4, hemoglobin 10.8, hematocrit 34.4. The BUN is 38 , creatinine 1.15. Sodium 133, potassium 4.0, chloride 95, CO2 32. The patient is on Tamsulosin 0. 4 mg daily, but he is also on treatment for his respiratory problems and pneumonia. He is on tiotr opium, which could also affect his breathing, as well as he is on ipratropium bromide and albuterol. He is also on dutasteride. PLAN: To continue the tamsulosin and the dutasteride. Remove the Stevens catheter and check his void ing and his postvoid residual, and if the PVR is over 300 mL, do straight catheterization. If he do es not urinate and the bladder volume is 500 mL, then do a straight catheterization as well. Dictated By: KWADWO OVALLE/HILARIO Conf#: [id number] DID#: [id number]
--- NOTE | 2017-01-17 14:38 | CONS ---
Date/Time of Note Date/Time of Note DATE: 01/17/17 TIME: 14:36 Assessment/Plan Assessment/Plan Additional Assessment/Plan Assessment recommendations; 1. Patient admitted with bilateral pneumonia with significant clinical improvement. 2. History of liver transplant, patient currently on chronic immunosuppression. 3. Hypertension and diabetes. Continue current treatment. Consultation Date/Type/Reason Admit Date/Time Jan 12, 2017 at 05:55 Type of Consultation: pulmonary 24 HR Interval Summary Free Text/Dictation Patient condition is stable. But he still complains of cough without any sputum production. Denies any wheezing, chest pain, fever chills. General exam; elderly male, currently in no distress. Exam/Review of Systems Vital Signs Vitals Vital Signs Date Time Temp Pulse Resp B/P Pulse Ox O2 Delivery O2 Flow Rate FiO2 01/17/17 12:07 98.2 82 20 151/73 92 01/17/17 09:00 Nasal Cannula 5.0 01/16/17 07:53 21 Intake and Output 01/16/17 01/16/17 01/17/17 15:00 23:00 07:00 Intake Total 1100 ml 1270 ml Output Total 1300 ml 2000 ml Balance -200 ml -730 ml Exam HEENT exam; supple neck, no JVD. No lymphadenopathy. Midline trachea. No thyromegaly. Pharynx is clear. Patient has fair dentition. Pupils are midsize and reactive to light. Chest examination; diminished breath sound bilaterally. No added sounds. S1- S2 audible, no murmurs. Regular rhythm. Abdomen examination; soft, nontender. There are multiple upper quadrant scars. Which all appeared well-healed. Bowel sounds audible. Extremity exam is; no peripheral edema. [employer] examination; no focal deficit. Results Result Diagram: 01/17/17 0725 01/17/17 1030 Results 24 hrs Laboratory Tests Test 01/16/17 17:38 01/16/17 20:35 01/17/17 01:24 01/17/17 07:25 Bedside Glucose 184 220 313 H White Blood Count 10.4 Red Blood Count 4.01 L Hemoglobin 10.8 L Hematocrit 34.4 L Mean Corpuscular Volume 85.8 Mean Corpuscular Hemoglobin 26.9 L Mean Corpuscular Hemoglobin Concent 31.4 L Red Cell Distribution Width 17.0 H Platelet Count 176 Mean Platelet Volume 9.3 Neutrophils % 90.7 H Lymphocytes % 1.3 L Monocytes % 4.2 Eosinophils % 0.0 Basophils % 0.3 Nucleated Red Blood Cells % 0.0 Neutrophils # 9.4 H Lymphocytes # 0.1 L Monocytes # 0.4 Eosinophils # 0.0 Basophils # 0.0 Nucleated Red Blood Cells # 0.0 Sodium Level 133 L Potassium Level 4.0 Chloride Level 95 L Carbon Dioxide Level 32 H Anion Gap 10 Blood Urea Nitrogen 38 H Creatinine 1.15 Glucose Level 365 H Calcium Level 8.3 L Total Bilirubin 0.6 Direct Bilirubin 0.00 Indirect Bilirubin 0.6 Aspartate Amino Transf (AST/SGOT) 21 Alanine Aminotransferase (ALT/SGPT) 28 Alkaline Phosphatase 76 Total Protein 5.4 L Albumin 2.8 L Test 01/17/17 08:27 01/17/17 10:30 01/17/17 12:16 Bedside Glucose 406 *H 311 H Glucose Level 381 H Medications Medications Current Medications Ondansetron HCl (Zofran Inj) 4 mg Q6H PRN IV NAUSEA AND/OR VOMITING; Start at 06:30 Acetaminophen (Tylenol Tab) 650 mg Q6H PRN PO PAIN LEVEL 1-3 OR FEVER; Start at 06:30 Acetaminophen/ Hydrocodone Bitart ([place] (5/325)) 1 tab Q6H PRN PO MODERATE PAIN LEVEL 4-6; Start 01/12/17 at 06:30 Morphine Sulfate (morphine) 2 mg Q4H PRN IV SEVERE PAIN LEVEL 7-10 Last administered on 01/14/17 14:55; Admin Dose 2 MG; Start 01/12/17 at 06:30 Docusate Sodium (Colace) 100 mg Q12H PRN PO CONSTIPATION Last administered on 05:35; Admin Dose 100 MG; Start 01/12/17 at 06:30 Magnesium Hydroxide (Milk Of Mag) 30 ml DAILY PRN PO CONSTIPATION; Start at 06:30 Sodium Biphosphate/ Sodium Phosphate (Fleet Enema) 133 ml DAILY PRN [place] CONSTIPATION; Start 01/12/17 at 06:30 Pantoprazole 40 mg 40 mg DAILY@06 IV Last administered on 01/17/17 06:28; Admin Dose 40 MG; Start 01/13/17 at 06:00 Sodium Chloride (1/2 NS) 1,000 ml @ 30 mls/hr Q24H IV Last administered on 08:56; Admin Dose 30 MLS/HR; Start 01/12/17 at 06:08 Lorazepam 0.5 mg 0.5 mg Q6H PRN IV ANXIETY; Start 01/12/17 at 06:30 Piperacillin Sod/ Tazobactam Sod (Zosyn 3.375gm/ 100 ml (Pmx)) 100 ml @ 200 mls /hr Q6 IVPB Last administered on 01/17/17 12:43; Admin Dose 200 MLS/HR; Start 01/12/17 at 12:00 Vancomycin HCl (Vanco Iv Per Pharmacy) VANCOMYCIN PER PHARMACY NOTE XX ; Start 01/12/17 at 06:30 Hydralazine HCl (Apresoline) 10 mg Q6H PRN IV ELEVATED BLOOD PRESSURE Last administered on 01/14/17 08:01; Admin Dose 10 MG; Start 01/12/17 at 06:30 Clonidine (Catapres) 0.1 mg Q6H PRN PO ELEVATED BLOOD PRESSURE; Start 01/12/17 at 06:30 Nitroglycerin (Nitroglycerin (Sl Tab) 0.4 Mg) 1 tab Q5M PRN SL ANGINA; Start at 06:30 Atorvastatin Calcium (Lipitor) 40 mg QHS PO Last administered on 01/16/17 20: 20; Admin Dose 40 MG; Start 01/13/17 at 21:00 Cyclosporine (Neoral) 100 mg BID PO Last administered on 01/17/17 08:45; Admin Dose 100 MG; Start 01/13/17 at 09:00 Dapsone (Dapsone) 100 mg DAILY PO Last administered on 01/15/17 08:07; Admin Dose 100 MG; Start 01/13/17 at 09:00 Dutasteride (Avodart) 0.5 mg DAILY PO Last administered on 01/17/17 08:48; Admin Dose 0.5 MG; Start 01/13/17 at 09:00 Fluticasone Propionate (Flonase 0.05% Nasal) 1 spray DAILY NASAL Last administered on 01/17/17 08:48; Admin Dose 1 SPRAY; Start 01/13/17 at 09:00 Ipratropium [place] (Atrovent Hfa) 2 puff QID INH Last administered on 12:44; Admin Dose 2 PUFF; Start 01/13/17 at 09:00 Valganciclovir (Valcyte) 450 mg BID PO Last administered on 01/17/17 08:47; Admin Dose 450 MG; Start 01/12/17 at 23:00 Mycophenolate Mofetil (Cellcept) 1,000 mg BID PO Last administered on 08:46; Admin Dose 1,000 MG; Start 01/13/17 at 02:45 Magnesium Oxide (Mag-Ox 400) 400 mg BID PO Last administered on 01/17/17 08:47 ; Admin Dose 400 MG; Start 01/13/17 at 21:00 Diagnostic Test (Pha) (Accucheck) 1 ea 02 XX Last administered on 01/17/17 01: 50; Admin Dose 1 EA; Start 01/14/17 at 02:00 Miscellaneous Information 1 ea NOTE XX ; Start 01/13/17 at 15:00 Glucose (Glutose) 15 gm Q15M PRN PO DECREASED GLUCOSE; Start 01/13/17 at 15:00 Glucose (Glutose) 22.5 gm Q15M PRN PO DECREASED GLUCOSE; Start 01/13/17 at 15: 00 Dextrose (D50w Syringe) 25 ml Q15M PRN IV DECREASED GLUCOSE; Start 01/13/17 at 15:00 Dextrose (D50w Syringe) 50 ml Q15M PRN IV DECREASED GLUCOSE; Start 01/13/17 at 15:00 Glucagon (Glucagen) 1 mg Q15M PRN IM DECREASED GLUCOSE; Start 01/13/17 at 15:00 Glucose 15 gm 15 gm Q15M PRN BUCCAL DECREASED GLUCOSE; Start 01/13/17 at 15:00 Vancomycin HCl (Vancocin) 250 ml @ 125 mls/hr Q12H IVPB Last administered on 03:21; Admin Dose 125 MLS/HR; Start 01/14/17 at 03:00 Lisinopril (Zestril) 40 mg DAILY PO Last administered on 01/17/17 09:48; Admin Dose 40 MG; Start 01/14/17 at 11:00 Furosemide (Lasix) 20 mg DAILY IV Last administered on 01/17/17 08:45; Admin Dose 20 MG; Start 01/15/17 at 09:00 Methylprednisolone Sodium Succinate (Solu-Medrol) 40 mg Q8 IV Last administered on 01/17/17 06:28; Admin Dose 40 MG; Start 01/14/17 at 14:00 Fluconazole (Diflucan) 100 mg DAILY PO Last administered on 01/17/17 08:46; Admin Dose 100 MG; Start 01/15/17 at 12:00 Nystatin (Nystatin Susp) 5 ml QID PO Last administered on 01/17/17 12:44; Admin Dose 5 ML; Start 01/15/17 at 13:00 Salmeterol Xinafoate/ Fluticasone (Advair 250/50 Diskus) 1 inh BID INH Last administered on 01/17/17 08:47; Admin Dose 1 INH; Start 01/15/17 at 14:30 Tiotropium [place] (Spiriva) 1 inh DAILY INH Last administered on 01/17/17 08: 46; Admin Dose 1 INH; Start 01/15/17 at 14:30 Tamsulosin HCl (Flomax) 0.4 mg HS PO Last administered on 01/15/17 20:23; Admin Dose 0.4 MG; Start 01/15/17 at 21:00 Metoprolol Tartrate (Lopressor) 25 mg BID PO Last administered on 01/17/17 08: 47; Admin Dose 25 MG; Start 01/16/17 at 21:00 Insulin Glargine (Lantus) 42 unit BID SC ; Start 01/18/17 at 09:00 Miscellaneous Information (*Rx Drug Level Order Reminder*) VANCOMYCIN TROUGH AT 0200 ONCE ONCE XX ; Start 01/18/17 at 02:00; Stop 01/18/17 at 02:01 SAMAN MURRAY Jan 17, 2017 14:38
[2017-01-17 16:50] LABS: INR 3.69; PROTIME 37.2 Sec (12.2-14.2); PT RATIO 2.9
[2017-01-17 16:51] LABS: PARTIAL THROMBOPLASTIN TIME 35.5 Sec (25.0-35.0)
--- NOTE | 2017-01-17 17:05 | CONS ---
Date/Time of Note Date/Time of Note DATE: 01/17/17 TIME: 17:05 Assessment/Plan Assessment/Plan Chief Complaint/Hosp Course ID PROGRESS NOTE CURRENT ABX=> Vanco IV, Zosyn, Diflucan 24H INTERVAL SUMMARY * Resting comfortably on supplemental O2 via nc * Frequent BMs noted over past 48 Hrs PHYSICAL EXAMINATION: GENERAL:VSS, NAD HEENT: Unremarkable NECK: Supple, trachea midline. CHEST: Rise symmetrical, without dyspnea on observation HEART: Pulse RRR ABDOMEN: soft EXTREMITIES: Warm ID ASSESSMENT 71 yo M w/PMHx of cirrhosis -> s/p Liver Transplant 1989 on immunosuppressive Rx admit with: 1. Sepsis with fevers on admission = RESOLVED 2. Pneumonia => GNR + Yeast ?Aspiration PNA? RESPIRATORY CULTURE Final Organism 1 ALLEN ALBICANS QUANTITY 2+ Organism 2 ENTEROBACTER CLOACAE QUANTITY 1+ 3. Hypoxemic respiratory failure. 4. History of primary biliary 5. Diabetes mellitus. 6. Urinary retention=> s/p [place] 7. 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 Continue current ABX=> E.[place]ae does not respond to Cephalosporins; Zosyn vs Levaquin are appropriate 2. Send stool for C.Diff toxin . Problems: Consultation Date/Type/Reason Admit Date/Time Jan 12, 2017 at 05:55 Initial Consult Date Type of Consultation: ID Exam/Review of Systems Vital Signs Vitals Vital Signs Date Time Temp Pulse Resp B/P Pulse Ox O2 Delivery O2 Flow Rate FiO2 01/17/17 16:29 98.2 74 20 121/69 92 01/17/17 14:28 Nasal Cannula 3.0 01/16/17 07:53 21 Intake and Output 01/16/17 01/16/17 01/17/17 15:00 23:00 07:00 Intake Total 1100 ml 1270 ml Output Total 1300 ml 2000 ml Balance -200 ml -730 ml Results Result Diagram: 01/17/17 0725 01/17/17 1030 Results 24 hrs Laboratory Tests Test 01/16/17 17:38 01/16/17 20:35 01/17/17 01:24 01/17/17 07:25 Bedside Glucose 184 220 313 H White Blood Count 10.4 Red Blood Count 4.01 L Hemoglobin 10.8 L Hematocrit 34.4 L Mean Corpuscular Volume 85.8 Mean Corpuscular Hemoglobin 26.9 L Mean Corpuscular Hemoglobin Concent 31.4 L Red Cell Distribution Width 17.0 H Platelet Count 176 Mean Platelet Volume 9.3 Neutrophils % 90.7 H Lymphocytes % 1.3 L Monocytes % 4.2 Eosinophils % 0.0 Basophils % 0.3 Nucleated Red Blood Cells % 0.0 Neutrophils # 9.4 H Lymphocytes # 0.1 L Monocytes # 0.4 Eosinophils # 0.0 Basophils # 0.0 Nucleated Red Blood Cells # 0.0 Sodium Level 133 L Potassium Level 4.0 Chloride Level 95 L Carbon Dioxide Level 32 H Anion Gap 10 Blood Urea Nitrogen 38 H Creatinine 1.15 Glucose Level 365 H Calcium Level 8.3 L Total Bilirubin 0.6 Direct Bilirubin 0.00 Indirect Bilirubin 0.6 Aspartate Amino Transf (AST/SGOT) 21 Alanine Aminotransferase (ALT/SGPT) 28 Alkaline Phosphatase 76 Total Protein 5.4 L Albumin 2.8 L Test 01/17/17 08:27 01/17/17 10:30 01/17/17 12:16 01/17/17 16:20 Bedside Glucose 406 *H 311 H Glucose Level 381 H Prothrombin Time Pending Prothrombin Time Ratio 2.9 INR International Normalized Ratio 3.69 Activated Partial Thromboplast Time 35.5 H Medications Medications Current Medications Ondansetron HCl (Zofran Inj) 4 mg Q6H PRN IV NAUSEA AND/OR VOMITING; Start at 06:30 Acetaminophen (Tylenol Tab) 650 mg Q6H PRN PO PAIN LEVEL 1-3 OR FEVER; Start at 06:30 Acetaminophen/ Hydrocodone Bitart ([place] (5/325)) 1 tab Q6H PRN PO MODERATE PAIN LEVEL 4-6; Start 01/12/17 at 06:30 Morphine Sulfate (morphine) 2 mg Q4H PRN IV SEVERE PAIN LEVEL 7-10 Last administered on 01/14/17 14:55; Admin Dose 2 MG; Start 01/12/17 at 06:30 Docusate Sodium (Colace) 100 mg Q12H PRN PO CONSTIPATION Last administered on 05:35; Admin Dose 100 MG; Start 01/12/17 at 06:30 Magnesium Hydroxide (Milk Of Mag) 30 ml DAILY PRN PO CONSTIPATION; Start at 06:30 Sodium Biphosphate/ Sodium Phosphate (Fleet Enema) 133 ml DAILY PRN [place] CONSTIPATION; Start 01/12/17 at 06:30 Pantoprazole 40 mg 40 mg DAILY@06 IV Last administered on 01/17/17 06:28; Admin Dose 40 MG; Start 01/13/17 at 06:00 Sodium Chloride (1/2 NS) 1,000 ml @ 30 mls/hr Q24H IV Last administered on 08:56; Admin Dose 30 MLS/HR; Start 01/12/17 at 06:08 Lorazepam 0.5 mg 0.5 mg Q6H PRN IV ANXIETY; Start 01/12/17 at 06:30 Piperacillin Sod/ Tazobactam Sod (Zosyn 3.375gm/ 100 ml (Pmx)) 100 ml @ 200 mls /hr Q6 IVPB Last administered on 01/17/17 12:43; Admin Dose 200 MLS/HR; Start 01/12/17 at 12:00 Vancomycin HCl (Vanco Iv Per Pharmacy) VANCOMYCIN PER PHARMACY NOTE XX ; Start 01/12/17 at 06:30 Hydralazine HCl (Apresoline) 10 mg Q6H PRN IV ELEVATED BLOOD PRESSURE Last administered on 01/14/17 08:01; Admin Dose 10 MG; Start 01/12/17 at 06:30 Clonidine (Catapres) 0.1 mg Q6H PRN PO ELEVATED BLOOD PRESSURE; Start 01/12/17 at 06:30 Nitroglycerin (Nitroglycerin (Sl Tab) 0.4 Mg) 1 tab Q5M PRN SL ANGINA; Start at 06:30 Atorvastatin Calcium (Lipitor) 40 mg QHS PO Last administered on 01/16/17 20: 20; Admin Dose 40 MG; Start 01/13/17 at 21:00 Cyclosporine (Neoral) 100 mg BID PO Last administered on 01/17/17 08:45; Admin Dose 100 MG; Start 01/13/17 at 09:00 Dapsone (Dapsone) 100 mg DAILY PO Last administered on 01/15/17 08:07; Admin Dose 100 MG; Start 01/13/17 at 09:00 Dutasteride (Avodart) 0.5 mg DAILY PO Last administered on 01/17/17 08:48; Admin Dose 0.5 MG; Start 01/13/17 at 09:00 Fluticasone Propionate (Flonase 0.05% Nasal) 1 spray DAILY NASAL Last administered on 01/17/17 08:48; Admin Dose 1 SPRAY; Start 01/13/17 at 09:00 Ipratropium [place] (Atrovent Hfa) 2 puff QID INH Last administered on 12:44; Admin Dose 2 PUFF; Start 01/13/17 at 09:00 Valganciclovir (Valcyte) 450 mg BID PO Last administered on 01/17/17 08:47; Admin Dose 450 MG; Start 01/12/17 at 23:00 Mycophenolate Mofetil (Cellcept) 1,000 mg BID PO Last administered on 08:46; Admin Dose 1,000 MG; Start 01/13/17 at 02:45 Magnesium Oxide (Mag-Ox 400) 400 mg BID PO Last administered on 01/17/17 08:47 ; Admin Dose 400 MG; Start 01/13/17 at 21:00 Diagnostic Test (Pha) (Accucheck) 1 ea 02 XX Last administered on 01/17/17 01: 50; Admin Dose 1 EA; Start 01/14/17 at 02:00 Miscellaneous Information 1 ea NOTE XX ; Start 01/13/17 at 15:00 Glucose (Glutose) 15 gm Q15M PRN PO DECREASED GLUCOSE; Start 01/13/17 at 15:00 Glucose (Glutose) 22.5 gm Q15M PRN PO DECREASED GLUCOSE; Start 01/13/17 at 15: 00 Dextrose (D50w Syringe) 25 ml Q15M PRN IV DECREASED GLUCOSE; Start 01/13/17 at 15:00 Dextrose (D50w Syringe) 50 ml Q15M PRN IV DECREASED GLUCOSE; Start 01/13/17 at 15:00 Glucagon (Glucagen) 1 mg Q15M PRN IM DECREASED GLUCOSE; Start 01/13/17 at 15:00 Glucose 15 gm 15 gm Q15M PRN BUCCAL DECREASED GLUCOSE; Start 01/13/17 at 15:00 Vancomycin HCl (Vancocin) 250 ml @ 125 mls/hr Q12H IVPB Last administered on 15:00; Admin Dose 125 MLS/HR; Start 01/14/17 at 03:00 Lisinopril (Zestril) 40 mg DAILY PO Last administered on 01/17/17 09:48; Admin Dose 40 MG; Start 01/14/17 at 11:00 Furosemide (Lasix) 20 mg DAILY IV Last administered on 01/17/17 08:45; Admin Dose 20 MG; Start 01/15/17 at 09:00 Methylprednisolone Sodium Succinate (Solu-Medrol) 40 mg Q8 IV Last administered on 01/17/17 14:59; Admin Dose 40 MG; Start 01/14/17 at 14:00 Fluconazole (Diflucan) 100 mg DAILY PO Last administered on 01/17/17 08:46; Admin Dose 100 MG; Start 01/15/17 at 12:00 Nystatin (Nystatin Susp) 5 ml QID PO Last administered on 01/17/17 12:44; Admin Dose 5 ML; Start 01/15/17 at 13:00 Salmeterol Xinafoate/ Fluticasone (Advair 250/50 Diskus) 1 inh BID INH Last administered on 01/17/17 08:47; Admin Dose 1 INH; Start 01/15/17 at 14:30 Tiotropium [place] (Spiriva) 1 inh DAILY INH Last administered on 01/17/17 08: 46; Admin Dose 1 INH; Start 01/15/17 at 14:30 Tamsulosin HCl (Flomax) 0.4 mg HS PO Last administered on 01/15/17 20:23; Admin Dose 0.4 MG; Start 01/15/17 at 21:00 Metoprolol Tartrate (Lopressor) 25 mg BID PO Last administered on 01/17/17 08: 47; Admin Dose 25 MG; Start 01/16/17 at 21:00 Insulin Glargine (Lantus) 42 unit BID SC ; Start 01/18/17 at 09:00 Miscellaneous Information (*Rx Drug Level Order Reminder*) VANCOMYCIN TROUGH AT 0200 ONCE ONCE XX ; Start 01/18/17 at 02:00; Stop 01/18/17 at 02:01 BUDDY SHIRLEY NP Jan 17, 2017 17:05
[2017-01-17] MEDS: ATORVASTATIN 40 MG TAB PO SCH (20:32)
[2017-01-17] MEDS: TAMSULOSIN (SR) 0.4 MG CAP PO SCH (20:32)
[2017-01-18] VITALS (14 sets, daily range): BP systolic 150–187; BP diastolic 52–88; PULSE 69–83; RESP 18–24
[2017-01-18] MEDS: ACCU-CHEK XX SCH (02:26)
[2017-01-18] MEDS: VANCOMYCIN 1 GM in NS 250 ML IVPB SCH ×2 (03:01→14:35)
[2017-01-18] MEDS: METHYLPREDNISOLONE 40 MG INJ IV SCH ×3 (05:06→22:23)
[2017-01-18] MEDS: PANTOPRAZOLE 40 MG INJ IV SCH (05:06)
[2017-01-18] MEDS: PIPER-TAZO 3.375 GM IV (PMX) 100 ML IVPB SCH ×3 (05:06→17:30)
[2017-01-18] MEDS: ALBUTEROL/IPRATROPIUM (NEB) 3 ML AMP HHN SCH ×3 (08:00→20:00)
[2017-01-18 08:07] LABS: ADD SCAN DIFF NO
[2017-01-18 08:11] LABS: ABNORMAL IP MESSAGE 1; BASOPHILS % 0.1 % (0.0-2.0); HEMATOCRIT 36.9 % (42.0-52.0); HEMOGLOBIN 11.4 g/dl (14.0-18.0); LYMPHOCYTES # 0.2 10^3/ul (0.8-2.9); LYMPHOCYTES % 1.9 % (15.0-51.0); MEAN CORPUSCULAR HEMOGLOBIN 26.6 pg (29.0-33.0); MEAN CORPUSCULAR HGB CONC 30.9 g/dl (32.0-37.0); MEAN CORPUSCULAR VOLUME 86.2 fl (82.0-101.0); MEAN PLATELET VOLUME 9.5 fl (7.4-10.4); MONOCYTE # 0.3 10^3/ul (0.3-0.9); MONOCYTES % 3.2 % (0.0-11.0); NEUTROPHIL # 8.5 10^3/ul (1.6-7.5); NEUTROPHILS % 88.9 % (39.0-77.0); PLATELET COUNT 163 10^3/UL (140-415); RED BLOOD COUNT 4.28 10^6/ul (4.70-6.10); RED CELL DISTRIBUTION WIDTH 17.2 % (11.5-14.5); WHITE BLOOD COUNT 9.6 10^3/ul (4.8-10.8)
[2017-01-18 08:26] LABS: INR 2.6; PROTIME 28.2 Sec (12.2-14.2); PT RATIO 2.2
[2017-01-18 08:36] LABS: POTASSIUM 4.3 mmol/L (3.5-5.1)
[2017-01-18 08:39] LABS: CALCIUM 8.4 mg/dl (8.4-10.2); CREATININE 1.06 mg/dl (0.61-1.24)
[2017-01-18] MEDS: SALMETEROL/FLUTICASONE 250/50 INHA INH SCH ×2 (08:57→21:32)
[2017-01-18] MEDS: IPRATROPIUM (HFA) 12.9 GM INHALER INH SCH ×4 (08:57→21:32)
[2017-01-18] MEDS: SOD CHLORIDE 0.45% 1,000 ML IV SCH (08:57)
[2017-01-18] MEDS: CYCLOSPORINE MICROEMULS 100 MG CAP PO SCH ×2 (08:58→21:42)
[2017-01-18] MEDS: MYCOPHENOLATE 250 MG CAP PO SCH ×2 (08:58→21:13)
[2017-01-18] MEDS: TIOTROPIUM 18 MCG CAPSULE INHA DEV INH SCH (08:58)
[2017-01-18] MEDS: FLUTICASONE 0.05% 16 GM NAS SPRAY NASAL SCH (08:58)
[2017-01-18] MEDS: VALGANCICLOVIR 450 MG TAB PO SCH ×2 (08:58→21:14)
[2017-01-18] MEDS: LISINOPRIL 20 MG TAB PO SCH (08:59)
[2017-01-18] MEDS: NYSTATIN SUSP 5 ML CUP PO SCH ×4 (08:59→21:13)
[2017-01-18] MEDS: FLUCONAZOLE 100 MG TAB PO SCH (08:59)
[2017-01-18] MEDS: METOPROLOL 25 MG TAB PO SCH ×2 (08:59→21:15)
[2017-01-18] MEDS: DAPSONE 100 MG TAB PO SCH (08:59)
[2017-01-18] MEDS: FUROSEMIDE 20 MG INJ IV SCH (09:00)
[2017-01-18] MEDS: DUTASTERIDE 0.5 MG CAP PO SCH (09:08)
[2017-01-18] MEDS: MAGNESIUM OXIDE 400 MG TAB PO SCH ×2 (09:08→21:42)
[2017-01-18] MEDS: INSULIN GLARGINE [LANtus] 3 ML PEN SC SCH ×2 (09:09→21:18)
[2017-01-18] MEDS: INSULIN ASPART [NOVOLOG] 3 ML PEN SC SCH ×7 (09:11→21:19)
--- NOTE | 2017-01-18 11:26 | PN ---
Date/Time of Note Date/Time of Note DATE: 01/18/17 TIME: 11:19 Assessment/Plan VTE Prophylaxis VTE Prophylaxis Intervention: SCD's VTE Contraindication Reason: blood coagulation disorder Lines/Catheters IV Catheter Type (from Nrs): Peripheral IV Urinary Cath still in place: Yes Reason Cath still needed: other (indicate) Assessment/Plan Assessment/Plan 71-year-old male coming in with hypoxia and fever and weakness with signs of sepsis with lactic acidosis, 1. Sepsis + Lactic acidosis 2/2 #2: resolved 2. Acute Respiratory failure: improved, Oxygen requirement between room air and 5L Echo wasn't impressive with Ef 55% and no significant valvular deficit 3. Bilateral Pneumonia (Recurrent versus incompletely treated) Patient was treated for similar about 6 weeks ago Patient was discharged on Dapsone for PCP prophylaxis / family refusing dapsone 2/2 side effect of elevated methemoglobin 4. 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 Hypertension: control still suboptimal 6. Antiphospholipid antibody syndrome + hx of DVT for which patient was on coumadin 7. Supratherapeutic INR: improved 8. Dyslipidemia 9. BPH with Urinary retention likely 2/2 anticholinergics and Worsening hematuria: 9. Diabetes type 2 on insulin therapy 10. Mild thrombocytopenia: resolved 11. Oral thrush PLAN: * We have to reverse Coumadin with Vit K and FFP in view of hematuria * Wean off Oxygen therapy * Continue broad spectrum abx therapy / bronchodilator therapy / supplemental O2 / gentle lasix diuresis * Continue all antirejection meds * Continue to titrate meds for better BP control * Diabetic diet / SSI / Lantus . NovoLog/ Tradjenta * Supportive care * Patient will need to be discharged on long course of abx for pneumonia, will defer to ID * Patient is to followup with his hepatology team for choice of drug to replace dapsone * Possible discharge on Thursday with mason per Dr Banks if oxygen requirements are less and hematuria is resolved. Gastrointestinal prophylaxis, proton pump inhibitor. Deep venous thrombosis prophylaxis: SCDs / ambulation Subjective 24 Hr Interval Summary Free Text/Dictation * Patient having significant hematuria * Mason had to be replaced * continues to request discharge * still requiring 5L o2 Exam/Review of Systems Vital Signs Vitals Vital Signs Date Time Temp Pulse Resp B/P Pulse Ox O2 Delivery O2 Flow Rate FiO2 01/18/17 08:10 69 3/26/17 07:52 Nasal Cannula 5.0 01/18/17 07:44 97.9 24 180/88 92 01/16/17 07:53 21 Intake and Output 01/17/17 01/17/17 01/18/17 15:00 23:00 07:00 Intake Total 2710 ml 1520 ml Output Total 2000 ml 2850 ml Balance 710 ml -1330 ml Exam Constitutional: alert, oriented, No distress Psych: confusion (intermittent) Head: atraumatic, normocephalic Eyes: PERRL ENMT: mucosa pink and moist Neck: supple Respiratory: crackles/rales, diminished breath sounds Cardiovascular: murmurs/extra sounds, No regular rate and rhythm Gastrointestinal: bowel sounds, non-tender, soft Extremities: edema Neurological: No so confused today Genitourinary - Male: other (mason with bloody urine) Results Result Diagram: 01/18/17 0720 01/18/17 0720 Results 24 hrs Laboratory Tests Test 01/17/17 12:16 01/17/17 16:20 01/17/17 17:18 01/17/17 20:37 Bedside Glucose 311 H 86 195 Prothrombin Time 37.2 #H Prothrombin Time Ratio 2.9 INR International Normalized Ratio 3.69 Activated Partial Thromboplast Time 35.5 H Test 01/18/17 01:54 01/18/17 02:21 01/18/17 07:20 01/18/17 08:19 Vancomycin Level Trough 12.7 Bedside Glucose 291 H 338 H White Blood Count 9.6 Red Blood Count 4.28 L Hemoglobin 11.4 L Hematocrit 36.9 L Mean Corpuscular Volume 86.2 Mean Corpuscular Hemoglobin 26.6 L Mean Corpuscular Hemoglobin Concent 30.9 L Red Cell Distribution Width 17.2 H Platelet Count 163 Mean Platelet Volume 9.5 Neutrophils % 88.9 H Lymphocytes % 1.9 L Monocytes % 3.2 Eosinophils % 0.0 Basophils % 0.1 Nucleated Red Blood Cells % 0.0 Neutrophils # 8.5 H Lymphocytes # 0.2 L Monocytes # 0.3 Eosinophils # 0.0 Basophils # 0.0 Nucleated Red Blood Cells # 0.0 Prothrombin Time 28.2 #H Prothrombin Time Ratio 2.2 INR International Normalized Ratio 2.60 Activated Partial Thromboplast Time 34.0 Sodium Level 133 L Potassium Level 4.3 Chloride Level 95 L Carbon Dioxide Level 33 H Anion Gap 9 Blood Urea Nitrogen 40 H Creatinine 1.06 Glucose Level 370 H Calcium Level 8.4 Medications Medications Current Medications Ondansetron HCl (Zofran Inj) 4 mg Q6H PRN IV NAUSEA AND/OR VOMITING; Start at 06:30 Acetaminophen (Tylenol Tab) 650 mg Q6H PRN PO PAIN LEVEL 1-3 OR FEVER; Start at 06:30 Acetaminophen/ Hydrocodone Bitart ([place] (5/325)) 1 tab Q6H PRN PO MODERATE PAIN LEVEL 4-6; Start 01/12/17 at 06:30 Morphine Sulfate (morphine) 2 mg Q4H PRN IV SEVERE PAIN LEVEL 7-10 Last administered on 01/14/17 14:55; Admin Dose 2 MG; Start 01/12/17 at 06:30 Docusate Sodium (Colace) 100 mg Q12H PRN PO CONSTIPATION Last administered on 05:35; Admin Dose 100 MG; Start 01/12/17 at 06:30 Magnesium Hydroxide (Milk Of Mag) 30 ml DAILY PRN PO CONSTIPATION; Start at 06:30 Sodium Biphosphate/ Sodium Phosphate (Fleet Enema) 133 ml DAILY PRN [place] CONSTIPATION; Start 01/12/17 at 06:30 Pantoprazole 40 mg 40 mg DAILY@06 IV Last administered on 01/18/17 05:06; Admin Dose 40 MG; Start 01/13/17 at 06:00 Sodium Chloride (1/2 NS) 1,000 ml @ 30 mls/hr Q24H IV Last administered on 08:57; Admin Dose 30 MLS/HR; Start 01/12/17 at 06:08 Lorazepam 0.5 mg 0.5 mg Q6H PRN IV ANXIETY; Start 01/12/17 at 06:30 Piperacillin Sod/ Tazobactam Sod (Zosyn 3.375gm/ 100 ml (Pmx)) 100 ml @ 200 mls /hr Q6 IVPB Last administered on 01/18/17 05:06; Admin Dose 200 MLS/HR; Start 01/12/17 at 12:00 Vancomycin HCl (Vanco Iv Per Pharmacy) VANCOMYCIN PER PHARMACY NOTE XX ; Start 01/12/17 at 06:30 Hydralazine HCl (Apresoline) 10 mg Q6H PRN IV ELEVATED BLOOD PRESSURE Last administered on 01/14/17 08:01; Admin Dose 10 MG; Start 01/12/17 at 06:30 Clonidine (Catapres) 0.1 mg Q6H PRN PO ELEVATED BLOOD PRESSURE; Start 01/12/17 at 06:30 Nitroglycerin (Nitroglycerin (Sl Tab) 0.4 Mg) 1 tab Q5M PRN SL ANGINA; Start at 06:30 Atorvastatin Calcium (Lipitor) 40 mg QHS PO Last administered on 01/17/17 20: 32; Admin Dose 40 MG; Start 01/13/17 at 21:00 Cyclosporine (Neoral) 100 mg BID PO Last administered on 01/18/17 08:58; Admin Dose 100 MG; Start 01/13/17 at 09:00 Dapsone (Dapsone) 100 mg DAILY PO Last administered on 01/15/17 08:07; Admin Dose 100 MG; Start 01/13/17 at 09:00 Dutasteride (Avodart) 0.5 mg DAILY PO Last administered on 01/18/17 09:08; Admin Dose 0.5 MG; Start 01/13/17 at 09:00 Fluticasone Propionate (Flonase 0.05% Nasal) 1 spray DAILY NASAL Last administered on 01/18/17 08:58; Admin Dose 1 SPRAY; Start 01/13/17 at 09:00 Ipratropium [place] (Atrovent Hfa) 2 puff QID INH Last administered on 08:57; Admin Dose 2 PUFF; Start 01/13/17 at 09:00 Valganciclovir (Valcyte) 450 mg BID PO Last administered on 01/18/17 08:58; Admin Dose 450 MG; Start 01/12/17 at 23:00 Mycophenolate Mofetil (Cellcept) 1,000 mg BID PO Last administered on 08:58; Admin Dose 1,000 MG; Start 01/13/17 at 02:45 Magnesium Oxide (Mag-Ox 400) 400 mg BID PO Last administered on 01/18/17 09:08 ; Admin Dose 400 MG; Start 01/13/17 at 21:00 Diagnostic Test (Pha) (Accucheck) 1 ea 02 XX Last administered on 01/18/17 02: 26; Admin Dose 1 EA; Start 01/14/17 at 02:00 Miscellaneous Information 1 ea NOTE XX ; Start 01/13/17 at 15:00 Glucose (Glutose) 15 gm Q15M PRN PO DECREASED GLUCOSE; Start 01/13/17 at 15:00 Glucose (Glutose) 22.5 gm Q15M PRN PO DECREASED GLUCOSE; Start 01/13/17 at 15: 00 Dextrose (D50w Syringe) 25 ml Q15M PRN IV DECREASED GLUCOSE; Start 01/13/17 at 15:00 Dextrose (D50w Syringe) 50 ml Q15M PRN IV DECREASED GLUCOSE; Start 01/13/17 at 15:00 Glucagon (Glucagen) 1 mg Q15M PRN IM DECREASED GLUCOSE; Start 01/13/17 at 15:00 Glucose 15 gm 15 gm Q15M PRN BUCCAL DECREASED GLUCOSE; Start 01/13/17 at 15:00 Vancomycin HCl (Vancocin) 250 ml @ 125 mls/hr Q12H IVPB Last administered on 03:01; Admin Dose 125 MLS/HR; Start 01/14/17 at 03:00 Lisinopril (Zestril) 40 mg DAILY PO Last administered on 01/18/17 08:59; Admin Dose 40 MG; Start 01/14/17 at 11:00 Furosemide (Lasix) 20 mg DAILY IV Last administered on 01/18/17 09:00; Admin Dose 20 MG; Start 01/15/17 at 09:00 Methylprednisolone Sodium Succinate (Solu-Medrol) 40 mg Q8 IV Last administered on 01/18/17 05:06; Admin Dose 40 MG; Start 01/14/17 at 14:00 Fluconazole (Diflucan) 100 mg DAILY PO Last administered on 01/18/17 08:59; Admin Dose 100 MG; Start 01/15/17 at 12:00 Nystatin (Nystatin Susp) 5 ml QID PO Last administered on 01/18/17 08:59; Admin Dose 5 ML; Start 01/15/17 at 13:00 Salmeterol Xinafoate/ Fluticasone (Advair 250/50 Diskus) 1 inh BID INH Last administered on 01/18/17 08:57; Admin Dose 1 INH; Start 01/15/17 at 14:30 Tiotropium [place] (Spiriva) 1 inh DAILY INH Last administered on 01/18/17 08: 58; Admin Dose 1 INH; Start 01/15/17 at 14:30 Tamsulosin HCl (Flomax) 0.4 mg HS PO Last administered on 01/15/17 20:23; Admin Dose 0.4 MG; Start 01/15/17 at 21:00 Metoprolol Tartrate (Lopressor) 25 mg BID PO Last administered on 01/18/17 08: 59; Admin Dose 25 MG; Start 01/16/17 at 21:00 Insulin Glargine (Lantus) 42 unit BID SC Last administered on 01/18/17 09:09; Admin Dose 42 UNIT; Start 01/18/17 at 09:00 FRANSISCO CAM Jan 18, 2017 11:26
[2017-01-18] MEDS: LINAGLIPTIN 5 MG TABLET PO SCH (12:40)
--- NOTE | 2017-01-18 14:33 | CONS ---
Date/Time of Note Date/Time of Note DATE: 01/18/17 TIME: 14:32 Assessment/Plan Assessment/Plan Chief Complaint/Hosp Course ID PROGRESS NOTE CURRENT ABX=> Vanco IV, Zosyn, Diflucan 24H INTERVAL SUMMARY * Doing well sitting up eating lunch -> no new issues, no c/o * Denies diarrhea PHYSICAL EXAMINATION: GENERAL:VSS, NAD HEENT: Unremarkable NECK: Supple, trachea midline. CHEST: Rise symmetrical, without dyspnea on observation HEART: Pulse RRR ABDOMEN: soft EXTREMITIES: Warm ID ASSESSMENT 71 yo M w/PMHx of cirrhosis -> s/p Liver Transplant 1989 on immunosuppressive Rx admit with: 1. Sepsis with fevers on admission = RESOLVED 2. Pneumonia => GNR + Yeast ?Aspiration PNA? RESPIRATORY CULTURE Final Organism 1 ALLEN ALBICANS QUANTITY 2+ Organism 2 ENTEROBACTER CLOACAE QUANTITY 1+ 3. Hypoxemic respiratory failure. 4. History of primary biliary 5. Diabetes mellitus. 6. Urinary retention=> s/p Stevens 7. 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 Continue current ABX=> E.Cloacae does not respond to Cephalosporins; Zosyn vs Levaquin are appropriate 2. Send stool for C.Diff toxin . Problems: Consultation Date/Type/Reason Admit Date/Time Jan 12, 2017 at 05:55 Type of Consultation: ID Exam/Review of Systems Vital Signs Vitals Vital Signs Date Time Temp Pulse Resp B/P Pulse Ox O2 Delivery O2 Flow Rate FiO2 01/18/17 13:22 77 92 21 01/18/17 12:32 98.0 22 187/83 01/18/17 07:52 Nasal Cannula 5.0 Intake and Output 01/17/17 01/17/17 01/18/17 15:00 23:00 07:00 Intake Total 2710 ml 1520 ml Output Total 2000 ml 2850 ml Balance 710 ml -1330 ml Results Result Diagram: 01/18/17 0720 01/18/17 0720 Results 24 hrs Laboratory Tests Test 01/17/17 16:20 01/17/17 17:18 01/17/17 20:37 01/18/17 01:54 Prothrombin Time 37.2 #H Prothrombin Time Ratio 2.9 INR International Normalized Ratio 3.69 Activated Partial Thromboplast Time 35.5 H Bedside Glucose 86 195 Vancomycin Level Trough 12.7 Test 01/18/17 02:21 01/18/17 07:20 01/18/17 08:19 01/18/17 12:39 Bedside Glucose 291 H 338 H 328 H White Blood Count 9.6 Red Blood Count 4.28 L Hemoglobin 11.4 L Hematocrit 36.9 L Mean Corpuscular Volume 86.2 Mean Corpuscular Hemoglobin 26.6 L Mean Corpuscular Hemoglobin Concent 30.9 L Red Cell Distribution Width 17.2 H Platelet Count 163 Mean Platelet Volume 9.5 Neutrophils % 88.9 H Lymphocytes % 1.9 L Monocytes % 3.2 Eosinophils % 0.0 Basophils % 0.1 Nucleated Red Blood Cells % 0.0 Neutrophils # 8.5 H Lymphocytes # 0.2 L Monocytes # 0.3 Eosinophils # 0.0 Basophils # 0.0 Nucleated Red Blood Cells # 0.0 Prothrombin Time 28.2 #H Prothrombin Time Ratio 2.2 INR International Normalized Ratio 2.60 Activated Partial Thromboplast Time 34.0 Sodium Level 133 L Potassium Level 4.3 Chloride Level 95 L Carbon Dioxide Level 33 H Anion Gap 9 Blood Urea Nitrogen 40 H Creatinine 1.06 Glucose Level 370 H Calcium Level 8.4 Medications Medications Current Medications Ondansetron HCl (Zofran Inj) 4 mg Q6H PRN IV NAUSEA AND/OR VOMITING; Start at 06:30 Acetaminophen (Tylenol Tab) 650 mg Q6H PRN PO PAIN LEVEL 1-3 OR FEVER; Start at 06:30 Acetaminophen/ Hydrocodone Bitart ([place] (5/325)) 1 tab Q6H PRN PO MODERATE PAIN LEVEL 4-6; Start 01/12/17 at 06:30 Morphine Sulfate (morphine) 2 mg Q4H PRN IV SEVERE PAIN LEVEL 7-10 Last administered on 01/14/17 14:55; Admin Dose 2 MG; Start 01/12/17 at 06:30 Docusate Sodium (Colace) 100 mg Q12H PRN PO CONSTIPATION Last administered on 05:35; Admin Dose 100 MG; Start 01/12/17 at 06:30 Magnesium Hydroxide (Milk Of Mag) 30 ml DAILY PRN PO CONSTIPATION; Start at 06:30 Sodium Biphosphate/ Sodium Phosphate (Fleet Enema) 133 ml DAILY PRN [place] CONSTIPATION; Start 01/12/17 at 06:30 Pantoprazole 40 mg 40 mg DAILY@06 IV Last administered on 01/18/17 05:06; Admin Dose 40 MG; Start 01/13/17 at 06:00 Sodium Chloride (1/2 NS) 1,000 ml @ 30 mls/hr Q24H IV Last administered on 08:57; Admin Dose 30 MLS/HR; Start 01/12/17 at 06:08 Lorazepam 0.5 mg 0.5 mg Q6H PRN IV ANXIETY; Start 01/12/17 at 06:30 Piperacillin Sod/ Tazobactam Sod (Zosyn 3.375gm/ 100 ml (Pmx)) 100 ml @ 200 mls /hr Q6 IVPB Last administered on 01/18/17 12:40; Admin Dose 200 MLS/HR; Start 01/12/17 at 12:00 Vancomycin HCl (Vanco Iv Per Pharmacy) VANCOMYCIN PER PHARMACY NOTE XX ; Start 01/12/17 at 06:30 Hydralazine HCl (Apresoline) 10 mg Q6H PRN IV ELEVATED BLOOD PRESSURE Last administered on 01/14/17 08:01; Admin Dose 10 MG; Start 01/12/17 at 06:30 Clonidine (Catapres) 0.1 mg Q6H PRN PO ELEVATED BLOOD PRESSURE; Start 01/12/17 at 06:30 Nitroglycerin (Nitroglycerin (Sl Tab) 0.4 Mg) 1 tab Q5M PRN SL ANGINA; Start at 06:30 Atorvastatin Calcium (Lipitor) 40 mg QHS PO Last administered on 01/17/17 20: 32; Admin Dose 40 MG; Start 01/13/17 at 21:00 Cyclosporine (Neoral) 100 mg BID PO Last administered on 01/18/17 08:58; Admin Dose 100 MG; Start 01/13/17 at 09:00 Dapsone (Dapsone) 100 mg DAILY PO Last administered on 01/15/17 08:07; Admin Dose 100 MG; Start 01/13/17 at 09:00 Dutasteride (Avodart) 0.5 mg DAILY PO Last administered on 01/18/17 09:08; Admin Dose 0.5 MG; Start 01/13/17 at 09:00 Fluticasone Propionate (Flonase 0.05% Nasal) 1 spray DAILY NASAL Last administered on 01/18/17 08:58; Admin Dose 1 SPRAY; Start 01/13/17 at 09:00 Ipratropium [place] (Atrovent Hfa) 2 puff QID INH Last administered on 12:43; Admin Dose 2 PUFF; Start 01/13/17 at 09:00 Valganciclovir (Valcyte) 450 mg BID PO Last administered on 01/18/17 08:58; Admin Dose 450 MG; Start 01/12/17 at 23:00 Mycophenolate Mofetil (Cellcept) 1,000 mg BID PO Last administered on 08:58; Admin Dose 1,000 MG; Start 01/13/17 at 02:45 Magnesium Oxide (Mag-Ox 400) 400 mg BID PO Last administered on 01/18/17 09:08 ; Admin Dose 400 MG; Start 01/13/17 at 21:00 Diagnostic Test (Pha) (Accucheck) 1 ea 02 XX Last administered on 01/18/17 02: 26; Admin Dose 1 EA; Start 01/14/17 at 02:00 Miscellaneous Information 1 ea NOTE XX ; Start 01/13/17 at 15:00 Glucose (Glutose) 15 gm Q15M PRN PO DECREASED GLUCOSE; Start 01/13/17 at 15:00 Glucose (Glutose) 22.5 gm Q15M PRN PO DECREASED GLUCOSE; Start 01/13/17 at 15: 00 Dextrose (D50w Syringe) 25 ml Q15M PRN IV DECREASED GLUCOSE; Start 01/13/17 at 15:00 Dextrose (D50w Syringe) 50 ml Q15M PRN IV DECREASED GLUCOSE; Start 01/13/17 at 15:00 Glucagon (Glucagen) 1 mg Q15M PRN IM DECREASED GLUCOSE; Start 01/13/17 at 15:00 Glucose 15 gm 15 gm Q15M PRN BUCCAL DECREASED GLUCOSE; Start 01/13/17 at 15:00 Vancomycin HCl (Vancocin) 250 ml @ 125 mls/hr Q12H IVPB Last administered on 03:01; Admin Dose 125 MLS/HR; Start 01/14/17 at 03:00 Lisinopril (Zestril) 40 mg DAILY PO Last administered on 01/18/17 08:59; Admin Dose 40 MG; Start 01/14/17 at 11:00 Furosemide (Lasix) 20 mg DAILY IV Last administered on 01/18/17 09:00; Admin Dose 20 MG; Start 01/15/17 at 09:00 Methylprednisolone Sodium Succinate (Solu-Medrol) 40 mg Q8 IV Last administered on 01/18/17 05:06; Admin Dose 40 MG; Start 01/14/17 at 14:00 Fluconazole (Diflucan) 100 mg DAILY PO Last administered on 01/18/17 08:59; Admin Dose 100 MG; Start 01/15/17 at 12:00 Nystatin (Nystatin Susp) 5 ml QID PO Last administered on 01/18/17 12:40; Admin Dose 5 ML; Start 01/15/17 at 13:00 Salmeterol Xinafoate/ Fluticasone (Advair 250/50 Diskus) 1 inh BID INH Last administered on 01/18/17 08:57; Admin Dose 1 INH; Start 01/15/17 at 14:30 Tiotropium [place] (Spiriva) 1 inh DAILY INH Last administered on 01/18/17 08: 58; Admin Dose 1 INH; Start 01/15/17 at 14:30 Tamsulosin HCl (Flomax) 0.4 mg HS PO Last administered on 01/15/17 20:23; Admin Dose 0.4 MG; Start 01/15/17 at 21:00 Metoprolol Tartrate (Lopressor) 25 mg BID PO Last administered on 01/18/17 08: 59; Admin Dose 25 MG; Start 01/16/17 at 21:00 Insulin Glargine (Lantus) 42 unit BID SC Last administered on 01/18/17 09:09; Admin Dose 42 UNIT; Start 01/18/17 at 09:00 Hydralazine HCl (Apresoline) 25 mg TID PO Last administered on 01/18/17 12:40 ; Admin Dose 25 MG; Start 01/18/17 at 13:00 Linagliptin (Tradjenta) 5 mg DAILY PO Last administered on 01/18/17 12:40; Admin Dose 5 MG; Start 01/18/17 at 11:30 Warfarin Sodium (Coumadin) 2 mg DAILY@17 PO ; Start 01/18/17 at 17:00 BUDDY SHIRLEY NP Jan 18, 2017 14:33
--- NOTE | 2017-01-18 15:02 | PN ---
DATE: 01/18/2017 SUBJECTIVE: Urinary retention and gross hematuria. HISTORY OF PRESENT ILLNESS: The patient at the present states that he is feeling better and that hi s breathing is better, but he has not been able to urinate, and last night he had urinary retention again after the Stevens catheter was removed late yesterday afternoon, and once the Stevens catheter was put in, he did have gross hematuria. OBJECTIVE: VITAL SIGNS: His temperature is 97.9, blood pressure 180/88, the pulse is 80, respirations 24. ABDOMEN: Soft. GENITOURINARY: The Stevens catheter now is draining clear urine, slightly pinkish, however, the urine in the bag is grossly bloody. He does have a good urine output. LABORATORY DATA: CBC shows a white count of 9.6, hemoglobin 11.4, hematocrit 36.9. BUN is 40, crea tinine 1.06, sodium 133, potassium 4.3, chloride 95, CO2 of 33. Urine culture from 01/15/2017 showe d no growth after 48 hours. His INR yesterday was elevated and in fact on the day before yesterday, the INR was 5.07, yesterday it came down to 3.69 and today is 2.6. The Coumadin dose is being adju sted. IMPRESSION: Urinary retention and gross hematuria, most likely related to his anticoagulation, and also the Stevens catheter. PLAN: To keep the Stevens catheter in, and the urinary retention could be related to him being on the inhalers for his breathing, and the inhalers, basically the tiotropium and also the Albuterol iprat ropium bromide. He is also on ipratropium bromide 4 times a day. All of these could affect his kory dder through their anticholinergic effect and cause him the retention. However, at the present, sin ce he has a pneumonia and he needs that for his breathing, we shall then keep the Stevens catheter in and when his lung condition is better, and if he is ready to go home and he is not able to urinate, we could send him home with the Stevens catheter and he could follow up as an outpatient with his urol ogist. If he is better, then we could take the Stevens catheter again, then we could do that and see if he voids while he is still here. At the same time, we shall continue him on the tamsulosin and t he dutasteride. Dictated By: KWADWO OVALLE/HILARIO Conf#: [id number] DID#: [id number]
[2017-01-18] MEDS ORDERED: WARFARIN 2 MG TAB PO SCH (17:00)
[2017-01-18] MEDS ORDERED: PHYTONADIONE 10 MG in DEXTROSE 5% 50 ML IVPB ONE (19:30)
[2017-01-18] MEDS: ATORVASTATIN 40 MG TAB PO SCH (21:13)
[2017-01-18] MEDS: TAMSULOSIN (SR) 0.4 MG CAP PO SCH (21:33)
--- NOTE | 2017-01-18 21:43 | CONS ---
Date/Time of Note Date/Time of Note DATE: 01/18/17 TIME: 21:32 Assessment/Plan Assessment/Plan Problems: (1) Diabetes mellitus type 2 in nonobese Status: Chronic Comment: Patient with increased insulin resistance secondary to corticosteroids from immunosuppresion. Now worsened by high dose methylprednisolone given for treatment of pneumonia, causing glycemic excursions. Will start by adding morning dose of Humulin N to be given with the AM dose of solumedrol over and above the current scheduled basal bolus regimen. May need to add further NPH doses with the other solumedrol doses if hyperglycemia continues. Additional Assessment/Plan Thank you for asking me to participate in this patients care. Consultation Date/Type/Reason Admit Date/Time Jan 12, 2017 at 05:55 Date of Consultation: Jan 18, 2017 Type of Consultation: Endocrine Reason for Consultation Glycemic management Referring Provider: BETH PATTON Hx of Present Illness 71 year old man with history of liver transplant 18 years ago on chronic immunosuppression, hypertension and 25 year history of diabetes mellitus type 2. Patient was admitted with bilateral pneumonia with significant clinical improvement. Constitutional: improved Eyes: no complaints ENT: no complaints Respiratory: shortness of breath, wheezing Cardiovascular: no complaints Gastrointestinal: no complaints Genitourinary: bleeding Musculoskeletal: no complaints Skin: no complaints Neurologic: no complaints Endocrine: other (hyperglycemia) Psychological: confusion (intermittent) Past Medical History Medical History: diabetes, hypertension, other Past Surgical History Past Surgical Hx: other (liver transplant) Family History Significant Family History: no pertinent family hx Exam/Review of Systems Vital Signs Vitals Vital Signs Date Time Temp Pulse Resp B/P Pulse Ox O2 Delivery O2 Flow Rate FiO2 01/18/17 20:47 98.5 67 19 169/77 91 01/18/17 20:17 2.0 01/18/17 20:15 Nasal Cannula 28 Intake and Output 01/17/17 01/17/17 01/18/17 15:00 23:00 07:00 Intake Total 2710 ml 1520 ml Output Total 2000 ml 2850 ml Balance 710 ml -1330 ml Exam Constitutional: alert, oriented, well developed Psych: no complaints Head: normocephalic Eyes: EOMI, PERRL, nl conjunctiva, nl sclera Neck: supple Respiratory: wheezing Cardiovascular: regular rate and rhythm Gastrointestinal: soft Genitourinary - Male: other (floey with hematuria) Musculoskeletal: nl extremities to inspection Extremities: normal pulses Neurological: WANT AD CLERK II-XII intact, nl mental status, nl speech, nl strength Results POC glucose reviewed Result Diagram: 01/18/1771901/18/17 0720 Results 24 hrs Laboratory Tests Test 01/18/17 01:54 01/18/17 02:21 01/18/17 07:20 01/18/17 08:19 Vancomycin Level Trough 12.7 Bedside Glucose 291 H 338 H White Blood Count 9.6 Red Blood Count 4.28 L Hemoglobin 11.4 L Hematocrit 36.9 L Mean Corpuscular Volume 86.2 Mean Corpuscular Hemoglobin 26.6 L Mean Corpuscular Hemoglobin Concent 30.9 L Red Cell Distribution Width 17.2 H Platelet Count 163 Mean Platelet Volume 9.5 Neutrophils % 88.9 H Lymphocytes % 1.9 L Monocytes % 3.2 Eosinophils % 0.0 Basophils % 0.1 Nucleated Red Blood Cells % 0.0 Neutrophils # 8.5 H Lymphocytes # 0.2 L Monocytes # 0.3 Eosinophils # 0.0 Basophils # 0.0 Nucleated Red Blood Cells # 0.0 Prothrombin Time 28.2 #H Prothrombin Time Ratio 2.2 INR International Normalized Ratio 2.60 Activated Partial Thromboplast Time 34.0 Sodium Level 133 L Potassium Level 4.3 Chloride Level 95 L Carbon Dioxide Level 33 H Anion Gap 9 Blood Urea Nitrogen 40 H Creatinine 1.06 Glucose Level 370 H Calcium Level 8.4 Test 01/18/17 12:39 01/18/17 17:29 01/18/17 21:11 Bedside Glucose 328 H 317 H 197 Medications Medications Current Medications Ondansetron HCl (Zofran Inj) 4 mg Q6H PRN IV NAUSEA AND/OR VOMITING; Start at 06:30 Acetaminophen (Tylenol Tab) 650 mg Q6H PRN PO PAIN LEVEL 1-3 OR FEVER; Start at 06:30 Acetaminophen/ Hydrocodone Bitart ([place] (5/325)) 1 tab Q6H PRN PO MODERATE PAIN LEVEL 4-6; Start 01/12/17 at 06:30 Morphine Sulfate (morphine) 2 mg Q4H PRN IV SEVERE PAIN LEVEL 7-10 Last administered on 01/14/17t 14:55; Admin Dose 2 MG; Start 01/12/17 at 06:30 Docusate Sodium (Colace) 100 mg Q12H PRN PO CONSTIPATION Last administered on 05:35; Admin Dose 100 MG; Start 01/12/17 at 06:30 Magnesium Hydroxide (Milk Of Mag) 30 ml DAILY PRN PO CONSTIPATION; Start at 06:30 Sodium Biphosphate/ Sodium Phosphate 133 ml 133 ml DAILY PRN [place] CONSTIPATION; Start 01/12/17 at 06:30 Sodium Chloride (1/2 NS) 1,000 ml @ 30 mls/hr Q24H IV Last administered on 08:57; Admin Dose 30 MLS/HR; Start 01/12/17 at 06:08 Lorazepam 0.5 mg 0.5 mg Q6H PRN IV ANXIETY; Start 01/12/17 at 06:30 Piperacillin Sod/ Tazobactam Sod (Zosyn 3.375gm/ 100 ml (Pmx)) 100 ml @ 200 mls /hr Q6 IVPB Last administered on 01/18/17 17:30; Admin Dose 200 MLS/HR; Start 01/12/17 at 12:00 Vancomycin HCl (Vanco Iv Per Pharmacy) VANCOMYCIN PER PHARMACY NOTE XX ; Start 01/12/17 at 06:30 Hydralazine HCl (Apresoline) 10 mg Q6H PRN IV ELEVATED BLOOD PRESSURE Last administered on 01/14/17 08:01; Admin Dose 10 MG; Start 01/12/17 at 06:30 Clonidine (Catapres) 0.1 mg Q6H PRN PO ELEVATED BLOOD PRESSURE; Start 01/12/17 at 06:30 Nitroglycerin (Nitroglycerin (Sl Tab) 0.4 Mg) 1 tab Q5M PRN SL ANGINA; Start at 06:30 Atorvastatin Calcium (Lipitor) 40 mg QHS PO Last administered on 01/17/17 20: 32; Admin Dose 40 MG; Start 01/13/17 at 21:00 Cyclosporine (Neoral) 100 mg BID PO Last administered on 01/18/17 08:58; Admin Dose 100 MG; Start 01/13/17 at 09:00 Dapsone (Dapsone) 100 mg DAILY PO Last administered on 01/15/17 08:07; Admin Dose 100 MG; Start 01/13/17 at 09:00 Dutasteride (Avodart) 0.5 mg DAILY PO Last administered on 01/18/17 09:08; Admin Dose 0.5 MG; Start 01/13/17 at 09:00 Fluticasone Propionate (Flonase 0.05% Nasal) 1 spray DAILY NASAL Last administered on 01/18/17 08:58; Admin Dose 1 SPRAY; Start 01/13/17 at 09:00 Ipratropium [place] (Atrovent Hfa) 2 puff QID INH Last administered on 17:30; Admin Dose 2 PUFF; Start 01/13/17 at 09:00 Valganciclovir (Valcyte) 450 mg BID PO Last administered on 01/18/17 08:58; Admin Dose 450 MG; Start 01/12/17 at 23:00 Mycophenolate Mofetil (Cellcept) 1,000 mg BID PO Last administered on 08:58; Admin Dose 1,000 MG; Start 01/13/17 at 02:45 Magnesium Oxide (Mag-Ox 400) 400 mg BID PO Last administered on 01/18/17 09:08 ; Admin Dose 400 MG; Start 01/13/17 at 21:00 Diagnostic Test (Pha) (Accucheck) 1 ea 02 XX Last administered on 01/18/17 02: 26; Admin Dose 1 EA; Start 01/14/17 at 02:00 Miscellaneous Information 1 ea NOTE XX ; Start 01/13/17 at 15:00 Glucose (Glutose) 15 gm Q15M PRN PO DECREASED GLUCOSE; Start 01/13/17 at 15:00 Glucose (Glutose) 22.5 gm Q15M PRN PO DECREASED GLUCOSE; Start 01/13/17 at 15: 00 Dextrose (D50w Syringe) 25 ml Q15M PRN IV DECREASED GLUCOSE; Start 01/13/17 at 15:00 Dextrose (D50w Syringe) 50 ml Q15M PRN IV DECREASED GLUCOSE; Start 01/13/17 at 15:00 Glucagon (Glucagen) 1 mg Q15M PRN IM DECREASED GLUCOSE; Start 01/13/17 at 15:00 Glucose 15 gm 15 gm Q15M PRN BUCCAL DECREASED GLUCOSE; Start 01/13/17 at 15:00 Vancomycin HCl (Vancocin) 250 ml @ 125 mls/hr Q12H IVPB Last administered on 14:35; Admin Dose 125 MLS/HR; Start 01/14/17 at 03:00 Lisinopril (Zestril) 40 mg DAILY PO Last administered on 01/18/17 08:59; Admin Dose 40 MG; Start 01/14/17 at 11:00 Furosemide (Lasix) 20 mg DAILY IV Last administered on 01/18/17 09:00; Admin Dose 20 MG; Start 01/15/17 at 09:00 Methylprednisolone Sodium Succinate (Solu-Medrol) 40 mg Q8 IV Last administered on 01/18/17 14:35; Admin Dose 40 MG; Start 01/14/17 at 14:00 Fluconazole (Diflucan) 100 mg DAILY PO Last administered on 01/18/17 08:59; Admin Dose 100 MG; Start 01/15/17 at 12:00 Nystatin (Nystatin Susp) 5 ml QID PO Last administered on 01/18/17 17:30; Admin Dose 5 ML; Start 01/15/17 at 13:00 Salmeterol Xinafoate/ Fluticasone (Advair 250/50 Diskus) 1 inh BID INH Last administered on 01/18/17 08:57; Admin Dose 1 INH; Start 01/15/17 at 14:30 Tiotropium [place] (Spiriva) 1 inh DAILY INH Last administered on 01/18/17 08: 58; Admin Dose 1 INH; Start 01/15/17 at 14:30 Tamsulosin HCl (Flomax) 0.4 mg HS PO Last administered on 01/15/17 20:23; Admin Dose 0.4 MG; Start 01/15/17 at 21:00 Metoprolol Tartrate (Lopressor) 25 mg BID PO Last administered on 01/18/17 08: 59; Admin Dose 25 MG; Start 01/16/17 at 21:00 Insulin Glargine (Lantus) 42 unit BID SC Last administered on 01/18/17 09:09; Admin Dose 42 UNIT; Start 01/18/17 at 09:00 Hydralazine HCl (Apresoline) 25 mg TID PO Last administered on 01/18/17 12:40 ; Admin Dose 25 MG; Start 01/18/17 at 13:00 Linagliptin (Tradjenta) 5 mg DAILY PO Last administered on 01/18/17t 12:40; Admin Dose 5 MG; Start 01/18/17 at 11:30 Pantoprazole (Protonix Tab) 40 mg DAILY@06 PO ; Start 01/19/17 at 06:00 RONAN PADILLA MD Jan 18, 2017 21:43
[2017-01-19] VITALS (11 sets, daily range): BP systolic 123–184; BP diastolic 63–80; PULSE 69–89; RESP 18–24
[2017-01-19] MEDS: PIPER-TAZO 3.375 GM IV (PMX) 100 ML IVPB SCH ×5 (01:00→23:52)
[2017-01-19] MEDS: ACCU-CHEK XX SCH (02:00)
[2017-01-19] MEDS: VANCOMYCIN 1 GM in NS 250 ML IVPB SCH ×2 (03:13→15:52)
[2017-01-19] MEDS: METHYLPREDNISOLONE 40 MG INJ IV SCH ×2 (05:36→15:51)
[2017-01-19] MEDS: PANTOPRAZOLE (EC) 40 MG TAB PO SCH (05:36)
[2017-01-19] MEDS: NPH, HUMAN INSULIN ISOPHANE 3ML VIAL SC SCH ×3 (05:51→23:54)
[2017-01-19] MEDS: ALBUTEROL/IPRATROPIUM (NEB) 3 ML AMP HHN SCH ×3 (08:00→20:00)
[2017-01-19 08:02] LABS: INR 1.49; PROTIME 18.1 Sec (12.2-14.2); PT RATIO 1.4
[2017-01-19 08:03] LABS: PARTIAL THROMBOPLASTIN TIME 26.5 Sec (25.0-35.0)
[2017-01-19] MEDS: INSULIN ASPART [NOVOLOG] 3 ML PEN SC SCH ×7 (08:26→20:58)
[2017-01-19] MEDS: INSULIN GLARGINE [LANtus] 3 ML PEN SC SCH ×2 (08:29→20:57)
[2017-01-19] MEDS: FLUTICASONE 0.05% 16 GM NAS SPRAY NASAL SCH (08:34)
[2017-01-19] MEDS: TIOTROPIUM 18 MCG CAPSULE INHA DEV INH SCH (08:34)
[2017-01-19] MEDS: SALMETEROL/FLUTICASONE 250/50 INHA INH SCH ×2 (08:34→21:02)
[2017-01-19] MEDS: IPRATROPIUM (HFA) 12.9 GM INHALER INH SCH ×4 (08:35→21:03)
[2017-01-19 08:46] LABS: POTASSIUM 4.1 mmol/L (3.5-5.1)
[2017-01-19 08:49] LABS: CREATININE 0.96 mg/dl (0.61-1.24)
[2017-01-19 08:50] LABS: CALCIUM 8.3 mg/dl (8.4-10.2)
[2017-01-19] MEDS: FUROSEMIDE 20 MG INJ IV SCH (08:55)
[2017-01-19] MEDS: MAGNESIUM OXIDE 400 MG TAB PO SCH ×2 (08:56→20:59)
[2017-01-19] MEDS: LISINOPRIL 20 MG TAB PO SCH (08:56)
[2017-01-19] MEDS: LINAGLIPTIN 5 MG TABLET PO SCH (08:57)
[2017-01-19] MEDS: NYSTATIN SUSP 5 ML CUP PO SCH ×4 (08:57→20:54)
[2017-01-19] MEDS: FLUCONAZOLE 100 MG TAB PO SCH (08:57)
[2017-01-19] MEDS: DAPSONE 100 MG TAB PO SCH (09:00)
[2017-01-19] MEDS: METOPROLOL 25 MG TAB PO SCH ×2 (09:00→20:59)
[2017-01-19] MEDS: VALGANCICLOVIR 450 MG TAB PO SCH ×2 (09:05→21:01)
[2017-01-19] MEDS: DUTASTERIDE 0.5 MG CAP PO SCH (09:08)
[2017-01-19] MEDS: MYCOPHENOLATE 250 MG CAP PO SCH ×2 (09:08→20:58)
[2017-01-19 09:37] LABS: ADD SCAN DIFF NO
[2017-01-19 09:57] LABS: ABNORMAL IP MESSAGE 1; BASOPHILS % 0.3 % (0.0-2.0); HEMATOCRIT 38.5 % (42.0-52.0); HEMOGLOBIN 12.2 g/dl (14.0-18.0); LYMPHOCYTES # 0.2 10^3/ul (0.8-2.9); LYMPHOCYTES % 1.4 % (15.0-51.0); MEAN CORPUSCULAR HEMOGLOBIN 26.8 pg (29.0-33.0); MEAN CORPUSCULAR HGB CONC 31.7 g/dl (32.0-37.0); MEAN CORPUSCULAR VOLUME 84.6 fl (82.0-101.0); MEAN PLATELET VOLUME 9.7 fl (7.4-10.4); MONOCYTE # 0.2 10^3/ul (0.3-0.9); MONOCYTES % 1.6 % (0.0-11.0); NEUTROPHIL # 10.3 10^3/ul (1.6-7.5); NEUTROPHILS % 90.5 % (39.0-77.0); NUCLEATED RED BLOOD CELLS% 0.2 /100WBC (0.0-0.0); PLATELET COUNT 188 10^3/UL (140-415); RED BLOOD COUNT 4.55 10^6/ul (4.70-6.10); RED CELL DISTRIBUTION WIDTH 16.8 % (11.5-14.5); WHITE BLOOD COUNT 11.4 10^3/ul (4.8-10.8)
[2017-01-19] MEDS ORDERED: PROMETHAZINE/CODEINE 5ML CUP PO ONE (11:00)
[2017-01-19] MEDS: PROMETHAZINE/CODEINE 5ML CUP PO PRN (11:13)
[2017-01-19] MEDS: CYCLOSPORINE MICROEMULS 100 MG CAP PO SCH ×2 (12:02→20:59)
--- NOTE | 2017-01-19 13:26 | PN ---
DATE: 01/19/2017 INFECTIOUS DISEASE PROGRESS NOTE SUBJECTIVE: No acute changes. The patient is awake, feels better. Looks comfortable, no fevers. He has Stevens catheter and urine with some bloody sediment and clots. LABORATORY DATA: WBC today 11.4, platelets 188, neutrophils 90.5. BUN 40, creatinine 0.96. ANTIMICROBIALS: The patient remains on broad spectrum antibiotics with vancomycin and Zosyn. He is also getting Valcyte, Diflucan. He is refusing the dapsone and metoprolol. PHYSICAL EXAMINATION: GENERAL: This is a well-developed elderly man who is alert, in no distress. HEENT: Head atraumatic, normocephalic. Sclerae anicteric. Buccal mucosa dry. NECK: Supple. CHEST: Rise symmetrical. Breath sounds clear. HEART: S1, S2. ABDOMEN: Soft, bowel sounds present. EXTREMITIES: Without cyanosis. ASSESSMENT: 1. Pneumonia with sepsis on admission, improving. 2. Status post hypoxemic respiratory failure. 3. Diabetes. 4. Urinary retention with hematuria, status post Stevens catheter placement by Dr. John. 5. History of primary biliary cirrhosis, status post liver transplant in 1989, on immunosuppressive therapy. PLAN: The patient remains stable, followed by multiple consultants. He is getting steroids and bro nchodilators. He is on appropriate antimicrobials pending transfer to [facility] facility. Dictated By: CHRISTINA LOTT CLIENT SUPPORT ANALYST for DANAY SOTELO/NTS Conf#: [id number] DID#: [id number]
--- NOTE | 2017-01-19 14:08 | CONS ---
Date/Time of Note Date/Time of Note DATE: 01/19/17 TIME: 14:07 Assessment/Plan Assessment/Plan Problems: (1) Diabetes mellitus type 2 in nonobese Status: Chronic Comment: His sugars which are actually well controlled as an outpatient taken off of the usage of high-dose steroids for the sepsis syndrome. The NPH with the dosing of the steroids works however he is getting 1 dose of NPH and 3 doses of steroids. As such we will adjust the NPH to be with each dosing over and above the baseline insulin. Please note the NPH will need to be reduced or stopped as the Solu-Medrol is reduced or stopped. (2) Status post liver transplant Status: Chronic Comment: This is an immunocompromise state will need to continue his medications and watch carefully (3) Sepsis Status: Acute Comment: He is an immunocompromised patient on broad-spectrum antibiotics Qualifiers: Sepsis type: sepsis due to unspecified organism Qualified Code: A41.9 - Sepsis, due to unspecified organism Consultation Date/Type/Reason Admit Date/Time Jan 12, 2017 at 05:55 Initial Consult Date 01/18/17 Type of Consultation: Endocrine Referring Provider: BETH PATTON 24 HR Interval Summary Free Text/Dictation No changes Exam/Review of Systems Vital Signs Vitals Vital Signs Date Time Temp Pulse Resp B/P Pulse Ox O2 Delivery O2 Flow Rate FiO2 01/19/17 13:33 18 01/19/17 12:09 89 01/19/17 11:52 97.7 138/66 93 01/19/17 08:05 Nasal Cannula 3.0 01/18/17 20:15 28 Intake and Output 01/18/17 01/18/17 01/19/17 15:00 23:00 07:00 Intake Total 2110 ml 500 ml Output Total 3000 ml 2000 ml Balance -890 ml -1500 ml Exam No changes Results Result Diagram: 01/19/17 0905 01/19/17 0725 Results 24 hrs Laboratory Tests Test 01/18/17 17:29 01/18/17 21:11 01/19/17 03:08 01/19/17 07:25 Bedside Glucose 317 H 197 243 H Prothrombin Time 18.1 #H Prothrombin Time Ratio 1.4 INR International Normalized Ratio 1.49 Activated Partial Thromboplast Time 26.5 Sodium Level 130 L Potassium Level 4.1 Chloride Level 94 L Carbon Dioxide Level 30 Anion Gap 10 Blood Urea Nitrogen 40 H Creatinine 0.96 Glucose Level 281 H Calcium Level 8.3 L Test 01/19/17 07:45 01/19/17 09:05 01/19/17 11:40 Bedside Glucose 288 H 321 H White Blood Count 11.4 H Red Blood Count 4.55 L Hemoglobin 12.2 L Hematocrit 38.5 L Mean Corpuscular Volume 84.6 Mean Corpuscular Hemoglobin 26.8 L Mean Corpuscular Hemoglobin Concent 31.7 L Red Cell Distribution Width 16.8 H Platelet Count 188 Mean Platelet Volume 9.7 Neutrophils % 90.5 H Lymphocytes % 1.4 L Monocytes % 1.6 Eosinophils % 0.0 Basophils % 0.3 Nucleated Red Blood Cells % 0.2 H Neutrophils # 10.3 H Lymphocytes # 0.2 L Monocytes # 0.2 L Eosinophils # 0.0 Basophils # 0.0 Nucleated Red Blood Cells # 0.0 Medications Medications Current Medications Ondansetron HCl (Zofran Inj) 4 mg Q6H PRN IV NAUSEA AND/OR VOMITING; Start at 06:30 Acetaminophen (Tylenol Tab) 650 mg Q6H PRN PO PAIN LEVEL 1-3 OR FEVER; Start at 06:30 Acetaminophen/ Hydrocodone Bitart ([place] (5/325)) 1 tab Q6H PRN PO MODERATE PAIN LEVEL 4-6; Start 01/12/17 at 06:30 Morphine Sulfate (morphine) 2 mg Q4H PRN IV SEVERE PAIN LEVEL 7-10 Last administered on 01/14/17 14:55; Admin Dose 2 MG; Start 01/12/17 at 06:30 Docusate Sodium (Colace) 100 mg Q12H PRN PO CONSTIPATION Last administered on 05:35; Admin Dose 100 MG; Start 01/12/17 at 06:30 Magnesium Hydroxide (Milk Of Mag) 30 ml DAILY PRN PO CONSTIPATION; Start at 06:30 Sodium Biphosphate/ Sodium Phosphate 133 ml 133 ml DAILY PRN [place] CONSTIPATION; Start 01/12/17 at 06:30 Sodium Chloride (1/2 NS) 1,000 ml @ 30 mls/hr Q24H IV Last administered on 08:57; Admin Dose 30 MLS/HR; Start 01/12/17 at 06:08 Lorazepam 0.5 mg 0.5 mg Q6H PRN IV ANXIETY; Start 01/12/17 at 06:30 Piperacillin Sod/ Tazobactam Sod (Zosyn 3.375gm/ 100 ml (Pmx)) 100 ml @ 200 mls /hr Q6 IVPB Last administered on 01/19/17 11:41; Admin Dose 200 MLS/HR; Start 01/12/17 at 12:00 Vancomycin HCl (Vanco Iv Per Pharmacy) VANCOMYCIN PER PHARMACY NOTE XX ; Start 01/12/17 at 06:30 Hydralazine HCl (Apresoline) 10 mg Q6H PRN IV ELEVATED BLOOD PRESSURE Last administered on 01/14/17 08:01; Admin Dose 10 MG; Start 01/12/17 at 06:30 Clonidine (Catapres) 0.1 mg Q6H PRN PO ELEVATED BLOOD PRESSURE; Start 01/12/17 at 06:30 Nitroglycerin (Nitroglycerin (Sl Tab) 0.4 Mg) 1 tab Q5M PRN SL ANGINA; Start at 06:30 Atorvastatin Calcium (Lipitor) 40 mg QHS PO Last administered on 01/18/17 21: 13; Admin Dose 40 MG; Start 01/13/17 at 21:00 Cyclosporine (Neoral) 100 mg BID PO Last administered on 01/19/17 12:02; Admin Dose 100 MG; Start 01/13/17 at 09:00 Dapsone (Dapsone) 100 mg DAILY PO Last administered on 01/15/17 08:07; Admin Dose 100 MG; Start 01/13/17 at 09:00 Dutasteride (Avodart) 0.5 mg DAILY PO Last administered on 01/19/17 09:08; Admin Dose 0.5 MG; Start 01/13/17 at 09:00 Fluticasone Propionate (Flonase 0.05% Nasal) 1 spray DAILY NASAL Last administered on 01/19/17 08:34; Admin Dose 1 SPRAY; Start 01/13/17 at 09:00 Ipratropium [place] (Atrovent Hfa) 2 puff QID INH Last administered on 08:35; Admin Dose 2 PUFF; Start 01/13/17 at 09:00 Valganciclovir (Valcyte) 450 mg BID PO Last administered on 01/19/17 09:05; Admin Dose 450 MG; Start 01/12/17 at 23:00 Mycophenolate Mofetil (Cellcept) 1,000 mg BID PO Last administered on 09:08; Admin Dose 1,000 MG; Start 01/13/17 at 02:45 Magnesium Oxide (Mag-Ox 400) 400 mg BID PO Last administered on 01/19/17 08:56 ; Admin Dose 400 MG; Start 01/13/17 at 21:00 Diagnostic Test (Pha) (Accucheck) 1 ea 02 XX Last administered on 01/18/17 02: 26; Admin Dose 1 EA; Start 01/14/17 at 02:00 Miscellaneous Information 1 ea NOTE XX ; Start 01/13/17 at 15:00 Glucose (Glutose) 15 gm Q15M PRN PO DECREASED GLUCOSE; Start 01/13/17 at 15:00 Glucose (Glutose) 22.5 gm Q15M PRN PO DECREASED GLUCOSE; Start 01/13/17 at 15: 00 Dextrose (D50w Syringe) 25 ml Q15M PRN IV DECREASED GLUCOSE; Start 01/13/17 at 15:00 Dextrose (D50w Syringe) 50 ml Q15M PRN IV DECREASED GLUCOSE; Start 01/13/17 at 15:00 Glucagon (Glucagen) 1 mg Q15M PRN IM DECREASED GLUCOSE; Start 01/13/17 at 15:00 Glucose 15 gm 15 gm Q15M PRN BUCCAL DECREASED GLUCOSE; Start 01/13/17 at 15:00 Vancomycin HCl (Vancocin) 250 ml @ 125 mls/hr Q12H IVPB Last administered on 03:13; Admin Dose 125 MLS/HR; Start 01/14/17 at 03:00 Lisinopril (Zestril) 40 mg DAILY PO Last administered on 01/19/17 08:56; Admin Dose 40 MG; Start 01/14/17 at 11:00 Furosemide (Lasix) 20 mg DAILY IV Last administered on 01/19/17 08:55; Admin Dose 20 MG; Start 01/15/17 at 09:00 Methylprednisolone Sodium Succinate (Solu-Medrol) 40 mg Q8 IV Last administered on 01/19/17 05:36; Admin Dose 40 MG; Start 01/14/17 at 14:00 Fluconazole (Diflucan) 100 mg DAILY PO Last administered on 01/19/17 08:57; Admin Dose 100 MG; Start 01/15/17 at 12:00 Nystatin (Nystatin Susp) 5 ml QID PO Last administered on 01/19/17 08:57; Admin Dose 5 ML; Start 01/15/17 at 13:00 Salmeterol Xinafoate/ Fluticasone (Advair 250/50 Diskus) 1 inh BID INH Last administered on 01/19/17 08:34; Admin Dose 1 INH; Start 01/15/17 at 14:30 Tiotropium [place] (Spiriva) 1 inh DAILY INH Last administered on 01/19/17 08: 34; Admin Dose 1 INH; Start 01/15/17 at 14:30 Tamsulosin HCl (Flomax) 0.4 mg HS PO Last administered on 01/18/17 21:33; Admin Dose 0.4 MG; Start 01/15/17 at 21:00 Metoprolol Tartrate (Lopressor) 25 mg BID PO Last administered on 01/18/17 21: 15; Admin Dose 25 MG; Start 01/16/17 at 21:00 Insulin Glargine (Lantus) 42 unit BID SC Last administered on 01/19/17 08:29; Admin Dose 42 UNIT; Start 01/18/17 at 09:00 Hydralazine HCl (Apresoline) 25 mg TID PO Last administered on 01/19/17 08:58 ; Admin Dose 25 MG; Start 01/18/17 at 13:00 Linagliptin (Tradjenta) 5 mg DAILY PO Last administered on 01/19/17 08:57; Admin Dose 5 MG; Start 01/18/17 at 11:30 Pantoprazole (Protonix Tab) 40 mg DAILY@06 PO Last administered on 01/19/17 05 :36; Admin Dose 40 MG; Start 01/19/17 at 06:00 Insulin Human NPH (Humulin N) 10 unit AM SC Last administered on 01/19/17 09: 19; Admin Dose 10 UNIT; Start 01/19/17 at 06:00 Promethazine HCl/ Codeine (Phenergan/ Codeine) 5 ml Q4H PRN PO COUGH Last administered on 01/19/17t 11:13; Admin Dose 5 ML; Start 01/19/17 at 11:00 RITA BURGER MD Jan 19, 2017 14:08
--- NOTE | 2017-01-19 15:57 | PN ---
Date/Time of Note Date/Time of Note DATE: 01/19/17 TIME: 15:54 Assessment/Plan VTE Prophylaxis VTE Prophylaxis Intervention: SCD's Lines/Catheters IV Catheter Type (from [facility]): Peripheral IV Assessment/Plan Chief Complaint/Hosp Course 1. Sepsis + Lactic acidosis 2/2 #2: resolved 2. Acute Respiratory failure: improved, Oxygen requirement between room air and 5L Echo wasn't impressive with Ef 55% and no significant valvular deficit 3. Bilateral Pneumonia (Recurrent versus incompletely treated) Patient was treated for similar infection 6 weeks ago Patient was discharged on Dapsone for PCP prophylaxis / family refusing dapsone 2/2 side effect of elevated methemoglobin 4. 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 Hypertension: control still suboptimal 6. Antiphospholipid antibody syndrome + hx of DVT for which patient was on coumadin 7. Supratherapeutic INR: improved 8. Dyslipidemia 9. BPH with Urinary retention likely 2/2 anticholinergics and Worsening hematuria: 9. Diabetes type 2 on insulin therapy 10. Mild thrombocytopenia: resolved 11. Oral thrush PLAN: * We have to reverse Coumadin with Vit K and FFP in view of hematuria * Wean off Oxygen therapy * Continue broad spectrum abx therapy / bronchodilator therapy / supplemental O2 / gentle lasix diuresis * Continue all antirejection meds * Continue to titrate meds for better BP control * Diabetic diet / SSI / Lantus . NovoLog/ Tradjenta * Supportive care * Patient will need to be discharged on course of abx for pneumonia, will defer to ID * Patient is to followup with his hepatology team for choice of drug to replace dapsone * Will DC today as patient has persistent cough and significant hematuria, plan per urology is likely DC with Stevens and for patient to follow-up with urologist as an outpatient Gastrointestinal prophylaxis, proton pump inhibitor. Deep venous thrombosis prophylaxis: SCDs / ambulation Problems: Subjective 24 Hr Interval Summary Respiratory: cough Exam/Review of Systems Vital Signs Vitals Vital Signs Date Time Temp Pulse Resp B/P Pulse Ox O2 Delivery O2 Flow Rate FiO2 01/19/17 13:33 18 01/19/17 12:09 89 01/19/17 11:52 97.7 138/66 93 01/19/17 08:05 Nasal Cannula 3.0 01/18/17 20:15 28 Intake and Output 01/18/17 01/18/17 01/19/17 15:00 23:00 07:00 Intake Total 2110 ml 500 ml Output Total 3000 ml 2000 ml Balance -890 ml -1500 ml Exam Constitutional: alert, oriented Respiratory: clear to auscultation Cardiovascular: regular rate and rhythm Gastrointestinal: soft, No distended Musculoskeletal: nl extremities to inspection Results Result Diagram: 01/19/17 0905 01/19/17 0725 Results 24 hrs Laboratory Tests Test 01/18/17 17:29 01/18/17 21:11 01/19/17 03:08 01/19/17 07:25 Bedside Glucose 317 H 197 243 H Prothrombin Time 18.1 #H Prothrombin Time Ratio 1.4 INR International Normalized Ratio 1.49 Activated Partial Thromboplast Time 26.5 Sodium Level 130 L Potassium Level 4.1 Chloride Level 94 L Carbon Dioxide Level 30 Anion Gap 10 Blood Urea Nitrogen 40 H Creatinine 0.96 Glucose Level 281 H Calcium Level 8.3 L Test 01/19/17 07:45 01/19/17 09:05 01/19/17 11:40 Bedside Glucose 288 H 321 H White Blood Count 11.4 H Red Blood Count 4.55 L Hemoglobin 12.2 L Hematocrit 38.5 L Mean Corpuscular Volume 84.6 Mean Corpuscular Hemoglobin 26.8 L Mean Corpuscular Hemoglobin Concent 31.7 L Red Cell Distribution Width 16.8 H Platelet Count 188 Mean Platelet Volume 9.7 Neutrophils % 90.5 H Lymphocytes % 1.4 L Monocytes % 1.6 Eosinophils % 0.0 Basophils % 0.3 Nucleated Red Blood Cells % 0.2 H Neutrophils # 10.3 H Lymphocytes # 0.2 L Monocytes # 0.2 L Eosinophils # 0.0 Basophils # 0.0 Nucleated Red Blood Cells # 0.0 Medications Medications Current Medications Ondansetron HCl (Zofran Inj) 4 mg Q6H PRN IV NAUSEA AND/OR VOMITING; Start at 06:30 Acetaminophen (Tylenol Tab) 650 mg Q6H PRN PO PAIN LEVEL 1-3 OR FEVER; Start at 06:30 Acetaminophen/ Hydrocodone Bitart ([place] (5/325)) 1 tab Q6H PRN PO MODERATE PAIN LEVEL 4-6; Start 01/12/17 at 06:30 Morphine Sulfate (morphine) 2 mg Q4H PRN IV SEVERE PAIN LEVEL 7-10 Last administered on 01/14/17 14:55; Admin Dose 2 MG; Start 01/12/17 at 06:30 Docusate Sodium (Colace) 100 mg Q12H PRN PO CONSTIPATION Last administered on 05:35; Admin Dose 100 MG; Start 01/12/17 at 06:30 Magnesium Hydroxide (Milk Of Mag) 30 ml DAILY PRN PO CONSTIPATION; Start at 06:30 Sodium Biphosphate/ Sodium Phosphate 133 ml 133 ml DAILY PRN [place] CONSTIPATION; Start 01/12/17 at 06:30 Sodium Chloride (1/2 NS) 1,000 ml @ 30 mls/hr Q24H IV Last administered on 08:57; Admin Dose 30 MLS/HR; Start 01/12/17 at 06:08 Lorazepam 0.5 mg 0.5 mg Q6H PRN IV ANXIETY; Start 01/12/17 at 06:30 Piperacillin Sod/ Tazobactam Sod (Zosyn 3.375gm/ 100 ml (Pmx)) 100 ml @ 200 mls /hr Q6 IVPB Last administered on 01/19/17 11:41; Admin Dose 200 MLS/HR; Start 01/12/17 at 12:00 Vancomycin HCl (Vanco Iv Per Pharmacy) VANCOMYCIN PER PHARMACY NOTE XX ; Start 01/12/17 at 06:30 Hydralazine HCl (Apresoline) 10 mg Q6H PRN IV ELEVATED BLOOD PRESSURE Last administered on 01/14/17 08:01; Admin Dose 10 MG; Start 01/12/17 at 06:30 Clonidine (Catapres) 0.1 mg Q6H PRN PO ELEVATED BLOOD PRESSURE; Start 01/12/17 at 06:30 Nitroglycerin (Nitroglycerin (Sl Tab) 0.4 Mg) 1 tab Q5M PRN SL ANGINA; Start at 06:30 Atorvastatin Calcium (Lipitor) 40 mg QHS PO Last administered on 01/18/17 21: 13; Admin Dose 40 MG; Start 01/13/17 at 21:00 Cyclosporine (Neoral) 100 mg BID PO Last administered on 01/19/17 12:02; Admin Dose 100 MG; Start 01/13/17 at 09:00 Dapsone (Dapsone) 100 mg DAILY PO Last administered on 01/15/17 08:07; Admin Dose 100 MG; Start 01/13/17 at 09:00 Dutasteride (Avodart) 0.5 mg DAILY PO Last administered on 01/19/17 09:08; Admin Dose 0.5 MG; Start 01/13/17 at 09:00 Fluticasone Propionate (Flonase 0.05% Nasal) 1 spray DAILY NASAL Last administered on 01/19/17 08:34; Admin Dose 1 SPRAY; Start 01/13/17 at 09:00 Ipratropium [place] (Atrovent Hfa) 2 puff QID INH Last administered on 08:35; Admin Dose 2 PUFF; Start 01/13/17 at 09:00 Valganciclovir (Valcyte) 450 mg BID PO Last administered on 01/19/17 09:05; Admin Dose 450 MG; Start 01/12/17 at 23:00 Mycophenolate Mofetil (Cellcept) 1,000 mg BID PO Last administered on 09:08; Admin Dose 1,000 MG; Start 01/13/17 at 02:45 Magnesium Oxide (Mag-Ox 400) 400 mg BID PO Last administered on 01/19/17 08:56 ; Admin Dose 400 MG; Start 01/13/17 at 21:00 Diagnostic Test (Pha) (Accucheck) 1 ea 02 XX Last administered on 01/18/17 02: 26; Admin Dose 1 EA; Start 01/14/17 at 02:00 Miscellaneous Information 1 ea NOTE XX ; Start 01/13/17 at 15:00 Glucose (Glutose) 15 gm Q15M PRN PO DECREASED GLUCOSE; Start 01/13/17 at 15:00 Glucose (Glutose) 22.5 gm Q15M PRN PO DECREASED GLUCOSE; Start 01/13/17 at 15: 00 Dextrose (D50w Syringe) 25 ml Q15M PRN IV DECREASED GLUCOSE; Start 01/13/17 at 15:00 Dextrose (D50w Syringe) 50 ml Q15M PRN IV DECREASED GLUCOSE; Start 01/13/17 at 15:00 Glucagon (Glucagen) 1 mg Q15M PRN IM DECREASED GLUCOSE; Start 01/13/17 at 15:00 Glucose 15 gm 15 gm Q15M PRN BUCCAL DECREASED GLUCOSE; Start 01/13/17 at 15:00 Vancomycin HCl (Vancocin) 250 ml @ 125 mls/hr Q12H IVPB Last administered on 15:52; Admin Dose 125 MLS/HR; Start 01/14/17 at 03:00 Lisinopril (Zestril) 40 mg DAILY PO Last administered on 01/19/17 08:56; Admin Dose 40 MG; Start 01/14/17 at 11:00 Furosemide (Lasix) 20 mg DAILY IV Last administered on 01/19/17 08:55; Admin Dose 20 MG; Start 01/15/17 at 09:00 Fluconazole (Diflucan) 100 mg DAILY PO Last administered on 01/19/17 08:57; Admin Dose 100 MG; Start 01/15/17 at 12:00 Nystatin (Nystatin Susp) 5 ml QID PO Last administered on 01/19/17 15:51; Admin Dose 5 ML; Start 01/15/17 at 13:00 Salmeterol Xinafoate/ Fluticasone (Advair 250/50 Diskus) 1 inh BID INH Last administered on 01/19/17 08:34; Admin Dose 1 INH; Start 01/15/17 at 14:30 Tiotropium [place] (Spiriva) 1 inh DAILY INH Last administered on 01/19/17 08: 34; Admin Dose 1 INH; Start 01/15/17 at 14:30 Tamsulosin HCl (Flomax) 0.4 mg HS PO Last administered on 01/18/17 21:33; Admin Dose 0.4 MG; Start 01/15/17 at 21:00 Metoprolol Tartrate (Lopressor) 25 mg BID PO Last administered on 01/18/17 21: 15; Admin Dose 25 MG; Start 01/16/17 at 21:00 Insulin Glargine (Lantus) 42 unit BID SC Last administered on 01/19/17 08:29; Admin Dose 42 UNIT; Start 01/18/17 at 09:00 Hydralazine HCl (Apresoline) 25 mg TID PO Last administered on 01/19/17 15:51 ; Admin Dose 25 MG; Start 01/18/17 at 13:00 Linagliptin (Tradjenta) 5 mg DAILY PO Last administered on 01/19/17 08:57; Admin Dose 5 MG; Start 01/18/17 at 11:30 Pantoprazole (Protonix Tab) 40 mg DAILY@06 PO Last administered on 01/19/17 05 :36; Admin Dose 40 MG; Start 01/19/17 at 06:00 Promethazine HCl/ Codeine (Phenergan/ Codeine) 5 ml Q4H PRN PO COUGH Last administered on 01/19/17 11:13; Admin Dose 5 ML; Start 01/19/17 at 11:00 Insulin Human NPH (Humulin N) 15 unit Q8 SC ; Start 01/19/17 at 22:00 Methylprednisolone Sodium Succinate (Solu-Medrol) 40 mg DAILY IV ; Start at 09:00; Status UNTINY FREEDMAN Jan 19, 2017 15:57
[2017-01-19] MEDS: ATORVASTATIN 40 MG TAB PO SCH (20:59)
[2017-01-19] MEDS: TAMSULOSIN (SR) 0.4 MG CAP PO SCH (20:59)
--- NOTE | 2017-01-19 23:00 | PN ---
DATE: 01/19/2017 SUBJECTIVE: Urinary retention. The patient is feeling comfortable. He does have some blood in the drainage tubing, but the urine is basically clear. The patient is breathing better, but he is stil l medications for his pneumonia. MEDICATIONS: 1. He is on Solu-Medrol 40 mg IV daily. 2. He is on Phenergan with codeine. 3. Also he is on tiotropium. 4. Albuterol/ipratropium. 5. Flonase 6. Ipratropium bromide. OBJECTIVE FINDINGS: VITAL SIGNS: His temperature is 97.8, pulse is 81, respirations 20, blood pressure 141/63. ABDOMEN: Stevens catheter is draining clear urine. There are a few spots of blood in it. LABORATORY DATA: CBC shows a white count of 11.4, hemoglobin 12.2, hematocrit 38.5. BUN is 40, cre atinine 0.96, sodium 130, potassium 4.1, chloride 94, CO2 of 30. Urine culture from 01/15/2017 show ed no growth in 48 hours. IMPRESSION: 1. Urinary retention. 2. The patient has pneumonia and is on medication for that. PLAN: To continue the tamsulosin 0.4 mg and dutasteride. Hopefully, once his lung medications are not needed, one could stop them and see if he is able to urinate. If he is ready to go home and he is still unable to urinate, one could keep the Stevens catheter in and follow up as an outpatient. Dictated By: KWADWO OVALLE/HILARIO Conf#: [id number] DID#: [id number] CC: BETH PATTON;*End*
[2017-01-20] VITALS (8 sets, daily range): BP systolic 150–174; BP diastolic 69–87; PULSE 80–114; RESP 18–20
[2017-01-20] MEDS: SOD CHLORIDE 0.45% 1,000 ML IV SCH (00:48)
[2017-01-20] MEDS: ACCU-CHEK XX SCH (02:00)
[2017-01-20] MEDS: VANCOMYCIN 1 GM in NS 250 ML IVPB SCH (02:49)
[2017-01-20] MEDS: PANTOPRAZOLE (EC) 40 MG TAB PO SCH (05:39)
[2017-01-20] MEDS: PIPER-TAZO 3.375 GM IV (PMX) 100 ML IVPB SCH (05:39)
[2017-01-20] MEDS: NPH, HUMAN INSULIN ISOPHANE 3ML VIAL SC SCH (05:41)
[2017-01-20] MEDS: ALBUTEROL/IPRATROPIUM (NEB) 3 ML AMP HHN SCH ×2 (08:00→13:16)
[2017-01-20] MEDS: LISINOPRIL 20 MG TAB PO SCH (08:18)
[2017-01-20] MEDS: VALGANCICLOVIR 450 MG TAB PO SCH (08:18)
[2017-01-20] MEDS: LINAGLIPTIN 5 MG TABLET PO SCH (08:19)
[2017-01-20] MEDS: MYCOPHENOLATE 250 MG CAP PO SCH (08:19)
[2017-01-20] MEDS: NYSTATIN SUSP 5 ML CUP PO SCH (08:19)
[2017-01-20] MEDS: CYCLOSPORINE MICROEMULS 100 MG CAP PO SCH (08:20)
[2017-01-20] MEDS: FUROSEMIDE 20 MG INJ IV SCH (08:20)
[2017-01-20] MEDS: DUTASTERIDE 0.5 MG CAP PO SCH (08:21)
[2017-01-20] MEDS: FLUCONAZOLE 100 MG TAB PO SCH (08:21)
[2017-01-20 08:23] LABS: ADD SCAN DIFF NO
[2017-01-20] MEDS: IPRATROPIUM (HFA) 12.9 GM INHALER INH SCH (08:23)
[2017-01-20] MEDS: SALMETEROL/FLUTICASONE 250/50 INHA INH SCH (08:23)
[2017-01-20] MEDS: TIOTROPIUM 18 MCG CAPSULE INHA DEV INH SCH (08:24)
[2017-01-20] MEDS: FLUTICASONE 0.05% 16 GM NAS SPRAY NASAL SCH (08:24)
[2017-01-20 08:28] LABS: ABNORMAL IP MESSAGE 1; BASOPHILS % 0.2 % (0.0-2.0); EOSINOPHILS % 0.1 % (0.0-7.0); HEMATOCRIT 38.9 % (42.0-52.0); HEMOGLOBIN 12.1 g/dl (14.0-18.0); LYMPHOCYTES # 0.3 10^3/ul (0.8-2.9); MEAN CORPUSCULAR HEMOGLOBIN 26.6 pg (29.0-33.0); MEAN CORPUSCULAR HGB CONC 31.1 g/dl (32.0-37.0); MEAN CORPUSCULAR VOLUME 85.5 fl (82.0-101.0); MEAN PLATELET VOLUME 9.5 fl (7.4-10.4); MONOCYTE # 0.7 10^3/ul (0.3-0.9); MONOCYTES % 5.6 % (0.0-11.0); NEUTROPHIL # 11.1 10^3/ul (1.6-7.5); NEUTROPHILS % 85.3 % (39.0-77.0); NUCLEATED RED BLOOD CELLS% 0.2 /100WBC (0.0-0.0); PLATELET COUNT 187 10^3/UL (140-415); RED BLOOD COUNT 4.55 10^6/ul (4.70-6.10); RED CELL DISTRIBUTION WIDTH 17.7 % (11.5-14.5); WHITE BLOOD COUNT 13.1 10^3/ul (4.8-10.8)
[2017-01-20] MEDS: INSULIN ASPART [NOVOLOG] 3 ML PEN SC SCH ×4 (08:35→12:54)
[2017-01-20] MEDS: INSULIN GLARGINE [LANtus] 3 ML PEN SC SCH (08:36)
[2017-01-20 08:39] LABS: INR 1.12; PROTIME 14.4 Sec (12.2-14.2); PT RATIO 1.1
[2017-01-20] MEDS: DAPSONE 100 MG TAB PO SCH (08:39)
[2017-01-20 08:40] LABS: PARTIAL THROMBOPLASTIN TIME 24.1 Sec (25.0-35.0)
[2017-01-20] MEDS: MAGNESIUM OXIDE 400 MG TAB PO SCH (08:40)
[2017-01-20] MEDS: METOPROLOL 25 MG TAB PO SCH (08:40)
[2017-01-20 08:52] LABS: CREATININE 1.15 mg/dl (0.61-1.24)
[2017-01-20 08:53] LABS: CALCIUM 8.3 mg/dl (8.4-10.2); MAGNESIUM 2.1 mg/dl (1.7-2.5); PHOSPHORUS 2.7 mg/dl (2.5-4.9)
[2017-01-20] MEDS ORDERED: METHYLPREDNISOLONE 40 MG INJ IV SCH (09:00)
[2017-01-20 09:36] LABS: ALBUMIN 2.9 g/dl (3.3-4.9)
[2017-01-20 09:38] LABS: BILIRUBIN,INDIRECT 0.4 mg/dl (0-1.1); BILIRUBIN,TOTAL 0.4 mg/dl (0.2-1.3)
[2017-01-20 09:39] LABS: TOTAL PROTEIN 5.5 g/dl (6.1-8.1)
--- NOTE | 2017-01-20 10:05 | RADRPT ---
PROCEDURE: Chest 1 views. CLINICAL INDICATION: Shortness of breath TECHNIQUE: AP views of the chest was obtained. COMPARISON: January 16, 2017 FINDINGS: The heart is large. The lungs are hypoinflated. Elevation of the right hemidiaphragm continues to b e seen. Atelectasis is noted at the lung bases. Additional atelectasis is seen in the lingula. No c onsolidations are identified. No pneumothorax is seen. The osseous structures are osteopenic, but appear grossly intact. Mild degenerative changes are seen in the shoulders. IMPRESSION: Cardiomegaly . Elevation of the right hemidiaphragm. Atelectasis at the lung bases and in the lingula. Previously seen right basilar infiltrates and small right pleural effusion have resolved. RPTAT: AA .Renato Espinoza MD, Date Time Electronically viewed and signed by .Renato Espinoza MD, MD on 01/20/2017 10:05 .P/
[2017-01-20] MEDS: PROMETHAZINE/CODEINE 5ML CUP PO PRN (10:58)
--- NOTE | 2017-01-20 12:26 | CONS ---
Date/Time of Note Date/Time of Note DATE: 01/20/17 TIME: 12:24 Assessment/Plan Assessment/Plan Additional Assessment/Plan Chest x-ray was reviewed from today which is essentially clear. Assessment recommendations; 1. Patient admitted for bilateral pneumonia with marked clinical improvement. 2. History of liver transplant. Patient with chronic immunosuppression. 3. Currently on a tapering dose of Solu-Medrol. 4. Diabetes. 5. Hypertension. Patient can be discharged home on home O2. He will not need any further antibiotic dosing. Resume prednisone 5 mg daily which he takes on an outpatient basis. Patient to resume all his other medications for his liver transplant as well as hypertension or diabetes. Consultation Date/Type/Reason Admit Date/Time Jan 12, 2017 at 05:55 Type of Consultation: pulmonary Referring Provider: BETH PATTON 24 HR Interval Summary Free Text/Dictation Patient condition is stable. Wants to go home. Denies any shortness of breath , come to the very minimal cough. Denies any wheezing. Any fever chills. General exam; elderly male, currently in no distress. Awake and alert. Exam/Review of Systems Vital Signs Vitals Vital Signs Date Time Temp Pulse Resp B/P Pulse Ox O2 Delivery O2 Flow Rate FiO2 01/20/17 11:48 98.3 81 18 150/69 91 01/19/17 22:00 Nasal Cannula 3.0 01/19/17 21:00 21 Intake and Output 01/19/17 01/19/17 01/20/17 14:59 22:59 06:59 Intake Total 1320 ml 1250 ml Output Total 3100 ml 2500 ml Balance -1780 ml -1250 ml Exam HEENT exam; supple neck, no JVD. No lymphadenopathy. Midline trachea. No thyromegaly. Pharynx is clear. Chest examination MT: Diminished but clear breath sounds bilaterally. S1-S2 audible, no murmurs. Regular rhythm. Abdomen exam is; soft, nontender. No organomegaly. There are well-healed bilateral subcostal scars present. Extremity exam; no peripheral edema. [employer] examination; no focal deficit. Results Result Diagram: 01/20/17 0718 01/20/17 0718 Results 24 hrs Laboratory Tests Test 01/19/17 17:50 01/19/17 20:52 01/20/17 02:48 01/20/17 07:18 Bedside Glucose 250 H 354 H 316 H White Blood Count 13.1 H Red Blood Count 4.55 L Hemoglobin 12.1 L Hematocrit 38.9 L Mean Corpuscular Volume 85.5 Mean Corpuscular Hemoglobin 26.6 L Mean Corpuscular Hemoglobin Concent 31.1 L Red Cell Distribution Width 17.7 H Platelet Count 187 Mean Platelet Volume 9.5 Neutrophils % 85.3 H Lymphocytes % 2.0 L Monocytes % 5.6 Eosinophils % 0.1 Basophils % 0.2 Nucleated Red Blood Cells % 0.2 H Neutrophils # 11.1 H Lymphocytes # 0.3 L Monocytes # 0.7 Eosinophils # 0.0 Basophils # 0.0 Nucleated Red Blood Cells # 0.0 Prothrombin Time 14.4 #H Prothrombin Time Ratio 1.1 INR International Normalized Ratio 1.12 Activated Partial Thromboplast Time 24.1 L Sodium Level 133 L Potassium Level 4.0 Chloride Level 97 Carbon Dioxide Level 29 Anion Gap 11 Blood Urea Nitrogen 46 H Creatinine 1.15 Glucose Level 315 H Calcium Level 8.3 L Phosphorus Level 2.7 Magnesium Level 2.1 Total Bilirubin 0.4 Direct Bilirubin 0.00 Indirect Bilirubin 0.4 Aspartate Amino Transf (AST/SGOT) 17 Alanine Aminotransferase (ALT/SGPT) 26 Alkaline Phosphatase 72 Total Protein 5.5 L Albumin 2.9 L Test 01/20/17 07:41 01/20/17 11:32 Bedside Glucose 297 H 197 Medications Medications Current Medications Ondansetron HCl (Zofran Inj) 4 mg Q6H PRN IV NAUSEA AND/OR VOMITING; Start at 06:30 Acetaminophen (Tylenol Tab) 650 mg Q6H PRN PO PAIN LEVEL 1-3 OR FEVER; Start at 06:30 Acetaminophen/ Hydrocodone Bitart ([place] (5/325)) 1 tab Q6H PRN PO MODERATE PAIN LEVEL 4-6; Start 01/12/17 at 06:30 Morphine Sulfate (morphine) 2 mg Q4H PRN IV SEVERE PAIN LEVEL 7-10 Last administered on 01/14/17 14:55; Admin Dose 2 MG; Start 01/12/17 at 06:30 Docusate Sodium (Colace) 100 mg Q12H PRN PO CONSTIPATION Last administered on 05:35; Admin Dose 100 MG; Start 01/12/17 at 06:30 Magnesium Hydroxide (Milk Of Mag) 30 ml DAILY PRN PO CONSTIPATION; Start at 06:30 Sodium Biphosphate/ Sodium Phosphate 133 ml 133 ml DAILY PRN [place] CONSTIPATION; Start 01/12/17 at 06:30 Sodium Chloride (1/2 NS) 1,000 ml @ 30 mls/hr Q24H IV Last administered on 00:48; Admin Dose 30 MLS/HR; Start 01/12/17 at 06:08 Lorazepam 0.5 mg 0.5 mg Q6H PRN IV ANXIETY; Start 01/12/17 at 06:30 Piperacillin Sod/ Tazobactam Sod (Zosyn 3.375gm/ 100 ml (Pmx)) 100 ml @ 200 mls /hr Q6 IVPB Last administered on 01/20/17 05:39; Admin Dose 200 MLS/HR; Start 01/12/17 at 12:00 Vancomycin HCl (Vanco Iv Per Pharmacy) VANCOMYCIN PER PHARMACY NOTE XX ; Start 01/12/17 at 06:30 Hydralazine HCl (Apresoline) 10 mg Q6H PRN IV ELEVATED BLOOD PRESSURE Last administered on 01/14/17 08:01; Admin Dose 10 MG; Start 01/12/17 at 06:30 Clonidine (Catapres) 0.1 mg Q6H PRN PO ELEVATED BLOOD PRESSURE; Start 01/12/17 at 06:30 Nitroglycerin (Nitroglycerin (Sl Tab) 0.4 Mg) 1 tab Q5M PRN SL ANGINA; Start at 06:30 Atorvastatin Calcium (Lipitor) 40 mg QHS PO Last administered on 01/19/17 20: 59; Admin Dose 40 MG; Start 01/13/17 at 21:00 Cyclosporine (Neoral) 100 mg BID PO Last administered on 01/20/17 08:20; Admin Dose 100 MG; Start 01/13/17 at 09:00 Dapsone (Dapsone) 100 mg DAILY PO Last administered on 01/15/17 08:07; Admin Dose 100 MG; Start 01/13/17 at 09:00 Dutasteride (Avodart) 0.5 mg DAILY PO Last administered on 01/20/17 08:21; Admin Dose 0.5 MG; Start 01/13/17 at 09:00 Fluticasone Propionate (Flonase 0.05% Nasal) 1 spray DAILY NASAL Last administered on 01/20/17 08:24; Admin Dose 1 SPRAY; Start 01/13/17 at 09:00 Ipratropium [place] (Atrovent Hfa) 2 puff QID INH Last administered on 08:23; Admin Dose 2 PUFF; Start 01/13/17 at 09:00 Valganciclovir (Valcyte) 450 mg BID PO Last administered on 01/20/17 08:18; Admin Dose 450 MG; Start 01/12/17 at 23:00 Mycophenolate Mofetil (Cellcept) 1,000 mg BID PO Last administered on 08:19; Admin Dose 1,000 MG; Start 01/13/17 at 02:45 Magnesium Oxide (Mag-Ox 400) 400 mg BID PO Last administered on 01/20/17 08:40 ; Admin Dose 400 MG; Start 01/13/17 at 21:00 Diagnostic Test (Pha) (Accucheck) 1 ea 02 XX Last administered on 01/18/17 02: 26; Admin Dose 1 EA; Start 01/14/17 at 02:00 Miscellaneous Information 1 ea NOTE XX ; Start 01/13/17 at 15:00 Glucose (Glutose) 15 gm Q15M PRN PO DECREASED GLUCOSE; Start 01/13/17 at 15:00 Glucose (Glutose) 22.5 gm Q15M PRN PO DECREASED GLUCOSE; Start 01/13/17 at 15: 00 Dextrose (D50w Syringe) 25 ml Q15M PRN IV DECREASED GLUCOSE; Start 01/13/17 at 15:00 Dextrose (D50w Syringe) 50 ml Q15M PRN IV DECREASED GLUCOSE; Start 01/13/17 at 15:00 Glucagon (Glucagen) 1 mg Q15M PRN IM DECREASED GLUCOSE; Start 01/13/17 at 15:00 Glucose 15 gm 15 gm Q15M PRN BUCCAL DECREASED GLUCOSE; Start 01/13/17 at 15:00 Vancomycin HCl (Vancocin) 250 ml @ 125 mls/hr Q12H IVPB Last administered on 02:49; Admin Dose 125 MLS/HR; Start 01/14/17 at 03:00 Lisinopril (Zestril) 40 mg DAILY PO Last administered on 01/20/17 08:18; Admin Dose 40 MG; Start 01/14/17 at 11:00 Furosemide (Lasix) 20 mg DAILY IV Last administered on 01/20/17 08:20; Admin Dose 20 MG; Start 01/15/17 at 09:00 Fluconazole (Diflucan) 100 mg DAILY PO Last administered on 01/20/17 08:21; Admin Dose 100 MG; Start 01/15/17 at 12:00 Nystatin (Nystatin Susp) 5 ml QID PO Last administered on 01/20/17 08:19; Admin Dose 5 ML; Start 01/15/17 at 13:00 Salmeterol Xinafoate/ Fluticasone (Advair 250/50 Diskus) 1 inh BID INH Last administered on 01/20/17 08:23; Admin Dose 1 INH; Start 01/15/17 at 14:30 Tiotropium [place] (Spiriva) 1 inh DAILY INH Last administered on 01/20/17 08: 24; Admin Dose 1 INH; Start 01/15/17 at 14:30 Tamsulosin HCl (Flomax) 0.4 mg HS PO Last administered on 01/18/17 21:33; Admin Dose 0.4 MG; Start 01/15/17 at 21:00 Metoprolol Tartrate (Lopressor) 25 mg BID PO Last administered on 01/18/17 21: 15; Admin Dose 25 MG; Start 01/16/17 at 21:00 Insulin Glargine (Lantus) 42 unit BID SC Last administered on 01/20/17 08:36; Admin Dose 42 UNIT; Start 01/18/17 at 09:00 Hydralazine HCl (Apresoline) 25 mg TID PO Last administered on 01/20/17 08:39 ; Admin Dose 25 MG; Start 01/18/17 at 13:00 Linagliptin (Tradjenta) 5 mg DAILY PO Last administered on 01/20/17 08:19; Admin Dose 5 MG; Start 01/18/17 at 11:30 Pantoprazole (Protonix Tab) 40 mg DAILY@06 PO Last administered on 01/20/17 05 :39; Admin Dose 40 MG; Start 01/19/17 at 06:00 Promethazine HCl/ Codeine (Phenergan/ Codeine) 5 ml Q4H PRN PO COUGH Last administered on 01/20/17 10:58; Admin Dose 5 ML; Start 01/19/17 at 11:00 Insulin Human NPH (Humulin N) 15 unit Q8 SC Last administered on 01/20/17 05: 41; Admin Dose 15 UNIT; Start 01/19/17 at 22:00 Methylprednisolone Sodium Succinate (Solu-Medrol) 40 mg DAILY IV Last administered on 01/20/17 09:00; Admin Dose 40 MG; Start 01/20/17 at 09:00 SAMAN MURRAY Jan 20, 2017 12:26
--- NOTE | 2017-01-20 12:27 | PDOCDIS ---
Discharge Instructions CONDITION Patient Condition: Good HOME CARE INSTRUCTIONS: Special Diet: REDUCED CARB- DIABETIC ACTIVITY: Activity Restrictions: No Restrictions FOLLOW UP/APPOINTMENTS Appointments F/U WITH YOUR PCP IN 1-2 WEEKS TINY RENEE Jan 20, 2017 12:27
[2017-01-20] MEDS ORDERED: Promethazine/Codeine Syp PO (12:29)
--- NOTE | 2017-01-20 13:23 | CONS ---
Date/Time of Note Date/Time of Note DATE: 01/20/17 TIME: 13:21 Assessment/Plan Assessment/Plan Chief Complaint/Hosp Course SUBJECTIVE: Alert, feels good, no fevers, nad MICROBIOLOGY: Sputum cx + Enterobacter/C albicans. ANTIMICROBIALS: The patient is on vancomycin, Zosyn, Diflucan, and Valcyte. PHYSICAL EXAMINATION: GENERAL: This is a well-developed elderly man who is alert, in no distress. HEENT: Head atraumatic, normocephalic. Sclerae anicteric. Buccal mucosa dry. NECK: Supple, trachea midline. CHEST: Rise symmetrical. Breath sounds diminished to bases. HEART: S1, S2. ABDOMEN: Soft, bowel tones present. EXTREMITIES: No cyanosis. ASSESSMENT: 1. Sepsis with fevers on admission. 2. Pneumonia, likely community acquired, r/o opportunistic. 3. Hypoxemic respiratory failure. 4. History of primary biliary cirrhosis, status post liver transplant in 1989, on immunosuppressive therapy. 5. Diabetes mellitus. 6. Urinary retention==> s/p Stevens PLAN: Remains stable continue abx, f/u pulmonary//endocrinology rec-s. Will dw dr Zuniga if we can start tapering his abx DW staff Problems: Consultation Date/Type/Reason Admit Date/Time Jan 12, 2017 at 05:55 Type of Consultation: id Referring Provider: BETH PATTON Exam/Review of Systems Vital Signs Vitals Vital Signs Date Time Temp Pulse Resp B/P Pulse Ox O2 Delivery O2 Flow Rate FiO2 01/20/17 12:26 85 01/20/17 11:48 98.3 18 150/69 91 01/19/17 22:00 Nasal Cannula 3.0 01/19/17 21:00 21 Intake and Output 01/19/17 01/19/17 01/20/17 15:00 23:00 07:00 Intake Total 1320 ml 1250 ml Output Total 3100 ml 2500 ml Balance -1780 ml -1250 ml Results Result Diagram: 01/20/17 0718 01/20/17 0718 Results 24 hrs Laboratory Tests Test 01/19/17 17:50 01/19/17 20:52 01/20/17 02:48 01/20/17 07:18 Bedside Glucose 250 H 354 H 316 H White Blood Count 13.1 H Red Blood Count 4.55 L Hemoglobin 12.1 L Hematocrit 38.9 L Mean Corpuscular Volume 85.5 Mean Corpuscular Hemoglobin 26.6 L Mean Corpuscular Hemoglobin Concent 31.1 L Red Cell Distribution Width 17.7 H Platelet Count 187 Mean Platelet Volume 9.5 Neutrophils % 85.3 H Lymphocytes % 2.0 L Monocytes % 5.6 Eosinophils % 0.1 Basophils % 0.2 Nucleated Red Blood Cells % 0.2 H Neutrophils # 11.1 H Lymphocytes # 0.3 L Monocytes # 0.7 Eosinophils # 0.0 Basophils # 0.0 Nucleated Red Blood Cells # 0.0 Prothrombin Time 14.4 #H Prothrombin Time Ratio 1.1 INR International Normalized Ratio 1.12 Activated Partial Thromboplast Time 24.1 L Sodium Level 133 L Potassium Level 4.0 Chloride Level 97 Carbon Dioxide Level 29 Anion Gap 11 Blood Urea Nitrogen 46 H Creatinine 1.15 Glucose Level 315 H Calcium Level 8.3 L Phosphorus Level 2.7 Magnesium Level 2.1 Total Bilirubin 0.4 Direct Bilirubin 0.00 Indirect Bilirubin 0.4 Aspartate Amino Transf (AST/SGOT) 17 Alanine Aminotransferase (ALT/SGPT) 26 Alkaline Phosphatase 72 Total Protein 5.5 L Albumin 2.9 L Test 01/20/17 07:41 01/20/17 11:32 Bedside Glucose 297 H 197 Medications Medications Current Medications Ondansetron HCl (Zofran Inj) 4 mg Q6H PRN IV NAUSEA AND/OR VOMITING; Start at 06:30 Acetaminophen (Tylenol Tab) 650 mg Q6H PRN PO PAIN LEVEL 1-3 OR FEVER; Start at 06:30 Acetaminophen/ Hydrocodone Bitart ([place] (5/325)) 1 tab Q6H PRN PO MODERATE PAIN LEVEL 4-6; Start 01/12/17 at 06:30 Morphine Sulfate (morphine) 2 mg Q4H PRN IV SEVERE PAIN LEVEL 7-10 Last administered on 01/14/17 14:55; Admin Dose 2 MG; Start 01/12/17 at 06:30 Docusate Sodium (Colace) 100 mg Q12H PRN PO CONSTIPATION Last administered on 05:35; Admin Dose 100 MG; Start 01/12/17 at 06:30 Magnesium Hydroxide (Milk Of Mag) 30 ml DAILY PRN PO CONSTIPATION; Start at 06:30 Sodium Biphosphate/ Sodium Phosphate 133 ml 133 ml DAILY PRN [place] CONSTIPATION; Start 01/12/17 at 06:30 Sodium Chloride (1/2 NS) 1,000 ml @ 30 mls/hr Q24H IV Last administered on 00:48; Admin Dose 30 MLS/HR; Start 01/12/17 at 06:08 Lorazepam 0.5 mg 0.5 mg Q6H PRN IV ANXIETY; Start 01/12/17 at 06:30 Piperacillin Sod/ Tazobactam Sod (Zosyn 3.375gm/ 100 ml (Pmx)) 100 ml @ 200 mls /hr Q6 IVPB Last administered on 01/20/17 05:39; Admin Dose 200 MLS/HR; Start 01/12/17 at 12:00 Vancomycin HCl (Vanco Iv Per Pharmacy) VANCOMYCIN PER PHARMACY NOTE XX ; Start 01/12/17 at 06:30 Hydralazine HCl (Apresoline) 10 mg Q6H PRN IV ELEVATED BLOOD PRESSURE Last administered on 01/14/17 08:01; Admin Dose 10 MG; Start 01/12/17 at 06:30 Clonidine (Catapres) 0.1 mg Q6H PRN PO ELEVATED BLOOD PRESSURE; Start 01/12/17 at 06:30 Nitroglycerin (Nitroglycerin (Sl Tab) 0.4 Mg) 1 tab Q5M PRN SL ANGINA; Start at 06:30 Atorvastatin Calcium (Lipitor) 40 mg QHS PO Last administered on 01/19/17 20: 59; Admin Dose 40 MG; Start 01/13/17 at 21:00 Cyclosporine (Neoral) 100 mg BID PO Last administered on 01/20/17 08:20; Admin Dose 100 MG; Start 01/13/17 at 09:00 Dapsone (Dapsone) 100 mg DAILY PO Last administered on 01/15/17 08:07; Admin Dose 100 MG; Start 01/13/17 at 09:00 Dutasteride (Avodart) 0.5 mg DAILY PO Last administered on 01/20/17 08:21; Admin Dose 0.5 MG; Start 01/13/17 at 09:00 Fluticasone Propionate (Flonase 0.05% Nasal) 1 spray DAILY NASAL Last administered on 01/20/17 08:24; Admin Dose 1 SPRAY; Start 01/13/17 at 09:00 Ipratropium [place] (Atrovent Hfa) 2 puff QID INH Last administered on 08:23; Admin Dose 2 PUFF; Start 01/13/17 at 09:00 Valganciclovir (Valcyte) 450 mg BID PO Last administered on 01/20/17 08:18; Admin Dose 450 MG; Start 01/12/17 at 23:00 Mycophenolate Mofetil (Cellcept) 1,000 mg BID PO Last administered on 08:19; Admin Dose 1,000 MG; Start 01/13/17 at 02:45 Magnesium Oxide (Mag-Ox 400) 400 mg BID PO Last administered on 01/20/17 08:40 ; Admin Dose 400 MG; Start 01/13/17 at 21:00 Diagnostic Test (Pha) (Accucheck) 1 ea 02 XX Last administered on 01/18/17 02: 26; Admin Dose 1 EA; Start 01/14/17 at 02:00 Miscellaneous Information 1 ea NOTE XX ; Start 01/13/17 at 15:00 Glucose (Glutose) 15 gm Q15M PRN PO DECREASED GLUCOSE; Start 01/13/17 at 15:00 Glucose (Glutose) 22.5 gm Q15M PRN PO DECREASED GLUCOSE; Start 01/13/17 at 15: 00 Dextrose (D50w Syringe) 25 ml Q15M PRN IV DECREASED GLUCOSE; Start 01/13/17 at 15:00 Dextrose (D50w Syringe) 50 ml Q15M PRN IV DECREASED GLUCOSE; Start 01/13/17 at 15:00 Glucagon (Glucagen) 1 mg Q15M PRN IM DECREASED GLUCOSE; Start 01/13/17 at 15:00 Glucose 15 gm 15 gm Q15M PRN BUCCAL DECREASED GLUCOSE; Start 01/13/17 at 15:00 Vancomycin HCl (Vancocin) 250 ml @ 125 mls/hr Q12H IVPB Last administered on 02:49; Admin Dose 125 MLS/HR; Start 01/14/17 at 03:00 Lisinopril (Zestril) 40 mg DAILY PO Last administered on 01/20/17 08:18; Admin Dose 40 MG; Start 01/14/17 at 11:00 Furosemide (Lasix) 20 mg DAILY IV Last administered on 01/20/17 08:20; Admin Dose 20 MG; Start 01/15/17 at 09:00 Fluconazole (Diflucan) 100 mg DAILY PO Last administered on 01/20/17 08:21; Admin Dose 100 MG; Start 01/15/17 at 12:00 Nystatin (Nystatin Susp) 5 ml QID PO Last administered on 01/20/17 08:19; Admin Dose 5 ML; Start 01/15/17 at 13:00 Salmeterol Xinafoate/ Fluticasone (Advair 250/50 Diskus) 1 inh BID INH Last administered on 01/20/17 08:23; Admin Dose 1 INH; Start 01/15/17 at 14:30 Tiotropium [place] (Spiriva) 1 inh DAILY INH Last administered on 01/20/17 08: 24; Admin Dose 1 INH; Start 01/15/17 at 14:30 Tamsulosin HCl (Flomax) 0.4 mg HS PO Last administered on 01/18/17 21:33; Admin Dose 0.4 MG; Start 01/15/17 at 21:00 Metoprolol Tartrate (Lopressor) 25 mg BID PO Last administered on 01/18/17 21: 15; Admin Dose 25 MG; Start 01/16/17 at 21:00 Insulin Glargine (Lantus) 42 unit BID SC Last administered on 01/20/17 08:36; Admin Dose 42 UNIT; Start 01/18/17 at 09:00 Hydralazine HCl (Apresoline) 25 mg TID PO Last administered on 01/20/17 08:39 ; Admin Dose 25 MG; Start 01/18/17 at 13:00 Linagliptin (Tradjenta) 5 mg DAILY PO Last administered on 01/20/17 08:19; Admin Dose 5 MG; Start 01/18/17 at 11:30 Pantoprazole (Protonix Tab) 40 mg DAILY@06 PO Last administered on 01/20/17 05 :39; Admin Dose 40 MG; Start 01/19/17 at 06:00 Promethazine HCl/ Codeine (Phenergan/ Codeine) 5 ml Q4H PRN PO COUGH Last administered on 01/20/17 10:58; Admin Dose 5 ML; Start 01/19/17 at 11:00 Insulin Human NPH (Humulin N) 15 unit Q8 SC Last administered on 01/20/17 05: 41; Admin Dose 15 UNIT; Start 01/19/17 at 22:00 Methylprednisolone Sodium Succinate (Solu-Medrol) 40 mg DAILY IV Last administered on 01/20/17 09:00; Admin Dose 40 MG; Start 01/20/17 at 09:00 CHRISTINA LOTT NP Jan 20, 2017 13:23
--- NOTE | 2017-01-20 13:33 | CONS ---
Date/Time of Note Date/Time of Note DATE: 01/20/17 TIME: 13:31 Assessment/Plan Assessment/Plan Problems: (1) Steroid-induced hyperglycemia Status: Acute Comment: He is improving and steroids are being reduced. I have adjusted nph, but if steroids stop so does NPH and he returns to his outpatient regimen (2) Diabetes mellitus type 2 in nonobese Status: Chronic Comment: Had adequate control prior to acute sepsis (3) Status post liver transplant Status: Chronic Comment: noted Consultation Date/Type/Reason Admit Date/Time Jan 12, 2017 at 05:55 Initial Consult Date 01/18/17 Type of Consultation: Endocrinology Referring Provider: BETH PATTON 24 HR Interval Summary Constitutional: improved Exam/Review of Systems Vital Signs Vitals Vital Signs Date Time Temp Pulse Resp B/P Pulse Ox O2 Delivery O2 Flow Rate FiO2 01/20/17 12:26 85 01/20/17 11:48 98.3 18 150/69 91 01/19/17 22:00 Nasal Cannula 3.0 01/19/17 21:00 21 Intake and Output 01/19/17 01/19/17 01/20/17 15:00 23:00 07:00 Intake Total 1320 ml 1250 ml Output Total 3100 ml 2500 ml Balance -1780 ml -1250 ml Exam Constitutional: alert Results Result Diagram: 01/20/17 0718 01/20/17 0718 Results 24 hrs Laboratory Tests Test 01/19/17 17:50 01/19/17 20:52 01/20/17 02:48 01/20/17 07:18 Bedside Glucose 250 H 354 H 316 H White Blood Count 13.1 H Red Blood Count 4.55 L Hemoglobin 12.1 L Hematocrit 38.9 L Mean Corpuscular Volume 85.5 Mean Corpuscular Hemoglobin 26.6 L Mean Corpuscular Hemoglobin Concent 31.1 L Red Cell Distribution Width 17.7 H Platelet Count 187 Mean Platelet Volume 9.5 Neutrophils % 85.3 H Lymphocytes % 2.0 L Monocytes % 5.6 Eosinophils % 0.1 Basophils % 0.2 Nucleated Red Blood Cells % 0.2 H Neutrophils # 11.1 H Lymphocytes # 0.3 L Monocytes # 0.7 Eosinophils # 0.0 Basophils # 0.0 Nucleated Red Blood Cells # 0.0 Prothrombin Time 14.4 #H Prothrombin Time Ratio 1.1 INR International Normalized Ratio 1.12 Activated Partial Thromboplast Time 24.1 L Sodium Level 133 L Potassium Level 4.0 Chloride Level 97 Carbon Dioxide Level 29 Anion Gap 11 Blood Urea Nitrogen 46 H Creatinine 1.15 Glucose Level 315 H Calcium Level 8.3 L Phosphorus Level 2.7 Magnesium Level 2.1 Total Bilirubin 0.4 Direct Bilirubin 0.00 Indirect Bilirubin 0.4 Aspartate Amino Transf (AST/SGOT) 17 Alanine Aminotransferase (ALT/SGPT) 26 Alkaline Phosphatase 72 Total Protein 5.5 L Albumin 2.9 L Test 01/20/17 07:41 01/20/17 11:32 Bedside Glucose 297 H 197 Medications Medications Current Medications Ondansetron HCl (Zofran Inj) 4 mg Q6H PRN IV NAUSEA AND/OR VOMITING; Start at 06:30 Acetaminophen (Tylenol Tab) 650 mg Q6H PRN PO PAIN LEVEL 1-3 OR FEVER; Start at 06:30 Acetaminophen/ Hydrocodone Bitart ([place] (5/325)) 1 tab Q6H PRN PO MODERATE PAIN LEVEL 4-6; Start 01/12/17 at 06:30 Morphine Sulfate (morphine) 2 mg Q4H PRN IV SEVERE PAIN LEVEL 7-10 Last administered on 01/14/17 14:55; Admin Dose 2 MG; Start 01/12/17 at 06:30 Docusate Sodium (Colace) 100 mg Q12H PRN PO CONSTIPATION Last administered on 05:35; Admin Dose 100 MG; Start 01/12/17 at 06:30 Magnesium Hydroxide (Milk Of Mag) 30 ml DAILY PRN PO CONSTIPATION; Start at 06:30 Sodium Biphosphate/ Sodium Phosphate 133 ml 133 ml DAILY PRN [place] CONSTIPATION; Start 01/12/17 at 06:30 Sodium Chloride (1/2 NS) 1,000 ml @ 30 mls/hr Q24H IV Last administered on 00:48; Admin Dose 30 MLS/HR; Start 01/12/17 at 06:08 Lorazepam 0.5 mg 0.5 mg Q6H PRN IV ANXIETY; Start 01/12/17 at 06:30 Piperacillin Sod/ Tazobactam Sod (Zosyn 3.375gm/ 100 ml (Pmx)) 100 ml @ 200 mls /hr Q6 IVPB Last administered on 01/20/17 05:39; Admin Dose 200 MLS/HR; Start 01/12/17 at 12:00 Vancomycin HCl (Vanco Iv Per Pharmacy) VANCOMYCIN PER PHARMACY NOTE XX ; Start 01/12/17 at 06:30 Hydralazine HCl (Apresoline) 10 mg Q6H PRN IV ELEVATED BLOOD PRESSURE Last administered on 01/14/17 08:01; Admin Dose 10 MG; Start 01/12/17 at 06:30 Clonidine (Catapres) 0.1 mg Q6H PRN PO ELEVATED BLOOD PRESSURE; Start 01/12/17 at 06:30 Nitroglycerin (Nitroglycerin (Sl Tab) 0.4 Mg) 1 tab Q5M PRN SL ANGINA; Start at 06:30 Atorvastatin Calcium (Lipitor) 40 mg QHS PO Last administered on 01/19/17 20: 59; Admin Dose 40 MG; Start 01/13/17 at 21:00 Cyclosporine (Neoral) 100 mg BID PO Last administered on 01/20/17 08:20; Admin Dose 100 MG; Start 01/13/17 at 09:00 Dapsone (Dapsone) 100 mg DAILY PO Last administered on 01/15/17 08:07; Admin Dose 100 MG; Start 01/13/17 at 09:00 Dutasteride (Avodart) 0.5 mg DAILY PO Last administered on 01/20/17 08:21; Admin Dose 0.5 MG; Start 01/13/17 at 09:00 Fluticasone Propionate (Flonase 0.05% Nasal) 1 spray DAILY NASAL Last administered on 01/20/17 08:24; Admin Dose 1 SPRAY; Start 01/13/17 at 09:00 Ipratropium [place] (Atrovent Hfa) 2 puff QID INH Last administered on 08:23; Admin Dose 2 PUFF; Start 01/13/17 at 09:00 Valganciclovir (Valcyte) 450 mg BID PO Last administered on 01/20/17 08:18; Admin Dose 450 MG; Start 01/12/17 at 23:00 Mycophenolate Mofetil (Cellcept) 1,000 mg BID PO Last administered on 08:19; Admin Dose 1,000 MG; Start 01/13/17 at 02:45 Magnesium Oxide (Mag-Ox 400) 400 mg BID PO Last administered on 01/20/17 08:40 ; Admin Dose 400 MG; Start 01/13/17 at 21:00 Diagnostic Test (Pha) (Accucheck) 1 ea 02 XX Last administered on 01/18/17 02: 26; Admin Dose 1 EA; Start 01/14/17 at 02:00 Miscellaneous Information 1 ea NOTE XX ; Start 01/13/17 at 15:00 Glucose (Glutose) 15 gm Q15M PRN PO DECREASED GLUCOSE; Start 01/13/17 at 15:00 Glucose (Glutose) 22.5 gm Q15M PRN PO DECREASED GLUCOSE; Start 01/13/17 at 15: 00 Dextrose (D50w Syringe) 25 ml Q15M PRN IV DECREASED GLUCOSE; Start 01/13/17 at 15:00 Dextrose (D50w Syringe) 50 ml Q15M PRN IV DECREASED GLUCOSE; Start 01/13/17 at 15:00 Glucagon (Glucagen) 1 mg Q15M PRN IM DECREASED GLUCOSE; Start 01/13/17 at 15:00 Glucose 15 gm 15 gm Q15M PRN BUCCAL DECREASED GLUCOSE; Start 01/13/17 at 15:00 Vancomycin HCl (Vancocin) 250 ml @ 125 mls/hr Q12H IVPB Last administered on 02:49; Admin Dose 125 MLS/HR; Start 01/14/17 at 03:00 Lisinopril (Zestril) 40 mg DAILY PO Last administered on 01/20/17 08:18; Admin Dose 40 MG; Start 01/14/17 at 11:00 Furosemide (Lasix) 20 mg DAILY IV Last administered on 01/20/17 08:20; Admin Dose 20 MG; Start 01/15/17 at 09:00 Fluconazole (Diflucan) 100 mg DAILY PO Last administered on 01/20/17 08:21; Admin Dose 100 MG; Start 01/15/17 at 12:00 Nystatin (Nystatin Susp) 5 ml QID PO Last administered on 01/20/17 08:19; Admin Dose 5 ML; Start 01/15/17 at 13:00 Salmeterol Xinafoate/ Fluticasone (Advair 250/50 Diskus) 1 inh BID INH Last administered on 01/20/17 08:23; Admin Dose 1 INH; Start 01/15/17 at 14:30 Tiotropium [place] (Spiriva) 1 inh DAILY INH Last administered on 01/20/17 08: 24; Admin Dose 1 INH; Start 01/15/17 at 14:30 Tamsulosin HCl (Flomax) 0.4 mg HS PO Last administered on 01/18/17 21:33; Admin Dose 0.4 MG; Start 01/15/17 at 21:00 Metoprolol Tartrate (Lopressor) 25 mg BID PO Last administered on 01/18/17 21: 15; Admin Dose 25 MG; Start 01/16/17 at 21:00 Insulin Glargine (Lantus) 42 unit BID SC Last administered on 01/20/17 08:36; Admin Dose 42 UNIT; Start 01/18/17 at 09:00 Hydralazine HCl (Apresoline) 25 mg TID PO Last administered on 01/20/17 08:39 ; Admin Dose 25 MG; Start 01/18/17 at 13:00 Linagliptin (Tradjenta) 5 mg DAILY PO Last administered on 01/20/17 08:19; Admin Dose 5 MG; Start 01/18/17 at 11:30 Pantoprazole (Protonix Tab) 40 mg DAILY@06 PO Last administered on 01/20/17 05 :39; Admin Dose 40 MG; Start 01/19/17 at 06:00 Promethazine HCl/ Codeine (Phenergan/ Codeine) 5 ml Q4H PRN PO COUGH Last administered on 01/20/17 10:58; Admin Dose 5 ML; Start 01/19/17 at 11:00 Methylprednisolone Sodium Succinate (Solu-Medrol) 40 mg DAILY IV Last administered on 01/20/17 09:00; Admin Dose 40 MG; Start 01/20/17 at 09:00 Insulin Human NPH (Humulin N) 18 unit QAM SC ; Start 01/21/17 at 09:00; Status RITA CLARK MD Jan 20, 2017 13:33
--- NOTE | 2017-01-20 18:44 | DS ---
DATE OF ADMISSION: 01/12/2017 DATE OF DISCHARGE: 01/20/2017 DISCHARGE DIAGNOSES: 1. Sepsis lactic acidosis secondary to pneumonia, now resolved. 2. History of liver transplant. Continue antirejection medications. 3. Acute respiratory distress secondary to pneumonia, now resolved. 4. Hypertension. Continue home medications. 5. 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 She is on Coumadin. 6. Supratherapeutic INR, improved. 7. Benign prostatic hypertrophy with urinary retention likely secondary to anticholinergics. 8. The patient discontinued Stevens. Urology consultation during this hospitalization. 9. Diabetes. Continue home medications. A1c is stable. 10. Oral thrush, resolved. 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 He is status post transplant many years ago on antirejection medications. The patient presents with sepsis secondary to pneumonia. Patient was seen by ID as well as pulmonology and was on antibiotics. The patient's chest x-ray on arrival did show likely right-sided pneumonia . Sputum culture did show Enterobacter and Sheeba. The patient had possible oral thrush and was p ut on antifungals. ID managed antibiotics and hospitalization and the patient was requiring supplem ental oxygen. The patient was seen by endocrinology for steroid-induced hyperglycemia. Of note, A1 c was within normal limits at 7.0. The patient's diabetes has been controlled. The patient ultimat viki was able to wean off oxygen therapy no longer needed O2. Chest x-ray on the day of discharge sh owed resolution of the right-sided pneumonia. After discussion with the pet technologist, it was felt that the patient no longer needs any antibiotics and did not need any home O2. On day of discharge, the patient's vitals, labs, and physical exam was stable. He had no acute complaints. Questions w ere answered. CONDITION ON DISCHARGE: Stable. DISPOSITION: To home. MEDICATIONS: The patient was given a prescription for Phenergan with codeine 5 mL p.o. q.4h. p.r.n . for cough. The patient was to continue his other home medications. FOLLOWUP: The patient is to follow up with his PCP in 1 to 2 weeks. Greater than 30 minutes was spent coordinating treatment and care for the patient. Dictated By: TINY RENEE MD BS/NTS Conf#: [id number] [facility]#: [id number]
[2017-01-21] MEDS ORDERED: NPH, HUMAN INSULIN ISOPHANE 3ML VIAL SC SCH (09:00)
== END 2017-01-20 17:40 | disposition home health service (06) | DRG 871 ==
LOC: E/R 04:00 → MS4 05:55
PROVIDERS: ADMIT Hospitalist; ATTEND Hospitalist
PROC: 5A09357 Assistance with Respiratory Ventilation, Less than 24 Consecutive Hours, Continuous Positive Airway Pressure (ICD-10-PCS; principal; 2017-01-12)
DX: A41.9 Sepsis, unspecified organism (principal); J18.9 Pneumonia, unspecified organism; J96.01 Acute respiratory failure with hypoxia; D68.61 Antiphospholipid syndrome; E11.65 Type 2 diabetes mellitus with hyperglycemia; Z94.4 Liver transplant status; B37.0 Candidal stomatitis; D69.6 Thrombocytopenia, unspecified; E87.1 Hypo-osmolality and hyponatremia; E11.9 Type 2 diabetes mellitus without complications; I10 Essential (primary) hypertension; N40.1 Benign prostatic hyperplasia with lower urinary tract symptoms; R33.8 Other retention of urine; E78.5 Hyperlipidemia, unspecified; R31.0 Gross hematuria; T44.3X5A Adverse effect of other parasympatholytics [anticholinergics and antimuscarinics] and spasmolytics, initial encounter; T38.0X5A Adverse effect of glucocorticoids and synthetic analogues, initial encounter; Y92.230 Patient room in hospital as the place of occurrence of the external cause; Z79.4 Long term (current) use of insulin; Z79.01 Long term (current) use of anticoagulants
CPT/HCPCS: 36415; 36600; 71010; 76775; 80048; 80053; 80061; 80076; 80202; 81001; 81003; 82803; 82947; 82962; 83036; 83605; 83735; 84100; 84439; 84443; 84484; 85025; 85610; 85730; 86850; 86900; 86901; 87040; 87070; 87086; 93005; 93306; 94640; 94660; 94664; 96374; 96375; 96376; 97162; 97166; J1940; J3430; A4310; C9113; J0360; J0692; J1815; J2270; J2543; J2920; J3370; J7030; J7040; J7512; J7517

== ENCOUNTER 2017-01-22 19:40 | Emergency (ER) | payer MEDICARE, BC ==
[~2017-01-22] VITALS: Ht 182.9 cm; Wt 96.5 kg
[~2017-01-22 19:40] MED LIST: ADV25050 INHALATION; ALBU18HF INHALATION; ATOR40TA68 PO; CYCL100C20 PO; DAP100 PO; DUTA0.5C PO; FLUT16SP17 NASAL; FLUT1AER INHALATION; INSU200I SQ; INSU300I SQ; IPRA12.93 INHALATION; LANT3I SC; MAGN400T28 PO; MYCO500T13 PO; OMEP20CA16 PO; PRED5 PO; Promethazine/Codeine Syp PO; UMEC62.5 IH; WARF4TAB52 PO; WARF5TAB72 PO
[2017-01-22 20:15] VITALS: Ht 182.9 cm; Wt 96.5 kg
--- NOTE | 2017-01-22 22:26 | ERA ---
ER Documentation Chief Complaint Date/Time DATE: 01/22/17 TIME: 22:26 Chief Complaint Unable to urinate after Catheter taken out at MD office HPI The patient is a 71-year-old male, presenting to the ER because he has been unable to void after the catheter was removed at the urologist Dr Cox about 12:30 PM today. He has similar symptoms previously. He denies fever, chills, neck pain, chest pain, dyspnea, abdominal pain, vomiting, diarrhea, constipation. He does not smoke, drink Past medical history: Hypertension, antiphospholipid syndrome, history of DVT, BPH, diabetes mellitus, cirrhosis, sclerosing cholangitis Past surgical history: Liver transplant, back, left knee replacement ROS All systems reviewed and are negative except as per history of present illness. Medications Home Meds Active Scripts [Promethazine/Codeine Syp] 5 ML SYRUP No Conflict Check, 5 ML PO Q4H Y for COUGH , #4 OZ Prov:TINY RENEE 01/20/17 Reported Medications Umeclidinium [place] (Incruse Ellipta) 62.5 Mcg Blst.w.dev, 1 PUFF IH DAILY 01/12/17 Omeprazole* (Omeprazole*) 20 Mg Capsule., 20 MG PO BID, #60 CAP 01/12/17 Mycophenolate Mofetil* (Cellcept*) 500 Mg Tablet, 1000 MG PO BID, #120 TAB 01/12/17 Magnesium Oxide* (Magnesium Oxide*) 400 Mg Tablet, 800 MG PO BID, TAB 01/12/17 Insulin Glargine,Hum.rec.anlog ([place]) 300 Unit/1 Ml Insuln.pen, 75 UNIT SQ QAM 01/12/17 Insulin Glargine* (Lantus*) 100 Unit/Ml Soln, 36 UNIT SC QPM, #1 VIAL 01/12/17 Insulin Glargine* (Lantus*) 100 Unit/Ml Soln, 40 UNIT SC QAM, #1 VIAL 01/12/17 Ipratropium [place]* (Atrovent HFA*) 12.9 Gm Aer.w.adap, 2 PUFF INHALATION QID, #1 INHALER 01/12/17 Insulin Lispro (Humalog Kwikpen) 200 Unit/1 Ml Insuln.pen, 22 UNIT SQ TID, EA 01/12/17 Fluticasone-Vilanterol (Breo Ellipta Inhaler) 100-25 Mcg/Actuation Aer.pow.ba, 1 PUFF INHALATION DAILY, #1 INHALER 01/12/17 Fluticasone Propionate* (Fluticasone Propionate* Nasal) 50 Mcg/[place] - 16 Gm [place].susp, 1 SPRAY NASAL DAILY, #1 BOTTLE TO EACH NOSTRIL 01/12/17 Dutasteride* (Avodart*) 0.5 Mg Capsule, 0.5 MG PO DAILY, CAP 01/12/17 Dapsone* (Dapsone*) 100 Mg Tablet, 100 MG PO DAILY, #30 TAB 01/12/17 Atorvastatin* (Atorvastatin*) 40 Mg Tablet, 40 MG PO QHS, #30 TAB 01/12/17 Albuterol Sulfate* (Ventolin HFA*) 18 Gm Hfa.aer.ad, 2 PUFF INHALATION Q4H Y for WHEEZING AND SOB, #1 INHALER 01/12/17 Salmeterol Xinaf/Fluticasone* (Advair*) 250-50 Diskus Inhaler, 1 INH INHALATION BID, #1 INHALER 01/12/17 Warfarin Sodium* (Coumadin*) 5 Mg Tablet, 5 MG PO THURSDAY &THURSDAY, TAB 01/12/17 Warfarin Sodium* (Warfarin Sodium*) 4 Mg Tablet, 4 MG PO ,THU,THU,SAT,SUN, TAB 01/12/17 Magnesium Oxide* (Magnesium Oxide*) 400 Mg Tablet, 400 MG PO BID, TAB 01/12/17 Prednisone* (Prednisone*) 5 Mg Tab, 5 MG PO DAILY, TAB 01/12/17 Cyclosporine* (Neoral*) 100 Mg Cap, 100 MG PO BID, CAP 01/12/17 Allergies Allergies: Coded Allergies: No Known Allergy (Unverified , 01/18/17) PMhx/Soc History of Surgery: Yes (liver transplant; knee replacement (left); lumbar L4-5 ) Anesthesia Reaction: Yes (nauseous after general) Hx Neurological Disorder: No Hx Respiratory Disorders: Yes (Pneumonia) Hx Cardiac Disorders: No (denies) Hx Psychiatric Problems: No Hx Miscellaneous Medical Probl: Yes (DM, pneumonia) Hx Alcohol Use: No Hx Substance Use: No Hx Tobacco Use: No Physical Exam Vitals Vital Signs Date Time Temp Pulse Resp B/P Pulse Ox O2 Delivery O2 Flow Rate FiO2 01/22/17 22:41 98.2 87 20 143/72 100 Room Air 01/22/17 20:15 97.5 93 18 128/58 93 Physical Exam Const: No acute distress. Head: Atraumatic. Eyes: Normal Conjunctiva. ENT: Normal External Ears, Nose and Mouth. Neck: Full range of motion. No meningismus. Resp: Clear to auscultation bilaterally. Cardio: Regular rate and rhythm, no murmurs. Abd: Soft, distended urinary bladder, normal bowel sounds, non tender. Skin: No petechiae or rashes. Back: No midline or flank tenderness. Ext: No cyanosis, or edema. Neur: Awake and alert. No focal deficit Psych: Normal Mood and Affect. Results 24 hrs Laboratory Tests Test 01/22/17 22:36 Bedside Urine pH (LAB) 6.0 Bedside Urine Protein (LAB) Negative Bedside Urine Glucose (UA) 0.1% Bedside Urine Ketones (LAB) Negative Bedside Urine Blood 2+ Bedside Urine Nitrite (LAB) Negative Bedside Urine Leukocyte Esterase (L Negative Procedures/MDM MEDICAL MAKING DECISION: The patient is a [id number]-year-old male, presenting with recurrent acute urinary retention. He was treated with a Stevens catheter that drained out about 900 mL with spontaneous relief. The differential diagnoses considered include but are not limited to cystitis, urethral stricture , cholelithiasis, cholecystitis, cystitis, pancreatitis, hepatitis, gastritis, peptic ulcer disease, gastric ulcer, appendicitis, diverticulitis, cholangitis, choledocholithiasis, partial small bowel obstruction. Departure Diagnosis: Primary Impression: Acute urinary retention Condition: Good Comments I discussed the findings with the patient. I advised the patient to follow-up with his urologist tomorrow, and return if any concern. CARLOS BOUCHER MD Jan 22, 2017 22:26
[2017-01-22 22:38] LABS: URINE BLOOD (Dip) POC 2+ (NEGATIVE)
[2017-01-22 22:41] VITALS: BP 143/72; PULSE 87; RESP 20; TEMP 98.2
== END 2017-01-22 23:04 | disposition home or self-care (01) ==
LOC: E/R 19:40
DX: R33.9 Retention of urine, unspecified (principal); E11.9 Type 2 diabetes mellitus without complications; I10 Essential (primary) hypertension; Z79.01 Long term (current) use of anticoagulants; Z96.652 Presence of left artificial knee joint; Z79.4 Long term (current) use of insulin
CPT/HCPCS: 81003